=== PATIENT | female | born 1960 | race Caucasian/White ===

== ENCOUNTER → 2016-09-24 | Outpatient (CLI) | payer MEDICARE ==
[~2016-09-24] MED LIST: ADVAIR 250/501 EA INH; AMITRIPTYLINE H10 M1 PO; AMOXICILLIN500 M2 PO; ASPIR-LOW81 MG PO; ASPIRIN ENTERIC81 M1 PO; ATIVAN1 MG PO; AUGMENTIN 875875 MG PO; BENICAR5 MG PO; CARAFATE1 G1 PO; CARAFATE1 GM PO; CIPROFLOXACIN500 MG PO; CORDROL20 MG PO; DELTASONE10 MG PO; DELTASONE20 M1 PO; DILTIAZEM CD240 MG PO; DOXYCYCLINE100 M3 PO; DOXYCYCLINE100 MG PO; DOXYCYCLINE20 MG PO; DUONEB 3 MG/3 ML3 M1 INH; Duoneb 3ML 3 MG/3 ML INH; ELIQUIS5 M1 PO; Eliquis PO; FLONASE 0.05% 121 EA NAS; HYDROCODONE BIT1 T11 PO; IBU-8800 MG PO; K + POTASSIUM20 MEQ PO; K-Dur 20MEQ20 MEQ PO; KEFLEX500 MG PO; LASIX40 MG PO; LEVAQUIN750 M1 PO; LEVOFLOXACIN500 MG PO; LISINOPRIL5 MG PO; Lac-Hydrin 12%340 GM TP; MACROBID100 M1 PO; MEDROL DOSEPAK4 MG PO; METFORMIN500 MG PO; METOLAZONE2.5 MG PO; MULTAQ400 MG PO; NAPROSYN500 MG PO; NEXIUM40 MG PO; NORTRIPTYLINE H10 MG PO; OXYCODONE5 M1 PO; OXYGEN NAS; PERCOCET 325 MG1 TA2 PO; PERCOCET 325 MG1 TA5 PO; PERCOCET 325 MG1 TA6 PO; POTASSIUM20 MEQ PO; PRAVACHOL40 MG PO; PRAVASTATIN SOD40 MG PO; PREDNISONE10 MG PO; PREDNISONE20 MG PO; PREVACID30 M1 PO; PROAIR HFA0.09 MG/AC IH; PROTONIX40 MG PO; PROVERA10 MG PO; SINGULAIR10 M1 PO; SINGULAIR10 MG PO; SYMBICORT1 AE1 INH; TRAD5TAB1 PO; TRAMADOL HCL50 MG PO; VANCOCIN1000 MG/25 IV; VENTOLIN H0.09 MG/AC INH; VIBRA-TAB100 MG PO; VIBRAMYCIN100 MG PO; VIRTUSSIN A/C118 ML PO; VITAMIN D2000 IU PO; XANAX0.25 MG PO; ZITHROMAX Z PA250 MG PO; ZITHROMAX250 MG PO; ZITHROMAX500 M1 PO; ZOFRAN4 MG PO; ZOLOFT100 MG PO; ZYRTEC10 MG PO; Zofran4 MG PO
== END | disposition home or self-care (01) ==
LOC: RAD 18:24
DX: J44.1 Chronic obstructive pulmonary disease with (acute) exacerbation (principal); R06.02 Shortness of breath; R05 Cough; R09.89 Other specified symptoms and signs involving the circulatory and respiratory systems

== ENCOUNTER 2016-09-29 18:58 | Emergency (ER) | payer MEDICARE ==
[~2016-09-29] VITALS: Ht 160 cm; Wt 152.4 kg
[2016-09-29 19:04] VITALS: BP 150/73
[2016-09-29 19:34] LABS: BASO % 0.3 % (0.0-1.0); HEMATOCRIT 38.4 % (37.0-47.0); HEMOGLOBIN 11.8 g/dl (12.0-16.0); IG # 0.1 10*3/uL (0.0-0.1); LYMPH # 1.3 10*3/uL (1.3-4.4); LYMPH % 12.7 % (27.0-41.0); MEAN CORPUSCULAR HGB CONC 30.7 g/dl (33.0-37.0); MEAN PLATELET VOLUME 9.8 fl (9.6-12.3); MONO # 0.8 10*3/uL (0.1-1.0); MONO % 7.7 % (3.0-9.0); NEUT # 7.9 10*3/uL (2.3-7.9); NEUT % 78.5 % (47.0-73.0); PLATELET COUNT AUTOMATED 267 10*3/uL (130-400); RED BLOOD COUNT 4.22 10*6/uL (4.10-5.10); RED CELL DISTRI WIDTH 16.1 % (0-14.5); WHITE BLOOD COUNT 10.1 10*3/uL (4.8-10.8)
[2016-09-29 19:45] LABS: PROTHROMBIN TIME 10.4 SECONDS (9.0-12.4)
[2016-09-29 19:54] LABS: ALBUMIN 3.1 gm/dl (3.1-4.5); ALKALINE PHOSPHATASE 110 U/L (45-117); BILIRUBIN, TOTAL 0.8 mg/dl (0.2-1.0); BUN 12 mg/dl (7-24); C-REACTIVE PROTEIN 5.98 MG/DL (0-0.3); CARBON DIOXIDE 28 mmol/L (21-32); CHLORIDE 107 mmol/L (98-107); EST GLOM FILT AFRICAN AMERICAN > 60 ml/min; GLUCOSE 114 mg/dL (65-99); MAGNESIUM 1.9 mg/dL (1.5-2.1); POTASSIUM 4.5 mmol/L (3.5-5.1); SGOT/AST 10 IU/L (3-35); SGPT/ALT 21 U/L (12-78); SODIUM 141 mmol/L (136-145); TOTAL PROTEIN 6.9 gm/dL (6.4-8.2)
[2016-09-29 19:56] LABS: TROPONIN I < 0.015 ng/ml (<0.045)
[2016-09-29 21:11] LABS: BILIRUBIN 1+ (NEGATIVE); BLOOD NEGATIVE (NEGATIVE); CLARITY CLOUDY (CLEAR); COLOR YELLOW (YELLOW); GLUCOSE NEGATIVE (NEGATIVE); KETONE NEGATIVE (NEGATIVE); LEUKO ESTERASE NEGATIVE (NEGATIVE); NITRITE NEGATIVE (NEGATIVE); PROTEIN TRACE (NEGATIVE); SPECIFIC GRAVITY 1.025 (1.005-1.030)
[2016-09-29 21:21] LABS: BACTERIA 4+; RBC 0-2 rbc/hpf (0-2); URINE REFLEX COMMENT YES (NO)
[2016-09-29] MEDS ORDERED: MACROBID100 M1 PO (21:53)
[2016-09-29] MEDS ORDERED: ZOFRAN ODT4 MG SL (21:53)
== END 2016-09-29 21:53 | disposition home or self-care (01) ==
LOC: ED 18:58
PROVIDERS: Emergency Medicine Emergency Medical Services
DX: K52.9 Noninfective gastroenteritis and colitis, unspecified (principal); R82.71 Bacteriuria; I99.8 Other disorder of circulatory system; I48.91 Unspecified atrial fibrillation; E11.9 Type 2 diabetes mellitus without complications; Z88.1 Allergy status to other antibiotic agents; Z79.899 Other long term (current) drug therapy

== ENCOUNTER 2016-10-21 04:43 | Inpatient (IN) | payer MEDICARE ==
[2016-10-21] VITALS (12 sets, daily range): BP systolic 96–175; BP diastolic 40–75
[~2016-10-21] VITALS: Ht 160 cm; Wt 156.7 kg
[~2016-10-21 04:43] MED LIST changes: +ZOFRAN ODT4 MG SL
[2016-10-21 05:36] LABS: BASO # 0.1 10*3/uL (0.0-0.1); BASO % 0.7 % (0.0-1.0); HEMATOCRIT 34.9 % (37.0-47.0); HEMOGLOBIN 10.9 g/dl (12.0-16.0); IG # 0.2 10*3/uL (0.0-0.1); LYMPH # 2.2 10*3/uL (1.3-4.4); LYMPH % 18.4 % (27.0-41.0); MEAN CELL VOLUME 91.8 fl (81.0-99.0); MEAN CORPUSCULAR HGB 28.7 pg (27.0-31.0); MEAN CORPUSCULAR HGB CONC 31.2 g/dl (33.0-37.0); MEAN PLATELET VOLUME 9.9 fl (9.6-12.3); MONO # 0.8 10*3/uL (0.1-1.0); MONO % 6.4 % (3.0-9.0); NEUT # 8.9 10*3/uL (2.3-7.9); NEUT % 72.9 % (47.0-73.0); PLATELET COUNT AUTOMATED 261 10*3/uL (130-400); WHITE BLOOD COUNT 12.2 10*3/uL (4.8-10.8)
[2016-10-21 05:45] LABS: PROTHROMBIN TIME 10.6 SECONDS (9.0-12.4)
[2016-10-21 06:00] LABS: ALBUMIN 3.1 gm/dl (3.1-4.5); ALKALINE PHOSPHATASE 118 U/L (45-117); BILIRUBIN, TOTAL 0.4 mg/dl (0.2-1.0); BUN 15 mg/dl (7-24); CARBON DIOXIDE 29 mmol/L (21-32); CHLORIDE 107 mmol/L (98-107); EST GLOM FILT AFRICAN AMERICAN > 60 ml/min; GLUCOSE 135 mg/dL (65-99); POTASSIUM 4.2 mmol/L (3.5-5.1); SGOT/AST 10 IU/L (3-35); SGPT/ALT 22 U/L (12-78); SODIUM 144 mmol/L (136-145); TOTAL PROTEIN 6.7 gm/dL (6.4-8.2)
[2016-10-21 06:01] LABS: TROPONIN I < 0.015 ng/ml (<0.045)
[2016-10-21 06:32] LABS: BILIRUBIN NEGATIVE (NEGATIVE); BLOOD NEGATIVE (NEGATIVE); CLARITY CLEAR (CLEAR); COLOR YELLOW (YELLOW); GLUCOSE NEGATIVE (NEGATIVE); KETONE NEGATIVE (NEGATIVE); LEUKO ESTERASE NEGATIVE (NEGATIVE); NITRITE NEGATIVE (NEGATIVE); PH 5.5 (5.0-9.0); PROTEIN NEGATIVE (NEGATIVE); SPECIFIC GRAVITY 1.025 (1.005-1.030); UROBILINOGEN 0.2 E.U./dl (0.2-1.0)
[2016-10-21] MEDS ORDERED: ROBITUSSIN AC 110 ML PO (07:00)
[2016-10-21] MEDS ORDERED: NORCO 5-325 TA1 EACH PO (07:01)
[2016-10-21 07:29] LABS: BACTERIA TRACE; URINE REFLEX COMMENT NO (NO)
[2016-10-21 12:16] LABS: CKMB 1.3 ng/ml (0.5-3.6); CPK 83 U/L (26-192); TROPONIN I < 0.015 ng/ml (<0.045)
[2016-10-21 18:49] LABS: CKMB 1.2 ng/ml (0.5-3.6); CPK 97 U/L (26-192)
[2016-10-21 18:52] LABS: TROPONIN I < 0.015 ng/ml (<0.045)
[2016-10-22] VITALS: BP 118/48
[2016-10-22 00:43] LABS: CKMB 0.9 ng/ml (0.5-3.6); CPK 84 U/L (26-192)
[2016-10-22 00:48] LABS: TROPONIN I < 0.015 ng/ml (<0.045)
[2016-10-22 06:57] LABS: HEMATOCRIT 33.3 % (37.0-47.0); HEMOGLOBIN 10.4 g/dl (12.0-16.0); MEAN CELL VOLUME 92.5 fl (81.0-99.0); MEAN CORPUSCULAR HGB 28.9 pg (27.0-31.0); MEAN CORPUSCULAR HGB CONC 31.2 g/dl (33.0-37.0); MEAN PLATELET VOLUME 9.9 fl (9.6-12.3); PLATELET COUNT AUTOMATED 220 10*3/uL (130-400); RED CELL DISTRI WIDTH 16.4 % (0-14.5); WHITE BLOOD COUNT 8.3 10*3/uL (4.8-10.8)
[2016-10-22 07:09] LABS: BUN 10 mg/dl (7-24); CARBON DIOXIDE 30 mmol/L (21-32); CHLORIDE 105 mmol/L (98-107); EST GLOM FILT AFRICAN AMERICAN > 60 ml/min; GLUCOSE 240 mg/dL (65-99); POTASSIUM 4.9 mmol/L (3.5-5.1); SODIUM 142 mmol/L (136-145)
[2016-10-22 07:10] LABS: HEMOGLOBIN A1c 6.9 % (4.8-5.6)
[2016-10-22 07:13] LABS: CHOLESTEROL 135 mg/dL (<200); FREE T4 1.19 ng/dl (0.76-1.46); HDL CHOLESTEROL 84 mg/dl (40-60); LDL CHOLESTEROL 37 mg/dL (9-159); PHOSPHOROUS 3.4 mg/dL (2.5-4.9); TRIGLYCERIDES 71 mg/dl (<150); VLDL CHOLESTEROL 14 mg/dL (6-40)
[2016-10-22 07:18] LABS: EOSINOPHIL # 0.1 10*3/uL (0-0.4); EOSINOPHILS 1 % (1-4); LYMPHOCYTE # 0.4 10*3/uL (1.3-4.4); MONOCYTE # 0.1 10*3/uL (0.1-1.0); MYELOCYTES 1 % (0-0); NEUTROPHIL # 7.6 10*3/uL (2.3-7.9); NEUTROPHILS 92 % (47-73); POLYCHROMASIA SLIGHT; TOTAL CELLS COUNTED 100 #CELLS
[2016-10-22 07:19] LABS: PLATELET SUFFICIENCY NORMAL (NORMAL)
[2016-10-22 07:52] LABS: FOLIC ACID 9.36 ng/mL (>5.38); VITAMIN D, 25-HYDROXY 29.7 ng/mL (30-100)
[2016-10-22 08:00] VITALS: BP 128/76; BP 159/77
[2016-10-22 12:00] VITALS: BP 147/73; BP 160/75
[2016-10-22 16:00] VITALS: BP 138/72
[2016-10-22 20:00] VITALS: BP 145/67
[2016-10-23] VITALS: BP 148/66
[2016-10-23 07:09] LABS: HEMATOCRIT 33.4 % (37.0-47.0); HEMOGLOBIN 10.4 g/dl (12.0-16.0); MEAN CELL VOLUME 90.3 fl (81.0-99.0); MEAN CORPUSCULAR HGB 28.1 pg (27.0-31.0); MEAN CORPUSCULAR HGB CONC 31.1 g/dl (33.0-37.0); MEAN PLATELET VOLUME 10.6 fl (9.6-12.3); PLATELET COUNT AUTOMATED 251 10*3/uL (130-400); RED CELL DISTRI WIDTH 16.3 % (0-14.5); WHITE BLOOD COUNT 12.5 10*3/uL (4.8-10.8)
[2016-10-23 07:36] LABS: MONOCYTE # 0.3 10*3/uL (0.1-1.0); NEUTROPHIL # 11.3 10*3/uL (2.3-7.9); NEUTROPHILS 90 % (47-73); PLATELET SUFFICIENCY NORMAL (NORMAL); TOTAL CELLS COUNTED 100 #CELLS
[2016-10-23 08:00] VITALS: BP 157/90
[2016-10-23 12:00] VITALS: BP 114/69
[2016-10-23] MEDS ORDERED: DOXYCYCLINE100 MG PO (13:12)
[2016-10-23] MEDS ORDERED: PREDNISONE10 MG PO (13:12)
[2016-10-23] MEDS ORDERED: PERCOCET 325 MG1 TA6 PO (13:52)
== END 2016-10-23 14:40 | disposition home or self-care (01) | DRG 872 ==
LOC: ED 04:43 → 5E 06:14 → EDHOLD 06:14 → ICCU 06:22 → 5E 17:58
PROVIDERS: Emergency Medicine Emergency Medical Services; Student in an Organized Health Care Education/Training Program
DX: A41.9 Sepsis, unspecified organism (principal); Z99.81 Dependence on supplemental oxygen; J44.1 Chronic obstructive pulmonary disease with (acute) exacerbation; I50.32 Chronic diastolic (congestive) heart failure; I11.0 Hypertensive heart disease with heart failure; D64.9 Anemia, unspecified; E11.9 Type 2 diabetes mellitus without complications; Z68.44 Body mass index [BMI] 60.0-69.9, adult; R74.8 Abnormal levels of other serum enzymes; E66.01 Morbid (severe) obesity due to excess calories; I48.0 Paroxysmal atrial fibrillation; Z87.440 Personal history of urinary (tract) infections; Z87.01 Personal history of pneumonia (recurrent); Z90.49 Acquired absence of other specified parts of digestive tract; Z87.891 Personal history of nicotine dependence; Z82.5 Family history of asthma and other chronic lower respiratory diseases; Z88.1 Allergy status to other antibiotic agents; Z91.048 Other nonmedicinal substance allergy status; Z79.82 Long term (current) use of aspirin; Z79.84 Long term (current) use of oral hypoglycemic drugs; Z79.899 Other long term (current) drug therapy; Z85.42 Personal history of malignant neoplasm of other parts of uterus

== ENCOUNTER 2016-11-11 17:05 | Emergency (ER) | payer MEDICARE ==
[~2016-11-11] VITALS: Ht 160 cm; Wt 149.7 kg
[~2016-11-11 17:05] MED LIST changes: +NORCO 5-325 TA1 EACH PO; +ROBITUSSIN AC 110 ML PO
[2016-11-11 18:10] VITALS: BP 107/46
[2016-11-11 19:28] LABS: HEMATOCRIT 33.6 % (37.0-47.0); HEMOGLOBIN 10.7 g/dl (12.0-16.0); MEAN CELL VOLUME 91.8 fl (81.0-99.0); MEAN CORPUSCULAR HGB 29.2 pg (27.0-31.0); MEAN CORPUSCULAR HGB CONC 31.8 g/dl (33.0-37.0); MEAN PLATELET VOLUME 10.4 fl (9.6-12.3); PLATELET COUNT AUTOMATED 202 10*3/uL (130-400); RED BLOOD COUNT 3.66 10*6/uL (4.10-5.10); RED CELL DISTRI WIDTH 16.3 % (0-14.5); WHITE BLOOD COUNT 8.3 10*3/uL (4.8-10.8)
[2016-11-11 19:41] LABS: ALBUMIN 3.4 gm/dl (3.1-4.5); ALKALINE PHOSPHATASE 87 U/L (45-117); BILIRUBIN, TOTAL 0.7 mg/dl (0.2-1.0); BUN 12 mg/dl (7-24); CARBON DIOXIDE 27 mmol/L (21-32); CHLORIDE 106 mmol/L (98-107); EST GLOM FILT AFRICAN AMERICAN > 60 ml/min; GLUCOSE 97 mg/dL (65-99); POTASSIUM 4.1 mmol/L (3.5-5.1); SGOT/AST 19 IU/L (3-35); SGPT/ALT 47 U/L (12-78); SODIUM 142 mmol/L (136-145)
[2016-11-11 19:54] LABS: EOSINOPHIL # 0.2 10*3/uL (0-0.4); EOSINOPHILS 2 % (1-4); LYMPHOCYTE # 1.9 10*3/uL (1.3-4.4); MONOCYTE # 0.5 10*3/uL (0.1-1.0); NEUTROPHIL # 5.7 10*3/uL (2.3-7.9); NEUTROPHILS 69 % (47-73); TOTAL CELLS COUNTED 100 #CELLS
[2016-11-11 19:55] LABS: PLATELET SUFFICIENCY NORMAL (NORMAL)
[2016-11-11] MEDS ORDERED: DOXYCYCLINE100 M3 PO (20:51)
[2016-11-11 20:57] LABS: BILIRUBIN 1+ (NEGATIVE); BLOOD TRACE-INTACT (NEGATIVE); CLARITY CLOUDY (CLEAR); COLOR YELLOW (YELLOW); GLUCOSE NEGATIVE (NEGATIVE); KETONE TRACE (NEGATIVE); LEUKO ESTERASE 1+ (NEGATIVE); NITRITE NEGATIVE (NEGATIVE); PH 5.5 (5.0-9.0); PROTEIN 2+ (NEGATIVE); SPECIFIC GRAVITY >= 1.030 (1.005-1.030)
[2016-11-11 21:10] LABS: BACTERIA 4+; MUCOUS TRACE; URINE REFLEX COMMENT YES (NO); WBC TNTC wbc/hpf (0-5)
== END 2016-11-11 21:07 | disposition home or self-care (01) ==
LOC: ED 17:05
PROVIDERS: Registered Nurse
DX: J20.9 Acute bronchitis, unspecified (principal); Z87.891 Personal history of nicotine dependence; Z90.49 Acquired absence of other specified parts of digestive tract; Z88.1 Allergy status to other antibiotic agents; Z88.2 Allergy status to sulfonamides; Z79.899 Other long term (current) drug therapy; J44.9 Chronic obstructive pulmonary disease, unspecified; I10 Essential (primary) hypertension

== ENCOUNTER 2016-12-02 16:42 | Inpatient (IN) | payer MEDICARE ==
[~2016-12-02] VITALS: Ht 160 cm; Wt 158.4 kg
--- NOTE | ~2016-12-02 | CON ---
[place], [place] REPORT OF CONSULTATION NAME: TAMEKA DALTON [facility] #: [id number] UNIT #: [id number] ROOM: 531 DOCTOR: RODRIGO SANTIAGO MD BIRTHDATE: [birth year] DOS: 12/03/2016 REQUESTING PHYSICIAN: Dr. Wallace. INDICATION: Palpitation. ASSESSMENT: 1. Current presentation with recurrent symptomatic palpitation. 2. Evidence of recurrent atrial fibrillation that appears to be quite symptomatic. 3. Morbid obesity. 4. History of severe chronic obstructive pulmonary disease, on home oxygen. 5. Diabetes. 6. Hypertension. 7. Hyperlipidemia. 8. Similar presentation in October of last month. PLAN: 1. Cycle cardiac enzymes. 2. Continue Eliquis/Cardizem. 3. Continue Multaq. 4. EP consultation to consider ablation. 5. Consider sleep study for possible obstructive sleep apnea on CPAP. 6. Exercise, weight loss. 7. Consider gastric bypass. 8. The patient can be discharged home. 9. Stop aspirin and Lovenox while on Eliquis. 10. Early followup with Dr. Mcconnell or Dr. Moss within 1-2 weeks. HISTORY OF PRESENT ILLNESS: The patient is a pleasant 55-year-old female well known to our group with Dr. Moss. The patient carries history of paroxysmal atrial fibrillation. The patient apparently presented to the Emergency Room with recurrent symptomatic palpitation with fast heart rate. This occurred during the night. The patient felt quite uncomfortable. The episode lasted about 13 hours, prior to presenting to the Emergency Room. The patient was given her medication. She converted back to normal sinus rhythm by the time I am seeing her today. At no time, she had any chest pain, chest pressure, heaviness, or tightness. No dizziness, lightheadedness or near syncope. No fever, no chills, no night sweats. The patient on constant nasal cannula oxygen. Maintained good appetite, no weight loss. No significant weight change recently. No cough. No fever, no chills. PAST MEDICAL HISTORY: As detailed in my assessment. SOCIAL HISTORY: The patient quit smoking 5 years ago. No current alcohol or illicit drug abuse. FAMILY HISTORY: The patient's mother is still alive at age 73. Her father at age 79 of COPD. She has 3 brothers, but no sisters with no reported early family history of heart disease. [place], [place] REPORT OF CONSULTATION NAME: TAMEKA DALTON UNIT #: [id number] ROOM: 531 DOCTOR: RODRIGO SANTIAGO MD BIRTHDATE: [birth year] CURRENT MEDICATIONS: Zocor, vitamin D, potassium, Macrobid, Glucophage, Lasix, Lovenox, Multaq, Cardizem, aspirin, Eliquis, insulin, Dulera, Protonix, Ventolin, Percocet, Restoril, morphine, MOM, Dulcolax, Tylenol and [place]. ALLERGIES: THE PATIENT IS ALLERGIC TO SULFA, BACTRIM. REVIEW OF SYSTEMS: Currently, the patient denies any headache, diplopia or blurry vision. No fever, no chills, no night sweats. No abdominal pain, no bright red blood per rectum or tarry stools. The patient admits to joint pain, but no muscular pain. No anxiety or depression. No polyuria, no polydipsia, no skin rash. Review of all other systems has been negative. PHYSICAL EXAMINATION: GENERAL: The patient is alert, oriented x3, quite pleasant. VITAL SIGNS: Blood pressure 125/74, heart rate 71, respiratory rate of 20, temperature 97.9. HEENT: Extraocular muscles intact. Pupils equal, round, reactive to light. Conjunctivae: No pallor. Throat: No petechiae. NECK: Good upstroke. Unable to appreciate any bruit, no lymphadenopathy, no thyromegaly. HEART: S1, S2 with holosystolic murmur left upper sternal border, distant heart sounds. Unable to appreciate any rub, no retrosternal heave. CHEST AND BACK: No deformities. LUNGS: Significant decreased air movement, but no jo ann wheezing or rales. ABDOMEN: Morbidly obese, soft, nontender, present bowel sounds, no masses, no bruits. LOWER EXTREMITIES: There is mild to moderate lymphedema, 2/4 bilateral with inability to palpate distal pulses. NEUROLOGIC: Grossly nonfocal. SKIN: No significant rash (venous stasis in lower extremities). LABORATORY DATA: White count 8.8, hemoglobin 9.5, potassium 3.6, GFR more than 60%. Troponin less than 0.015 x3. Normal thyroid function test. RODRIGO SANTIAGO MD CM:CONSTR:REPORT OF CONSULTATION 1251 12/04/16 0116 interface
[2016-12-02 16:55] VITALS: BP 134/99
[2016-12-02] MEDS ORDERED: MACROBID100 M1 PO (16:59)
[2016-12-02 17:28] LABS: BASO % 0.3 % (0.0-1.0); EOS % 0.1 % (1.0-4.0); HEMATOCRIT 33.8 % (37.0-47.0); HEMOGLOBIN 10.3 g/dl (12.0-16.0); IG # 0.2 10*3/uL (0.0-0.1); LYMPH # 1.7 10*3/uL (1.3-4.4); LYMPH % 14.3 % (27.0-41.0); MEAN CELL VOLUME 95.8 fl (81.0-99.0); MEAN CORPUSCULAR HGB 29.2 pg (27.0-31.0); MEAN CORPUSCULAR HGB CONC 30.5 g/dl (33.0-37.0); MEAN PLATELET VOLUME 10.2 fl (9.6-12.3); MONO # 0.9 10*3/uL (0.1-1.0); MONO % 7.3 % (3.0-9.0); NEUT # 9.1 10*3/uL (2.3-7.9); NEUT % 76.5 % (47.0-73.0); PLATELET COUNT AUTOMATED 235 10*3/uL (130-400); RED BLOOD COUNT 3.53 10*6/uL (4.10-5.10); RED CELL DISTRI WIDTH 16.6 % (0-14.5); WHITE BLOOD COUNT 11.9 10*3/uL (4.8-10.8)
[2016-12-02 17:44] LABS: BILIRUBIN NEGATIVE (NEGATIVE); BLOOD NEGATIVE (NEGATIVE); CLARITY CLEAR (CLEAR); COLOR YELLOW (YELLOW); GLUCOSE NEGATIVE (NEGATIVE); KETONE TRACE (NEGATIVE); LEUKO ESTERASE NEGATIVE (NEGATIVE); NITRITE NEGATIVE (NEGATIVE); PH 5.5 (5.0-9.0); PROTEIN TRACE (NEGATIVE); SPECIFIC GRAVITY 1.025 (1.005-1.030); UROBILINOGEN 0.2 E.U./dl (0.2-1.0)
[2016-12-02 17:45] LABS: ALBUMIN 3.1 gm/dl (3.1-4.5); ALKALINE PHOSPHATASE 91 U/L (45-117); BILIRUBIN, TOTAL 0.4 mg/dl (0.2-1.0); BUN 13 mg/dl (7-24); C-REACTIVE PROTEIN 1.05 MG/DL (0-0.3); CARBON DIOXIDE 28 mmol/L (21-32); CHLORIDE 110 mmol/L (98-107); CKMB 1.3 ng/ml (0.5-3.6); CPK 73 U/L (26-192); EST GLOM FILT AFRICAN AMERICAN > 60 ml/min; GLUCOSE 110 mg/dL (65-99); POTASSIUM 3.5 mmol/L (3.5-5.1); SGOT/AST 11 IU/L (3-35); SGPT/ALT 23 U/L (12-78); SODIUM 149 mmol/L (136-145); TOTAL PROTEIN 6.4 gm/dL (6.4-8.2)
[2016-12-02 17:51] LABS: TROPONIN I < 0.015 ng/ml (<0.045)
[2016-12-02 17:54] LABS: PROTHROMBIN TIME 10.4 SECONDS (9.0-12.4)
[2016-12-02 18:17] LABS: BACTERIA TRACE
[2016-12-02 18:18] LABS: EPITHELIAL CELLS 25-30; URINE REFLEX COMMENT NO (NO)
[2016-12-02 21:21] VITALS: BP 131/60
[2016-12-02] MEDS ORDERED: PRAVACHOL40 MG PO (22:10)
[2016-12-02] MEDS ORDERED: VITAMIN D1000 IU PO (22:12)
[2016-12-03] VITALS: BP 141/75
[2016-12-03 04:57] LABS: BASO % 0.3 % (0.0-1.0); HEMATOCRIT 30.9 % (37.0-47.0); HEMOGLOBIN 9.5 g/dl (12.0-16.0); IG # 0.1 10*3/uL (0.0-0.1); LYMPH # 1.5 10*3/uL (1.3-4.4); LYMPH % 17.1 % (27.0-41.0); MEAN CELL VOLUME 96.6 fl (81.0-99.0); MEAN CORPUSCULAR HGB 29.7 pg (27.0-31.0); MEAN CORPUSCULAR HGB CONC 30.7 g/dl (33.0-37.0); MEAN PLATELET VOLUME 10.3 fl (9.6-12.3); MONO # 0.6 10*3/uL (0.1-1.0); MONO % 6.5 % (3.0-9.0); NEUT # 6.6 10*3/uL (2.3-7.9); NUCLEATED RED BLOOD CELL 0.2 % (0.0-0.0); PLATELET COUNT AUTOMATED 184 10*3/uL (130-400); RED CELL DISTRI WIDTH 16.5 % (0-14.5); WHITE BLOOD COUNT 8.8 10*3/uL (4.8-10.8)
[2016-12-03 05:09] LABS: BUN 9 mg/dl (7-24); CARBON DIOXIDE 31 mmol/L (21-32); CHLORIDE 109 mmol/L (98-107); EST GLOM FILT AFRICAN AMERICAN > 60 ml/min; GLUCOSE 86 mg/dL (65-99); MAGNESIUM 1.9 mg/dL (1.5-2.1); POTASSIUM 3.6 mmol/L (3.5-5.1); SODIUM 149 mmol/L (136-145)
[2016-12-03 05:14] LABS: FREE T4 1.16 ng/dl (0.76-1.46); PHOSPHOROUS 3.3 mg/dL (2.5-4.9)
[2016-12-03 08:00] VITALS: BP 137/66
[2016-12-03 12:00] VITALS: BP 125/74
[2016-12-03 16:00] VITALS: BP 135/47
[2016-12-03 20:00] VITALS: BP 121/56
[2016-12-04] VITALS: BP 124/52
[2016-12-04 08:00] VITALS: BP 130/50
== END 2016-12-04 12:30 | disposition home or self-care (01) | DRG 309 ==
LOC: ED 16:42 → EDHOLD 18:58 → 5E 18:58
PROVIDERS: Emergency Medicine; Internal Medicine
DX: I48.0 Paroxysmal atrial fibrillation (principal); E87.0 Hyperosmolality and hypernatremia; I50.32 Chronic diastolic (congestive) heart failure; I11.0 Hypertensive heart disease with heart failure; Z68.43 Body mass index [BMI] 50.0-59.9, adult; E11.65 Type 2 diabetes mellitus with hyperglycemia; E66.01 Morbid (severe) obesity due to excess calories; E78.5 Hyperlipidemia, unspecified; D64.9 Anemia, unspecified; J44.9 Chronic obstructive pulmonary disease, unspecified; Z85.59 Personal history of malignant neoplasm of other urinary tract organ; Z98.891 History of uterine scar from previous surgery; Z90.49 Acquired absence of other specified parts of digestive tract; Z87.891 Personal history of nicotine dependence; Z82.5 Family history of asthma and other chronic lower respiratory diseases; Z91.048 Other nonmedicinal substance allergy status; Z88.2 Allergy status to sulfonamides; Z88.8 Allergy status to other drugs, medicaments and biological substances; Z79.82 Long term (current) use of aspirin; Z79.84 Long term (current) use of oral hypoglycemic drugs; Z79.899 Other long term (current) drug therapy

== ENCOUNTER → 2016-12-27 | Outpatient (CLI) | payer MEDICARE ==
[~2016-12-27] MED LIST changes: +VITAMIN D1000 IU PO
== END | disposition home or self-care (01) ==
LOC: CARD 02:58
DX: I48.0 Paroxysmal atrial fibrillation (principal); J44.9 Chronic obstructive pulmonary disease, unspecified; E11.8 Type 2 diabetes mellitus with unspecified complications; E78.01 Familial hypercholesterolemia; I10 Essential (primary) hypertension; Z72.0 Tobacco use

== ENCOUNTER 2017-03-10 15:44 | Emergency (ER) | payer MEDICARE ==
[~2017-03-10] VITALS: Wt 158.8 kg
--- NOTE | ~2017-03-10 | EKG ---
[place], [place] ELECTROCARDIOGRAM REPORT NAME: TAMEKA DALTON UNIT #: [id number] ROOM: DOCTOR: SHONA CLARK MD BIRTHDATE: [birth year] DOS: 03/10/2017 RATE AND RHYTHM: Normal sinus rhythm at 62 beats per minute. VA interval 144 milliseconds. QRS duration 101 milliseconds, corrected QT interval 433 milliseconds, QRS axis 42. IMPRESSION: Normal sinus rhythm, normal EKG. TIME: 16:50:39. SHONA CLARK MD CM:EKGRPT:ELECTROCARDIOGRAM REPORT [id number] SHONA CLARK MD
[2017-03-10 15:29] LABS: BASO % 0.3 % (0.0-1.0); HEMATOCRIT 35.6 % (37.0-47.0); HEMOGLOBIN 10.9 g/dl (12.0-16.0); MEAN CELL VOLUME 93.4 fl (81.0-99.0); MEAN CORPUSCULAR HGB 28.6 pg (27.0-31.0); MEAN CORPUSCULAR HGB CONC 30.6 g/dl (33.0-37.0); MEAN PLATELET VOLUME 10.4 fl (9.6-12.3); MONO # 0.7 10*3/uL (0.1-1.0); MONO % 5.9 % (3.0-9.0); NEUT % 75.3 % (47.0-73.0); PLATELET COUNT AUTOMATED 240 10*3/uL (130-400); RED BLOOD COUNT 3.81 10*6/uL (4.10-5.10); RED CELL DISTRI WIDTH 14.6 % (0-14.5); WHITE BLOOD COUNT 11.9 10*3/uL (4.8-10.8)
[2017-03-10 15:59] VITALS: BP 118/60
[2017-03-10 16:13] LABS: ALBUMIN 3.2 gm/dl (3.1-4.5); ALKALINE PHOSPHATASE 121 U/L (45-117); BUN 12 mg/dl (7-24); CHLORIDE 106 mmol/L (98-107); CREATININE 0.86 mg/dL (0.55-1.02); POTASSIUM 4.2 mmol/L (3.5-5.1); SGOT/AST 12 IU/L (3-35); SGPT/ALT 24 U/L (12-78); SODIUM 142 mmol/L (136-145); TOTAL PROTEIN 7.2 gm/dL (6.4-8.2)
[2017-03-10 16:23] LABS: BILIRUBIN 1+ (NEGATIVE); BLOOD 2+ (NEGATIVE); CLARITY CLOUDY (CLEAR); COLOR YELLOW (YELLOW); GLUCOSE NEGATIVE (NEGATIVE); KETONE TRACE (NEGATIVE); LEUKO ESTERASE 3+ (NEGATIVE); NITRITE NEGATIVE (NEGATIVE); PH 5.5 (5.0-9.0); SPECIFIC GRAVITY 1.025 (1.005-1.030); UROBILINOGEN 0.2 E.U./dl (0.2-1.0)
[2017-03-10 16:43] LABS: BACTERIA 2+; RBC TNTC rbc/hpf (0-2); WBC TNTC wbc/hpf (0-5)
[2017-03-10 17:14] LABS: ACT PARTIAL THROMBO TIME 24.6 SECONDS (20.8-31.5)
[2017-03-10 17:23] LABS: CKMB 1.6 ng/ml (0.5-3.6); CPK 102 U/L (26-192); LIPASE 110 U/L (73-393)
[2017-03-10 17:25] LABS: TROPONIN I < 0.015 ng/ml (<0.045)
[2017-03-10] MEDS ORDERED: CEPHALEXIN500 M1 PO (18:36)
[2017-03-10] MEDS ORDERED: MEDROL DOSEPAK4 MG PO (18:37)
== END 2017-03-10 19:01 | disposition home or self-care (01) ==
LOC: ED 15:45
PROVIDERS: Emergency Medicine; Nurse Practitioner Family; Urology
DX: N39.0 Urinary tract infection, site not specified (principal); J44.9 Chronic obstructive pulmonary disease, unspecified; I11.0 Hypertensive heart disease with heart failure; I50.30 Unspecified diastolic (congestive) heart failure; E11.9 Type 2 diabetes mellitus without complications; Z88.1 Allergy status to other antibiotic agents; Z88.8 Allergy status to other drugs, medicaments and biological substances; Z79.899 Other long term (current) drug therapy

== ENCOUNTER → 2017-03-19 | Outpatient (CLI) | payer MEDICARE ==
[~2017-03-19] MED LIST changes: +CEPHALEXIN500 M1 PO
[2017-03-19 11:31] LABS: BILIRUBIN NEGATIVE (NEGATIVE); BLOOD NEGATIVE (NEGATIVE); CLARITY SL CLOUDY (CLEAR); COLOR YELLOW (YELLOW); GLUCOSE NEGATIVE (NEGATIVE); KETONE NEGATIVE (NEGATIVE); LEUKO ESTERASE NEGATIVE (NEGATIVE); NITRITE NEGATIVE (NEGATIVE); PH 5.5 (5.0-9.0); UROBILINOGEN 0.2 E.U./dl (0.2-1.0)
[2017-03-19 11:45] LABS: MUCOUS 2+
== END | disposition home or self-care (01) ==
LOC: LAB 10:52
PROVIDERS: Nurse Practitioner Family
DX: N39.0 Urinary tract infection, site not specified (principal)

== ENCOUNTER → 2017-06-11 | Outpatient (CLI) | payer MEDICARE | END | disposition home or self-care (01) | LOC: MAMMO 13:48 | DX: Z12.31 Encounter for screening mammogram for malignant neoplasm of breast (principal) ==

== ENCOUNTER → 2017-08-02 | Outpatient (CLI) | payer MEDICARE | END | disposition home or self-care (01) | LOC: RAD 17:09 | DX: S93.504A Unspecified sprain of right lesser toe(s), initial encounter (principal); X58.XXXA Exposure to other specified factors, initial encounter; Y93.89 Activity, other specified; Y92.89 Other specified places as the place of occurrence of the external cause; Y99.8 Other external cause status ==

== ENCOUNTER → 2017-08-08 | Outpatient (CLI) | payer MEDICARE | END | disposition home or self-care (01) | LOC: CT 14:44 | DX: S92.911D Unspecified fracture of right toe(s), subsequent encounter for fracture with routine healing (principal); X58.XXXD Exposure to other specified factors, subsequent encounter ==

== ENCOUNTER 2017-08-19 16:08 | Inpatient (IN) | payer MEDICARE ==
[~2017-08-19] VITALS: Ht 157.5 cm; Wt 165.7 kg
--- NOTE | ~2017-08-19 | WRIGHTHP ---
[place], [place] PATIENT HISTORY AND PHYSICAL EXAM NAME: TAMEKA DALTON [facility] #: [id number] UNIT #: [id number] ROOM: 517 DOCTOR: SHONA CLARK MD BIRTHDATE: [birth year] DOS: The patient is being directly admitted from the office. CHIEF COMPLAINT: 1. Shortness of breath, all weekend. 2. The patient thinks she has UTI. HISTORY OF PRESENTING ILLNESS: This is a 56-year-old patient who has known history of COPD. She came to the office with shortness of breath and productive phlegm. The patient had dyspnea on exertion. The patient is on home oxygen at 2.5 liters. She denies any associated chest pain, fever, chills, nausea and she admits that she is having some drainage. The patient had last pneumonia shot in 2006, so at the time of discharge, the patient should be given pneumonia shot. The patient does have frequent UTIs and I am going to check her urine for urinary tract infection. She also has history of endometrial cancer and she got radiation for that and gets frequent UTIs, after that. The patient was showing respiratory distress in the office and was having difficulty in completing her sentences, so the patient is being admitted for COPD exacerbation. PAST MEDICAL HISTORY: 1. COPD. She smoked 1 pack per day for 30 years, quit in 2011. Her FEV1 was 36% in 2013. 2. Morbid obesity. Her BMI is more than 62.47. 3. Asthma. 4. GERD. 5. Hyperlipidemia. 6. Fatty liver. 7. Intermittent atrial fibrillation. 8. Sleep apnea. She is noncompliant with CPAP machine. 9. Osteoarthritis of the left knee. 10. Endometrial cancer. It was not amenable to surgery secondary to abdominal wall hernia and mesh. The patient had radiation done. 11. She had normal cardiac catheterization on 01/09/2017 at [facility]. 12. 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 PAST SURGICAL HISTORY: 1. . 2. Cholecystectomy. 3. Abdominal hernia repair. 4. Dilatation and curettage. FAMILY HISTORY: Father at 69 of COPD. Mother alive at 68 years of age. She had 1 son who at 4 days of age. Three brothers, healthy. Two sons and 1 daughter, they are healthy. SOCIAL HISTORY: Tobacco use. She is not smoking tobacco, but she is a former [place], [place] PATIENT HISTORY AND PHYSICAL EXAM [id number] UN[facility] #: [id number] ROOM: 517 DOCTOR: SHONA CLARK MD BIRTHDATE: [birth year] tobacco abuser. No alcohol. No illicit drug use. ALLERGIES: She is allergic to BACTRIM, LEVAQUIN, HYDROCHLOROTHIAZIDE, LIPITOR causes leg pain, VICTOZA courses blurring of vision HOSPITALIZATION: She was hospitalized in the past for abdominal hernia, for cholecystectomy and . REVIEW OF SYSTEMS: All 10-point of review of systems is negative except for sinus pressure, cough, shortness of breath at rest, shortness of breath with exertion and she has productive phlegm. She is wheezing She otherwise denied any chest pain on deep breathing. MEDICATIONS: She is on DuoNeb nebulizer 4 times a day, Percocet 5/325 b.i.d. p.r.n. as needed, metformin 500 twice a day, Benicar 5 mg daily, amitriptyline 10 mg 0.5 tablet daily, diltiazem 240 mg daily, Multaq 400 one tablet with meals twice a day, Eliquis 5 mg twice a day, vitamin D 1 tablet daily, baclofen 10 mg with food, Pravachol 40 mg daily, Prevacid 30 mg daily, Lasix 40 mg daily, Klor-Con 20 mEq daily, Singulair 10 mg daily. PHYSICAL EXAMINATION: VITAL SIGNS: Temperature is 97.8, heart rate 83, blood pressure 140/70, oxygen saturation 92%, respiratory rate 20. GENERAL: The patient is in mild distress, otherwise well-nourished, well-developed. HEAD: Normocephalic, atraumatic. EYES: Pupils equal, round, react to light. Extraocular movements intact. EAR, NOSE AND THROAT. The patient has right-sided tympanic membrane dullness. Oral cavity mucosa moist. NECK: No known cervical lymphadenopathy. Neck is supple. SKIN: Warm and dry. HEART: S1, S2, regular in rate and no murmur, gallop or rub. LUNGS: The patient has decreased breath sounds bilaterally and mild wheezing. ABDOMEN: Soft, nontender. EXTREMITIES: No cyanosis or clubbing. There is trace pedal edema. NEUROLOGIC: No focal deficit. LABORATORY DATA: Urinalysis showed UTI. ASSESSMENT: At this time, 1. Chronic obstructive pulmonary disease exacerbation. 2. Acute respiratory failure. 3. Dyspnea on exertion. 4. Urinary tract infection. 5. Underlying diabetes. 6. Vitamin D deficiency. 7. Hyperlipidemia. 8. Gastroesophageal reflux disease. 9. Asthma. 10. Pedal edema. [place], [place] PATIENT HISTORY AND PHYSICAL EXAM [facility]: [id number] #: [id number] ROOM: [facility] DOCTOR: SHONA CLARK MD BIRTHDATE: [birth year] PLAN OF CARE: 1. Admit to the hospital on monitored bed. 2. Rocephin 1 g daily, Zithromax 500 mg daily, DuoNeb q. 4 hours. 3. Solu-Medrol 60 mg b.i.d. 4. Monitor blood sugars before meals and start insulin sliding scale. 5. Hemoglobin A1c. 6. Lovenox 40 mg subcutaneous daily for DVT prophylaxis (pharmacy to dose for kidney function. 7. Diabetic diet. 8. Sputum gram stain, culture and sensitivity. 10. Chest x-ray. 11. Continue all home medications. The patient was seen with medical student, Ayush Guzman in the office. SHONA CLARK MD CM:HISPHYS:PATIENT HISTORY AND PHYSICAL EXAMINATION [id number] SHONA CLARK MD 08/19/171954 interface
[2017-08-19 16:40] VITALS: BP 134/69
[2017-08-19 18:04] LABS: BASO # 0.1 10*3/uL (0.0-0.1); BASO % 0.7 % (0.0-1.0); HEMATOCRIT 33.3 % (37.0-47.0); HEMOGLOBIN 10.2 g/dl (12.0-16.0); LYMPH # 1.5 10*3/uL (1.3-4.4); LYMPH % 14.5 % (27.0-41.0); MEAN CELL VOLUME 92.8 fl (81.0-99.0); MEAN CORPUSCULAR HGB 28.4 pg (27.0-31.0); MEAN CORPUSCULAR HGB CONC 30.6 g/dl (33.0-37.0); MEAN PLATELET VOLUME 10.5 fl (9.6-12.3); MONO # 0.6 10*3/uL (0.1-1.0); MONO % 5.7 % (3.0-9.0); NEUT # 8.2 10*3/uL (2.3-7.9); NEUT % 77.7 % (47.0-73.0); PLATELET COUNT AUTOMATED 226 10*3/uL (130-400); RED BLOOD COUNT 3.59 10*6/uL (4.10-5.10); RED CELL DISTRI WIDTH 15.5 % (0-14.5); WHITE BLOOD COUNT 10.6 10*3/uL (4.8-10.8)
[2017-08-19] MEDS ORDERED: METOPROLOL SUCC25 M2 PO (18:05)
[2017-08-19] MEDS ORDERED: MUCINEX DM 30/61 TAB PO (18:08)
[2017-08-19] MEDS ORDERED: AMITRIPTYLINE10 MG PO (18:14)
[2017-08-19 18:22] LABS: ALBUMIN 3.2 gm/dl (3.1-4.5); ALKALINE PHOSPHATASE 106 U/L (45-117); BUN 9 mg/dl (7-24); CHLORIDE 102 mmol/L (98-107); CREATININE 0.76 mg/dL (0.55-1.02); POTASSIUM 3.5 mmol/L (3.5-5.1); SGOT/AST 9 IU/L (3-35); SGPT/ALT 21 U/L (12-78); SODIUM 143 mmol/L (136-145); TOTAL PROTEIN 6.9 gm/dL (6.4-8.2)
[2017-08-19 20:00] VITALS: BP 129/58; BP 132/78
[2017-08-19 20:34] LABS: BILIRUBIN NEGATIVE (NEGATIVE); BLOOD NEGATIVE (NEGATIVE); CLARITY SL CLOUDY (CLEAR); COLOR YELLOW (YELLOW); GLUCOSE NEGATIVE (NEGATIVE); KETONE TRACE (NEGATIVE); LEUKO ESTERASE 1+ (NEGATIVE); NITRITE POSITIVE (NEGATIVE); PH 5.5 (5.0-9.0); SPECIFIC GRAVITY 1.025 (1.005-1.030); UROBILINOGEN 0.2 E.U./dl (0.2-1.0)
[2017-08-19 20:41] LABS: BACTERIA 3+; EPITHELIAL CELLS 20-25; WBC 31-40 wbc/hpf (0-5)
[2017-08-20] VITALS: BP 106/68
[2017-08-20 06:35] LABS: HEMATOCRIT 30.8 % (37.0-47.0); HEMOGLOBIN 9.3 g/dl (12.0-16.0); MEAN CELL VOLUME 92.8 fl (81.0-99.0); MEAN CORPUSCULAR HGB CONC 30.2 g/dl (33.0-37.0); MEAN PLATELET VOLUME 10.8 fl (9.6-12.3); PLATELET COUNT AUTOMATED 192 10*3/uL (130-400); RED BLOOD COUNT 3.32 10*6/uL (4.10-5.10); RED CELL DISTRI WIDTH 15.3 % (0-14.5); WHITE BLOOD COUNT 7.3 10*3/uL (4.8-10.8)
[2017-08-20 07:01] LABS: BUN 12 mg/dl (7-24); CHLORIDE 102 mmol/L (98-107); CREATININE 0.86 mg/dL (0.55-1.02); POTASSIUM 4.4 mmol/L (3.5-5.1); SODIUM 139 mmol/L (136-145)
[2017-08-20 07:11] LABS: PLATELET SUFFICIENCY NORMAL (NORMAL); POLYCHROMASIA SLIGHT; TOTAL CELLS COUNTED 100 #CELLS
[2017-08-20] MEDS ORDERED: LASIX40 MG PO (07:34)
[2017-08-20] MEDS ORDERED: K-TAB20 MEQ PO (07:34)
[2017-08-20] MEDS ORDERED: DUONEB 3 MG/3 ML3 M1 INH (07:36)
[2017-08-20 08:00] VITALS: BP 171/66
[2017-08-20 12:00] VITALS: BP 143/54
[2017-08-20 16:00] VITALS: BP 139/68
[2017-08-20 20:00] VITALS: BP 152/53
[2017-08-21] VITALS: BP 123/42; BP 126/42
[2017-08-21 06:30] LABS: BASO % 0.2 % (0.0-1.0); HEMATOCRIT 31.3 % (37.0-47.0); HEMOGLOBIN 9.7 g/dl (12.0-16.0); LYMPH # 0.6 10*3/uL (1.3-4.4); LYMPH % 5.9 % (27.0-41.0); MEAN CORPUSCULAR HGB 28.2 pg (27.0-31.0); MONO # 0.2 10*3/uL (0.1-1.0); MONO % 2.4 % (3.0-9.0); NEUT # 8.7 10*3/uL (2.3-7.9); NEUT % 89.5 % (47.0-73.0); PLATELET COUNT AUTOMATED 201 10*3/uL (130-400); RED BLOOD COUNT 3.44 10*6/uL (4.10-5.10); RED CELL DISTRI WIDTH 15.4 % (0-14.5); WHITE BLOOD COUNT 9.8 10*3/uL (4.8-10.8)
[2017-08-21 06:58] LABS: BUN 13 mg/dl (7-24); CHLORIDE 101 mmol/L (98-107); CREATININE 0.93 mg/dL (0.55-1.02); POTASSIUM 3.9 mmol/L (3.5-5.1); SODIUM 140 mmol/L (136-145)
[2017-08-21 08:00] VITALS: BP 152/58
[2017-08-21 12:00] VITALS: BP 103/33
[2017-08-21 16:00] VITALS: BP 121/38
[2017-08-21 20:00] VITALS: BP 140/49
[2017-08-22] VITALS: BP 105/48
[2017-08-22 07:11] LABS: BUN 17 mg/dl (7-24); CHLORIDE 102 mmol/L (98-107); CREATININE 1.08 mg/dL (0.55-1.02); SODIUM 139 mmol/L (136-145)
[2017-08-22 08:00] VITALS: BP 112/47
[2017-08-22 12:00] VITALS: BP 113/41
[2017-08-22] MEDS ORDERED: ASPIRIN ADULT L81 M2 PO (13:25)
[2017-08-22] MEDS ORDERED: PREDNISONE10 MG PO (13:28)
[2017-08-22] MEDS ORDERED: DOXYCYCLINE100 M3 PO (13:28)
[2017-08-22] MEDS ORDERED: [UNRECOGNIZED DRUG - OTHER] T (13:28)
== END 2017-08-22 14:17 | disposition home or self-care (01) | DRG 193 ==
LOC: 5E 16:08
PROVIDERS: Hospitalist; Internal Medicine; Student in an Organized Health Care Education/Training Program
DX: J18.9 Pneumonia, unspecified organism (principal); J96.00 Acute respiratory failure, unspecified whether with hypoxia or hypercapnia; I50.32 Chronic diastolic (congestive) heart failure; N39.0 Urinary tract infection, site not specified; J44.1 Chronic obstructive pulmonary disease with (acute) exacerbation; J44.0 Chronic obstructive pulmonary disease with (acute) lower respiratory infection; Z68.44 Body mass index [BMI] 60.0-69.9, adult; I11.0 Hypertensive heart disease with heart failure; Z99.81 Dependence on supplemental oxygen; E11.65 Type 2 diabetes mellitus with hyperglycemia; E66.01 Morbid (severe) obesity due to excess calories; I48.91 Unspecified atrial fibrillation; K21.9 Gastro-esophageal reflux disease without esophagitis; E55.9 Vitamin D deficiency, unspecified; N88.8 Other specified noninflammatory disorders of cervix uteri; J20.9 Acute bronchitis, unspecified; D64.9 Anemia, unspecified; G47.30 Sleep apnea, unspecified; M17.12 Unilateral primary osteoarthritis, left knee; E78.5 Hyperlipidemia, unspecified; Z87.891 Personal history of nicotine dependence; Z98.891 History of uterine scar from previous surgery; Z79.82 Long term (current) use of aspirin; Z79.84 Long term (current) use of oral hypoglycemic drugs; Z79.899 Other long term (current) drug therapy; Z90.49 Acquired absence of other specified parts of digestive tract; Z88.1 Allergy status to other antibiotic agents; Z88.8 Allergy status to other drugs, medicaments and biological substances; Z82.5 Family history of asthma and other chronic lower respiratory diseases

== ENCOUNTER 2017-09-24 19:24 | Emergency (ER) | payer MEDICARE ==
[~2017-09-24] VITALS: Ht 160 cm; Wt 158.8 kg
[~2017-09-24 19:24] MED LIST changes: +AMITRIPTYLINE10 MG PO; +ASPIRIN ADULT L81 M2 PO; +K-TAB20 MEQ PO; +METOPROLOL SUCC25 M2 PO; +MUCINEX DM 30/61 TAB PO; +[UNRECOGNIZED DRUG - OTHER] T
[2017-09-24] MEDS ORDERED: ONDANSETRON4 MG SL (19:43)
[2017-09-24 21:32] VITALS: BP 100/55
== END 2017-09-24 21:35 | disposition home or self-care (01) ==
LOC: ED 19:24
DX: R10.32 Left lower quadrant pain (principal); Z87.891 Personal history of nicotine dependence; Z98.890 Other specified postprocedural states; Z90.49 Acquired absence of other specified parts of digestive tract; Z79.899 Other long term (current) drug therapy; Z79.82 Long term (current) use of aspirin; Z88.1 Allergy status to other antibiotic agents; Z88.8 Allergy status to other drugs, medicaments and biological substances; Z88.6 Allergy status to analgesic agent; Z99.81 Dependence on supplemental oxygen

== ENCOUNTER → 2017-10-30 | Outpatient (CLI) | payer MEDICARE ==
[~2017-10-30] MED LIST changes: +ONDANSETRON4 MG SL
== END | disposition home or self-care (01) ==
LOC: RAD 10:10
DX: M25.551 Pain in right hip (principal)

== ENCOUNTER → 2018-03-24 | Outpatient (CLI) | payer MEDICARE ==
[~2018-03-24] MED LIST changes: +BACLOFEN5 MG PO; +Ipratropium Brom3 ML INH; +KLOR-CON M2020 ME1 PO; +Lac-Hydrin 12%340 GM T; +NEURONTIN600 MG PO; +PERCOCET 5-3251 EACH PO; +PREDNISONE50 MG PO
[2018-03-24 16:17] LABS: BILIRUBIN 1+ (NEGATIVE); BLOOD NEGATIVE (NEGATIVE); CLARITY SL CLOUDY (CLEAR); COLOR YELLOW (YELLOW); GLUCOSE NEGATIVE (NEGATIVE); KETONE NEGATIVE (NEGATIVE); NITRITE NEGATIVE (NEGATIVE); UROBILINOGEN 0.2 E.U./dl (0.2-1.0)
[2018-03-24 16:18] LABS: LEUKO ESTERASE NEGATIVE (NEGATIVE)
[2018-03-24 16:19] LABS: BASO # 0.1 10*3/uL (0.0-0.1); BASO % 0.6 % (0.0-1.0); EOS % 0.1 % (1.0-4.0); HEMATOCRIT 34.1 % (37.0-47.0); HEMOGLOBIN 10.4 g/dl (12.0-16.0); LYMPH # 1.2 10*3/uL (1.3-4.4); LYMPH % 9.8 % (27.0-41.0); MEAN CELL VOLUME 89.7 fl (81.0-99.0); MEAN CORPUSCULAR HGB 27.4 pg (27.0-31.0); MEAN CORPUSCULAR HGB CONC 30.5 g/dl (33.0-37.0); MEAN PLATELET VOLUME 10.3 fl (9.6-12.3); MONO # 0.7 10*3/uL (0.1-1.0); MONO % 5.4 % (3.0-9.0); NEUT # 10.5 10*3/uL (2.3-7.9); PLATELET COUNT AUTOMATED 278 10*3/uL (130-400); RED CELL DISTRI WIDTH 16.6 % (0-14.5); WHITE BLOOD COUNT 12.7 10*3/uL (4.8-10.8)
[2018-03-24 16:24] LABS: BACTERIA 1+; MUCOUS 1+
[2018-03-24 16:25] LABS: EPITHELIAL CELLS 41-50; RBC 0-2 rbc/hpf (0-2)
[2018-03-24 16:36] LABS: ALBUMIN 3.3 gm/dl (3.1-4.5); ALKALINE PHOSPHATASE 122 U/L (45-117); BUN 17 mg/dl (7-24); CHLORIDE 103 mmol/L (98-107); CREATININE 0.85 mg/dL (0.55-1.02); POTASSIUM 4.3 mmol/L (3.5-5.1); SGOT/AST 12 IU/L (3-35); SGPT/ALT 18 U/L (12-78); SODIUM 141 mmol/L (136-145); TOTAL PROTEIN 7.2 gm/dL (6.4-8.2)
== END | disposition home or self-care (01) ==
LOC: LAB 15:45
PROVIDERS: Urology
DX: R31.9 Hematuria, unspecified (principal)

== ENCOUNTER → 2018-04-30 | Outpatient (CLI) | payer MEDICARE | END | disposition home or self-care (01) | LOC: RAD 15:46 | DX: J43.9 Emphysema, unspecified (principal); I48.0 Paroxysmal atrial fibrillation; Z87.891 Personal history of nicotine dependence ==

== ENCOUNTER → 2018-09-15 | Outpatient (CLI) | payer MEDICARE ==
[~2018-09-15] MED LIST changes: +CHERATUSSIN AC118 M1 PO
== END | disposition home or self-care (01) ==
LOC: LAB 15:43
PROVIDERS: Urology
DX: R31.9 Hematuria, unspecified (principal)

== ENCOUNTER → 2018-12-28 | Day surgery (SDC) | payer MEDICARE ==
[~2018-12-28] VITALS: Ht 160 cm; Wt 156.5 kg
[~2018-12-28] MED LIST changes: +AUGMENTIN 875-875 MG PO
[2018-12-28 09:17] VITALS: BP 118/46
[2018-12-28 09:32] VITALS: BP 112/42
[2018-12-28 09:48] VITALS: BP 107/44
== END | disposition home or self-care (01) ==
LOC: SDC 12-22 08:45
DX: D12.5 Benign neoplasm of sigmoid colon (principal); D12.3 Benign neoplasm of transverse colon; K44.9 Diaphragmatic hernia without obstruction or gangrene; K62.3 Rectal prolapse; K21.0 Gastro-esophageal reflux disease with esophagitis; J44.9 Chronic obstructive pulmonary disease, unspecified; F41.9 Anxiety disorder, unspecified; I10 Essential (primary) hypertension; E11.9 Type 2 diabetes mellitus without complications; E78.5 Hyperlipidemia, unspecified; E66.01 Morbid (severe) obesity due to excess calories; F32.9 Major depressive disorder, single episode, unspecified; G47.30 Sleep apnea, unspecified; Z88.8 Allergy status to other drugs, medicaments and biological substances; Z88.1 Allergy status to other antibiotic agents; Z85.42 Personal history of malignant neoplasm of other parts of uterus; Z98.890 Other specified postprocedural states; Z90.49 Acquired absence of other specified parts of digestive tract; Z98.51 Tubal ligation status; Z87.891 Personal history of nicotine dependence; Z79.899 Other long term (current) drug therapy; Z87.01 Personal history of pneumonia (recurrent); Z91.048 Other nonmedicinal substance allergy status; Z68.44 Body mass index [BMI] 60.0-69.9, adult; Z80.0 Family history of malignant neoplasm of digestive organs; Z80.41 Family history of malignant neoplasm of ovary; Z82.49 Family history of ischemic heart disease and other diseases of the circulatory system; Z82.5 Family history of asthma and other chronic lower respiratory diseases

== ENCOUNTER → 2019-01-23 | Outpatient (CLI) | payer MEDICARE ==
[~2019-01-23] MED LIST changes: -AUGMENTIN 875-875 MG PO
== END | disposition home or self-care (01) ==
LOC: RAD 17:21
DX: J44.1 Chronic obstructive pulmonary disease with (acute) exacerbation (principal)

== ENCOUNTER → 2019-03-03 | Outpatient (CLI) | payer MEDICARE ==
[~2019-03-03] MED LIST changes: +AUGMENTIN 875-875 MG PO
== END | disposition home or self-care (01) ==
LOC: RAD 18:36
DX: M47.817 Spondylosis without myelopathy or radiculopathy, lumbosacral region (principal); M48.061 Spinal stenosis, lumbar region without neurogenic claudication; M47.814 Spondylosis without myelopathy or radiculopathy, thoracic region

== ENCOUNTER 2019-03-30 15:28 | Inpatient (IN) | payer MEDICARE ==
[~2019-03-30] VITALS: Ht 160 cm; Wt 156.0 kg
--- NOTE | ~2019-03-30 | CON ---
[place], [place] REPORT OF CONSULTATION NAME: TAMEKA DALTON [facility] #: [id number] UNIT #: [id number] ROOM: 504 DOCTOR: JOSE MINER MDFRAN BIRTHDATE: [birth year] DOS: 03/31/2019 PULMONARY CONSULTATION EVALUATION AND MANAGEMENT CONSULTATION REQUESTED BY: Dr. Celina Wallace. REASON FOR CONSULTATION: For assessment of acute exacerbation of COPD. HISTORY OF PRESENT ILLNESS: This is a 58-year-old white female patient who has been known to me. The patient has been admitted to the hospital under the care of Dr. Heron Wallace, from yesterday. The patient stayed in the Emergency Room several hours prior to admission to the hospital. She has been reporting symptoms of increased cough associated with sputum expectoration for the past couple of weeks. The cough has been noted intermittently productive and nonproductive other times. The patient stated after initial sputum production she has been noted dry cough and the patient started coughing again in the last 24 hours. The patient denies symptoms of chest pain or any acute hemoptysis. She has been reported symptoms of shortness of breath, which has been noted increased with wheezing and tightness in the chest. REVIEW OF SYSTEMS: CONSTITUTIONAL: Fatigue and tiredness reported without any symptoms of fever or chills. EYES: Denies any burning, redness, or tenderness. EARS, NOSE, THROAT SYMPTOMS: Denies sore throat, hoarseness, otalgia, postnasal drainage or epistaxis. CARDIOVASCULAR: Denies angina pain, edema, pain of the lower extremities. GASTROINTESTINAL: Denies dysphagia, nausea, vomiting, diarrhea, abdominal pain, hematemesis, melena, or hematochezia. SKIN: Denies abnormal lesions or rashes. CENTRAL NERVOUS SYSTEM: Denies dizziness, headache, diplopia, syncopal episodes. Remaining systems were reviewed with the patient, they were noted all negative. PAST MEDICAL HISTORY: 1. Known with history of chronic hypoxic respiratory failure, use of oxygen supplementation about 3 or 4 liters nasal cannula. 2. History of chronic obstructive pulmonary disease. 3. The patient with history of chronic morbid obesity as well. 4. History of permanent atrial fibrillation. 5. Congestive heart failure with preserved ejection fraction. 6. Gastroesophageal reflux. 7. History of uterine cancer. 8. Type 2 diabetes mellitus. 9. Hyperlipidemia. 10. Essential hypertension. PAST SURGICAL HISTORY: 1. . [place], [place] REPORT OF CONSULTATION [id number] UNIT #: [id number] ROOM: 504 DOCTOR: FRAN TERAN MD BIRTHDATE: [birth year] 2. Cholecystectomy. 3. D and C. 4. Hernia repair. SOCIAL HISTORY: She currently lives at home. The patient was noted tobacco use, started as a teenager, 2 packs of cigarettes per day that was discontinued in 2011. There was no history of alcohol use or illicit drugs. FAMILY HISTORY: The patient's father at the age of 7070 years old with complications of COPD. Mother with history of bronchial asthma, unknown. MEDICATIONS: From home were listed as albuterol sulfate, baclofen, Eliquis, Symbicort, vitamin D, Cardizem, Multaq, Lasix, gabapentin, DuoNeb, Prevacid, metformin, metoprolol succinate, Singulair, oxygen supplementation, potassium chloride, pravastatin and Carafate. DRUG ALLERGIES: Noted as allergy: 1. BACTRIM. 2. VICTOZA SHOTS. PHYSICAL EXAMINATION: GENERAL: This is a 58-year-old female patient who has been currently noted to be awake and alert, sitting on the bed this morning of assessment. Her height was recorded by the nursing staff, patient's current admission as height of 5 feet 3 inches, weight of 344 pounds, BMI 60.9. VITAL SIGNS: Within normal temperature, respiratory rate 16-20, heart rate 83-66, blood pressure 106/89-139/58. Pulse oxygen saturation recorded on 3 liters nasal cannula was 94% saturation at rest. HEENT: Chronic obesity. Head was atraumatic. Eyes nonicterus. CARDIOVASCULAR: S1, S2 audible. LUNGS: Noted diffuse reduction in the breath sounds in the lungs bilaterally. Wheezing was present. There were no crackles. ABDOMEN: Morbidly obese. Bowel sounds present without any tenderness. EXTREMITIES: Chronic changes. VISIBLE SKIN: No lesions or rashes. MUSCULOSKELETAL: Without acute deformities. CENTRAL NERVOUS SYSTEM: No focal deficit. Cranial nerves 2-12 intact. LABORATORY DATA: CMP done on 03/30/2019 noted normal BUN and creatinine and other electrolytes were normal. CBC that was done yesterday, WBC count 8.2, hemoglobin 10, platelet count 255,000, 4.6% eosinophils. CBC that was noted on 03/31/2019 hemoglobin of 9.8, WBC count normal, platelet count were normal. The PT/INR noted as normal this morning. The CMP: Glucose 257 today. Remaining CMP was normal. Chest x-ray, 2-view, which was done in the Emergency Room on admission was noted without any evidence of acute pulmonary infiltration with finding of congestive heart failure. IMPRESSION: 1. The patient will be currently admitted to the hospital noted with acute exacerbation of chronic obstructive pulmonary disease, eosinophilia, possibility [place], [place] REPORT OF CONSULTATION NAME: TAMEKA DALTON UNIT #: [id number] ROOM: 504 DOCTOR: JOSE MINER MD,FRAN BIRTHDATE: [birth year] of bronchial asthma will be considered as well. 2. Acute bacterial bronchitis was also suspected with progressive worsening symptoms in the last few days. 3. Chronic hypoxic respiratory failure. 4. History of atrial fibrillation. 5. Type 2 diabetes mellitus. The diabetes mellitus, noted uncontrolled. 6. Other multiple medical illnesses noted in the past history. PLAN OF MANAGEMENT: Order the arterial blood gas to assess for hypercapnia. Continue in the meantime other therapy, plan of management as in progress with the use of corticosteroids, bronchodilators and the antibiotics. Changes in the treatment will be recommended based on the progression of the illness. Supportive therapy. Titrate oxygen supplement, maintain pulse ox 92% or greater. Use of the BiPAP would be considered depending on the arterial blood gas if necessary. Collect the sputum for Gram stain and culture. Thanks for allowing me to participate in the care of this patient. FRAN GARCIA MD CM:CONSTR:REPORT OF CONSULTATION [id number] 03/31/19 1426 interface
--- NOTE | ~2019-03-30 | PR ---
[place], [place] PROGRESS NOTE NAME: [facility]TON [id number] UNIT #: [id number] ROOM: 501 DOCTOR: JOSE MINER MD,FRAN BIRTHDATE: [birth year] DOS: 04/01/2019 SUBJECTIVE: The patient noted comfortable at this time, resting in the bed this morning of assessment, has not been reported any ongoing acute new respiratory complaints with chest pain, fever or chills. Shortness of breath has been noted decreased significantly from yesterday. Coughing has been subsiding. Sputum expectoration was decreasing. No chest pain reported. OBJECTIVE: GENERAL: For this morning, sitting comfortably on the bed. VITAL SIGNS: Normal temperature, respiratory rate 18, heart rate 77, blood pressure 154/64 recorded. Pulse oxygen saturation on 3 liters nasal cannula 97% saturation. HEAD, EYES, EARS, NOSE, AND THROAT: Examination shows head was atraumatic. Eyes nonicterus. NECK: Supple. CARDIOVASCULAR SYSTEM: S1, S2 audible. LUNGS: Without any wheeze or crackles at the present time. Breaths are noted mildly diminished bilaterally. ABDOMEN: Soft, nontender. IMPRESSION: Resolving acute bronchitis with acute exacerbation of chronic obstructive pulmonary disease. Chronic obesity, which is noted morbid as well as obstructive sleep apnea disorder. PLAN OF TREATMENT: Continue current plan of management, await for the next 24 hours if the patient continued to do better. Consider possible home discharge. FRAN GARCIA MD CM:PNTRANS [id number] FRAN MINER MD 04/01/19 1359 interface
--- NOTE | ~2019-03-30 | PR ---
[place], [place] PROGRESS NOTE [id number] #: [id number] ROOM: 501 DOCTOR: JOSE MINER MD,FRAN BIRTHDATE: [birth year] DOS: 04/02/2019 SUBJECTIVE: The patient noted comfortable at this time, resting in the bed this morning of assessment. Continue to do well in the last 24 hours, further reduction and improvement in respiratory symptoms were noted. There was no coughing stated. The wheezing has improved. Shortness of breath is resolving. OBJECTIVE: VITAL SIGNS: For the patient this morning, normal temperature, respiratory rate 17, heart rate 70, blood pressure 155/55. The pulse oxygen saturation on 3 liters nasal cannula 94% saturation recorded. HEENT: Examination shows head was atraumatic. Eyes nonicterus. NECK: Supple. CARDIOVASCULAR: S1, S2 is audible. LUNGS: The patient without any wheeze or crackle. Breaths are noted mildly diminished bilaterally. ABDOMEN: Soft, nontender. Bowel sounds present. EXTREMITIES: The patient was noted without any acute edema. MUSCULOSKELETAL: Noted without any acute deformities. CENTRAL NERVOUS SYSTEM: Noted intact. IMPRESSION: 1. Stable respiratory status noted at present time with progressive resolution of acute exacerbation of chronic obstructive pulmonary disease. 2. Obstructive sleep apnea disorder. 3. Chronic obesity. PLAN OF MANAGEMENT: No changes in plan of management at this time will be necessary. Discharge planning could be started for home discharge whenever desired. FRAN GARCIA MD CM:PNTRANS [id number] FRAN MINER MD 04/02/191944 interface
[2019-03-30 15:30] VITALS: BP 120/53
[2019-03-30 16:16] LABS: BILIRUBIN 2+ (NEGATIVE); BLOOD NEGATIVE (NEGATIVE); CLARITY CLOUDY (CLEAR); COLOR YELLOW (YELLOW); GLUCOSE NEGATIVE (NEGATIVE); KETONE TRACE (NEGATIVE); LEUKO ESTERASE TRACE (NEGATIVE); NITRITE NEGATIVE (NEGATIVE); PH 5.5 (5.0-9.0); SPECIFIC GRAVITY >= 1.030 (1.005-1.030); UROBILINOGEN 0.2 E.U./dl (0.2-1.0)
[2019-03-30 16:27] LABS: BACTERIA 1+
[2019-03-30 16:28] LABS: HYALINE CAST 0-2
[2019-03-30 17:24] LABS: ALBUMIN 3.1 gm/dl (3.1-4.5); ALKALINE PHOSPHATASE 103 U/L (45-117); BUN 12 mg/dl (7-24); CHLORIDE 104 mmol/L (98-107); CREATININE 0.89 mg/dL (0.55-1.02); SGOT/AST 8 IU/L (3-35); SGPT/ALT 16 U/L (12-78); SODIUM 136 mmol/L (136-145); TOTAL PROTEIN 6.7 gm/dL (6.4-8.2)
[2019-03-30 17:37] LABS: BASO # 0.1 10*3/uL (0.0-0.1); BASO % 0.9 % (0.0-1.0); EOS # 0.4 10*3/uL (0.0-0.4); EOS % 4.6 % (1.0-4.0); HEMATOCRIT 32.8 % (37.0-47.0); LYMPH # 1.5 10*3/uL (1.3-4.4); LYMPH % 17.8 % (27.0-41.0); MEAN CELL VOLUME 91.4 fl (81.0-99.0); MEAN CORPUSCULAR HGB 27.9 pg (27.0-31.0); MEAN CORPUSCULAR HGB CONC 30.5 g/dl (33.0-37.0); MEAN PLATELET VOLUME 10.8 fl (9.6-12.3); MONO # 0.5 10*3/uL (0.1-1.0); MONO % 5.8 % (3.0-9.0); NEUT # 5.8 10*3/uL (2.3-7.9); NEUT % 70.2 % (47.0-73.0); PLATELET COUNT AUTOMATED 255 10*3/uL (130-400); RED BLOOD COUNT 3.59 10*6/uL (4.10-5.10); RED CELL DISTRI WIDTH 15.8 % (0-14.5); WHITE BLOOD COUNT 8.2 10*3/uL (4.8-10.8)
[2019-03-30 18:02] VITALS: BP 106/89
--- NOTE | 2019-03-30 20:20 | NUR ---
THIS NURSE CALLED THE NURSING SUPERVISIOR AND TOLD HER THE PATIENT IS REQUESTING AN INPATIENT BED TO SLEEP IN FOR THE EVENING. SHE SAID SHE WOULD SEE WHAT SHE COULD DO. VERBAL UNDERSTANDING WAS NOTED FROM THE PATIENT
--- NOTE | 2019-03-30 20:24 | NUR ---
THE PT WAS FEELING OVERHEATED. SHE WAS GIVEN A FAN TO USE WHILE IN THE ED
[2019-03-31 00:21] VITALS: BP 112/89
[2019-03-31 03:49] VITALS: BP 140/69
[2019-03-31 06:33] LABS: HEMOGLOBIN 9.8 g/dl (12.0-16.0); MEAN CELL VOLUME 89.9 fl (81.0-99.0); MEAN CORPUSCULAR HGB 27.5 pg (27.0-31.0); MEAN CORPUSCULAR HGB CONC 30.6 g/dl (33.0-37.0); MEAN PLATELET VOLUME 10.6 fl (9.6-12.3); PLATELET COUNT AUTOMATED 236 10*3/uL (130-400); RED BLOOD COUNT 3.56 10*6/uL (4.10-5.10); RED CELL DISTRI WIDTH 15.4 % (0-14.5)
[2019-03-31 07:04] LABS: OVALOCYTES FEW; PLATELET SUFFICIENCY NORMAL (NORMAL); TOTAL CELLS COUNTED 100 #CELLS
[2019-03-31 07:04] LABS: BUN 11 mg/dl (7-24); CHLORIDE 105 mmol/L (98-107); CHOLESTEROL 116 mg/dL (<200); CREATININE 0.91 mg/dL (0.55-1.02); PHOSPHOROUS 2.7 mg/dL (2.5-4.9); SGOT/AST 8 IU/L (3-35); SGPT/ALT 14 U/L (12-78); SODIUM 136 mmol/L (136-145); TRIGLYCERIDES 82 mg/dl (<150); VLDL CHOLESTEROL 16 mg/dL (6-40)
--- NOTE | 2019-03-31 07:10 | NUR ---
PATIENT REPORT FROM JOHN VALENTINE AT THIS TIME. PATIENT LAYING IN BED RESTING PEACEFULLY. APPEARS IN NO DISTRESS. WILL CONTINUE TO MONITOR.
[2019-03-31 07:11] LABS: ALKALINE PHOSPHATASE 103 U/L (45-117); FREE T4 1.07 ng/dl (0.76-1.46); HDL CHOLESTEROL 55 mg/dl (40-60); LDL CHOLESTEROL 45 mg/dL (9-159); THYROID STIM HORMONE (HS) 0.806 uIU/ml (0.358-4.75); TOTAL PROTEIN 6.8 gm/dL (6.4-8.2)
[2019-03-31 08:17] LABS: VITAMIN D, 25-HYDROXY 24.5 ng/mL (30-100)
--- NOTE | 2019-03-31 08:26 | NUR ---
PATIENT ASSIGNED ROOM NUMBER. ADVISED NURSE TAL VALENTINE THAT PATIENT IS READY TO BE BROUGHT UP. MISSILEMAN TAMMY STATES SHE IS GOING TO FIND HELP FOR MOVING THE INPATIENT HOSPITAL BED UPSTAIRS WITH THIS NURSE.
--- NOTE | 2019-03-31 08:30 | NUR ---
NURSE TO NURSE GIVEN TO TAL VALENTINE AT THIS TIME. NO CHANGE IN PATIENT STATUS.
[2019-03-31 08:45] VITALS: BP 139/58
--- NOTE | 2019-03-31 08:47 | NUR ---
[place] 58, admitted to 5E, under the services of SHONA Mtz MD with a diagnosis of DYSPNEA. Chief complaint is SOB, PRODUCTIVE COUGH. Patient arrived via bed from ER. Monitor applied. Initial assessment completed. Vital signs taken and recorded. SHONA MTZ MD notified of admission to the unit. Orders received. See assessment for past medical history, medications and allergies. Patient and/or family oriented to unit. [facility]. visitation policy reviewed. Clothing/patient valuable form completed. TAL MEDINA.
--- NOTE | 2019-03-31 08:47 | NUR ---
PT ALREADY RECEIVED FLU VACCINE.
--- NOTE | 2019-03-31 08:51 | NUR ---
IN TO SEE PATIENT.
--- NOTE | 2019-03-31 09:19 | NUR ---
[facility] CALLED AT THIS TIME REGARDING MED LIST. WAITING FOR FAXED LIST OF HOME MEDICATIONS.
[2019-03-31] MEDS ORDERED: CARAFATE1 G1 PO (09:29)
[2019-03-31] MEDS ORDERED: METFORMIN HYDR750 MG PO (09:37)
[2019-03-31] MEDS ORDERED: CEFUROXIME AXE500 MG PO (09:50)
--- NOTE | 2019-03-31 11:46 | NUR ---
PT MEDICATED WITH PO PERCOCET PER PRN ORDER FOR C/O GENERALIZED DISCOMFORT. CHRONIC PAIN PER PT. WILL MONITOR EFFECTIVENESS.
[2019-03-31 12:00] VITALS: BP 160/65
--- NOTE | 2019-03-31 12:07 | NUR ---
FLUTTERS ARE NOT AVAILABLE AT THIS TIME. WE WILL GIVE AND INSTRUCT WESLEY.
--- NOTE | 2019-03-31 12:08 | NUR ---
Chief Information Security Officer in to talk to patient. Patient states lives at HOME with SON AND BROTHER IN LAW. There are OUTSIDE steps in the home. Physician: EDUARDO Pharmacy: [facility] Home health services: NO Patient's level of ADLs: MINIMAL ASSIST Patient has working utilities: YES DME: [facility] Follow-up physician's appointment after d/c: PREFERS TO MAKE OWN ON DISCHARGE Does patient want to access PORTAL?: NO Discharge plan PT LIVES AT HOME WITH AND OTHERS. STATES HER HELPS HER WHEN NEEDED. SHE HAS OXYGEN, PORTABLE TANKS, BIPAP AND HOSPITAL BED AT HOME. STATES SHE NEEDS SOMEONE TO HELP CLEAN HER HOUSE. EXPLAINED THAT IS PRIVATE PAY BUT DID GIVE HER NUMBER FOR [facility] TO CALL AND TALK TO THEM ABOUT COST. WILL CONTINUE TO FOLLOW. PT STATES SHE WILL HAVE A RIDE HOME ON DISCHARGE.. BIANCA BULLARD
--- NOTE | 2019-03-31 13:00 | NUR ---
EARLIER PERCOCET EFFECTIVE PER PT.
[2019-03-31 13:31] LABS: ABG BASE EXCESS -0.6 mmol/L (-2.0-2.0); ABG HCO3 23.4 mmol/l (22-26); ARTERIAL BLOOD GAS PCO2 38.3 mmHg (35-45); ARTERIAL BLOOD GAS PH 7.403 (7.35-7.45); ARTERIAL BLOOD GAS PO2 80.4 mmHg (80-90)
[2019-03-31 16:00] VITALS: BP 149/61
--- NOTE | 2019-03-31 18:23 | NUR ---
PHARMACY CALLED REGARDING PHARMACY ORDER.
--- NOTE | 2019-03-31 18:35 | NUR ---
PT MEDICATED WITH PO PERCOCET PER PRN ORDER FOR C/O GENERALIZED PAIN/DISCOMFORT. WILL MONITOR EFFECTIVENESS.
[2019-03-31 20:00] VITALS: BP 128/66
--- NOTE | 2019-03-31 21:50 | NUR ---
PRN RESTORIL ADMINISTERED PRESCRIBED.
[2019-04-01] VITALS: BP 134/66
--- NOTE | 2019-04-01 00:43 | NUR ---
24 HOUR CHART CHECK COMPLETE.
[2019-04-01 06:44] LABS: BASO % 0.1 % (0.0-1.0); HEMATOCRIT 33.8 % (37.0-47.0); HEMOGLOBIN 10.3 g/dl (12.0-16.0); LYMPH # 0.7 10*3/uL (1.3-4.4); LYMPH % 7.7 % (27.0-41.0); MEAN CELL VOLUME 90.4 fl (81.0-99.0); MEAN CORPUSCULAR HGB 27.5 pg (27.0-31.0); MEAN CORPUSCULAR HGB CONC 30.5 g/dl (33.0-37.0); MEAN PLATELET VOLUME 10.9 fl (9.6-12.3); MONO # 0.4 10*3/uL (0.1-1.0); MONO % 4.4 % (3.0-9.0); NEUT # 7.2 10*3/uL (2.3-7.9); NEUT % 86.3 % (47.0-73.0); PLATELET COUNT AUTOMATED 274 10*3/uL (130-400); RED BLOOD COUNT 3.74 10*6/uL (4.10-5.10); RED CELL DISTRI WIDTH 15.4 % (0-14.5); WHITE BLOOD COUNT 8.4 10*3/uL (4.8-10.8)
[2019-04-01 06:56] LABS: BUN 8 mg/dl (7-24); CHLORIDE 108 mmol/L (98-107); CREATININE 0.83 mg/dL (0.55-1.02); POTASSIUM 4.2 mmol/L (3.5-5.1); SODIUM 139 mmol/L (136-145)
[2019-04-01 08:00] VITALS: BP 154/64
--- NOTE | 2019-04-01 09:01 | NUR ---
PT MEDICATED WITH PO PERCOCET PER PRN ORDER FOR C/O BACK PAIN. RATES PAIN 03/02. CHRONIC PAIN PER PT. WILL MONITOR EFFECTIVENESS. VSS.
--- NOTE | 2019-04-01 10:25 | NUR ---
PERCOCET RELIEVING PAIN PER PT. WILL CONTINUE TO MONITOR.
[2019-04-01 12:00] VITALS: BP 143/56
--- NOTE | 2019-04-01 12:34 | NUR ---
PT CONTINUES TO DENY NEEDS AT HOME AFTER DISCHARGE. WILL CONTINUE TO FOLLOW.
--- NOTE | 2019-04-01 13:59 | NUR ---
Occupational Therapy evaluation completed on 5 with full eval to follow. Precautions include fall risk,obesity, O2 use continuously, anxiety,SOB with min exertion,moderate complexity level 40478 via chart review, testing and evaluation. Recommend OT per pOC and home with home health SN, OT,PT. Thank you. Pt in agreement with this plan. Vivian Garcia OTR/l
--- NOTE | 2019-04-01 13:59 | NUR ---
PHYSICAL THERAPY Physical therapy evaluation completed, 5E. Full details and evaluation to follow. Moderate complexity determined after evaluation and chart review, [id number]. PT will work on balance, strength, endurance, gait, transfers, bed mobility. Recommending home health at discharge. Thank you. Rosalie Yuan, PT, DPT
--- NOTE | 2019-04-01 14:58 | NUR ---
PT IS NOW ASKING FOR HOME HEALTH AFTER DISCHARGE. PROVIDED WITH A LIST OF ANGENCYS AND [facility].
--- NOTE | 2019-04-01 15:13 | NUR ---
REFERRAL FOR HOME HEALTH FAXED TO [facility].
[2019-04-01 16:00] VITALS: BP 149/48
--- NOTE | 2019-04-01 16:30 | NUR ---
PT MEDICATED WITH PO PERCOCET PER PRN ORDER FOR C/O BACK PAIN. CHRONIC PER PT. WILL MONITOR EFFECTIVENESS.
--- NOTE | 2019-04-01 17:30 | NUR ---
PAIN MEDICATION EFFECTIVE PER PT.
[2019-04-01 20:00] VITALS: BP 160/60
--- NOTE | 2019-04-01 23:00 | NUR ---
RESTORIL AND PERCOCET GIVEN FOR INSOMNIA AND PAIN. SEE MAR.
[2019-04-02] VITALS: BP 160/66
--- NOTE | 2019-04-02 | NUR ---
RESTORIL AND PERCOCET EFFECTIVE FOR INSOMNIA AND PAIN.
[2019-04-02 08:00] VITALS: BP 155/55
[2019-04-02] MEDS ORDERED: PREDNISONE10 MG PO (10:52)
[2019-04-02] MEDS ORDERED: DOXYCYCLINE100 MG PO (11:07)
--- NOTE | 2019-04-02 11:16 | NUR ---
PT WILL RETURN HOME ON DISCHARGE WITH [facility].
--- NOTE | 2019-04-02 13:20 | NUR ---
Discharge instructions reviewed with patient/family. Patient receptive and verbalizes understanding. Follow-up care arranged. Written instructions given to patient/family. CORI RUFFIN
== END 2019-04-02 13:20 | disposition home health service (06) | DRG 193 ==
LOC: ED 15:28 → EDHOLD 16:24 → 5E 16:24
PROVIDERS: Internal Medicine; Internal Medicine Critical Care Medicine; Physician Assistant; ADMIT Internal Medicine
DX: J18.9 Pneumonia, unspecified organism (principal); J96.21 Acute and chronic respiratory failure with hypoxia; J44.1 Chronic obstructive pulmonary disease with (acute) exacerbation; J44.0 Chronic obstructive pulmonary disease with (acute) lower respiratory infection; E87.2 Acidosis; I48.21 Permanent atrial fibrillation; D68.69 Other thrombophilia; Z68.44 Body mass index [BMI] 60.0-69.9, adult; I50.32 Chronic diastolic (congestive) heart failure; I11.0 Hypertensive heart disease with heart failure; E11.65 Type 2 diabetes mellitus with hyperglycemia; D64.9 Anemia, unspecified; J20.8 Acute bronchitis due to other specified organisms; G47.33 Obstructive sleep apnea (adult) (pediatric); E55.9 Vitamin D deficiency, unspecified; R82.2 Biliuria; K21.9 Gastro-esophageal reflux disease without esophagitis; E78.5 Hyperlipidemia, unspecified; K44.9 Diaphragmatic hernia without obstruction or gangrene; E66.01 Morbid (severe) obesity due to excess calories; Z99.81 Dependence on supplemental oxygen; Z88.8 Allergy status to other drugs, medicaments and biological substances; Z79.84 Long term (current) use of oral hypoglycemic drugs; Z79.899 Other long term (current) drug therapy; Z90.49 Acquired absence of other specified parts of digestive tract; Z98.891 History of uterine scar from previous surgery; Z87.891 Personal history of nicotine dependence; Z82.49 Family history of ischemic heart disease and other diseases of the circulatory system; Z82.5 Family history of asthma and other chronic lower respiratory diseases; Z85.59 Personal history of malignant neoplasm of other urinary tract organ

== ENCOUNTER 2019-04-04 23:30 | Inpatient (IN) | payer MEDICARE ==
[~2019-04-04] VITALS: Ht 160 cm; Wt 151.1 kg
--- NOTE | ~2019-04-04 | CON ---
[place], [place] REPORT OF CONSULTATION NAME: [facility]TON [facility] [id number] UNIT #: [id number] ROOM: 531 DOCTOR: FRAN TERAN MD BIRTHDATE: [birth year] DOS: 04/05/2019 PULMONARY CONSULTATION, EVALUATION, AND MANAGEMENT REASON FOR CONSULTATION: Assess the patient for abnormal respiratory symptoms. HISTORY OF PRESENT ILLNESS: This is a 58-year-old white female patient who has been recently admitted to the hospital and discharged home on 04/02/2019. She remains in the hospital for 3 days and being treated for acute exacerbation of COPD. The patient has been discharged home on oral antibiotic, tapering prednisone. She was taking her respiratory medication as prescribed. She started having significant increased shortness of breath that occurred at home. The symptoms were noted severely worse and she came into the hospital about midnight last night. She had been assessed and noted symptoms of shortness of breath, also finding considered for congestive heart failure with a chest x-ray. She has been admitted to the hospital for further care. She does have symptoms of shortness of breath occurring with minimal exertion, inability to keep the oxygen saturation, usual home oxygen supplementation in the home setting that she may use of 3 liters nasal cannula. She was complaining of some nonproductive cough as well. Denies symptoms of chest pain. Symptoms were not associated with significant wheezing as stated by the patient. She has been noted with edema of the lower extremity, stating she drinks a lot of water at the home settings. She has been assessed in the Emergency Room, noted with elevated blood pressure and the chest x-ray suggestive of bilateral pleural fluid with finding of congestive heart failure. She has been admitted to the hospital for further care. This morning as the patient was seen, she has been using the oxygen supplementation with the nasal cannula. REVIEW OF SYSTEMS: CONSTITUTIONAL SYMPTOMS: Fatigue and tiredness noted without any symptoms of fever or chills. EYES: Denies burning, redness, or tenderness. EARS, NOSE, THROAT SYMPTOMS: No sore throat, hoarseness, otalgia, postnasal drainage or epistaxis. CARDIOVASCULAR: Denies anginal pain. Noted edema of the lower extremity. There were no symptoms of palpitations. GASTROINTESTINAL SYMPTOMS: Denies dysphagia, nausea, vomiting, diarrhea, abdominal pain, hematemesis, melena, hematochezia, or any abnormal weight loss history. CENTRAL NERVOUS SYSTEM: No dizziness, headache, diplopia or syncopal episodes. Remaining systems were reviewed. They were noted all negative. Past medical history, surgical history, social history, and family history were reviewed with since my consultation of 03/31/2019, remains unchanged. The details were available to in the consultation document, which was done on 03/31/2019 in the [employer] system. MEDICATIONS: Medications which were listed at the time of admission by the nursing staff this morning recorded as Ventolin HFA inhaler, Symbicort, DuoNeb, [place], [place] REPORT OF CONSULTATION NAME: TAMEKA DALTON UNIT #: [id number] ROOM: 531 DOCTOR: JOSE MINER MD,FRAN BIRTHDATE: [birth year] oxygen supplementation, Eliquis, baclofen, Ceftin, recently prescribed upon discharge Cardizem, Multaq, Lasix, Neurontin, Prevacid, metformin, metoprolol succinate, Singulair, Percocet, potassium chloride, Pravachol, tapering dose of prednisone, Carafate, and some other p.r.n. meds. DRUG ALLERGIES: 1. BACTRIM. 2. VICTOZA SHOTS. PHYSICAL EXAMINATION: GENERAL: This is a 58-year-old female patient who has been currently sitting on the bed upright without any distress. Height of 5 feet 3 inches, weight of 241 pounds, BMI 60.4. VITAL SIGNS: For the patient recorded as a normal temperature since admission last 12 hours. The respiratory rate was noted 28 on admission, currently 18, heart rate 66-88, blood pressure ____ on admission and this morning at ____, the patient was still noted 180/58. Pulse oxygen saturation on 3-4 liters nasal cannula 94% - 98% saturation. HEENT: Examination shows chronic obesity. Head was atraumatic. Eyes nonicterus. NECK: Supple. Decreased posterior pharyngeal space, high tongue base and crowding of soft tissue structures. CARDIOVASCULAR: S1, S2 audible. LUNGS: The patient was noted with scattered crackles of the lung and occasional wheezing. ABDOMEN: Soft. Chronic massive obesity. EXTREMITIES: There was a 2+ pitting edema. VISIBLE SKIN: No lesions or rashes. CENTRAL NERVOUS SYSTEM: The patient was noted intact. There were no focal neurologic deficits. MUSCULOSKELETAL: Without acute deformities. LABORATORY DATA: CMP that was done on 04/05/2019; BUN 19, creatinine 1.11, glucose 374. ProBNP was 742, mildly elevated. Lactic acid was 4.6. CBC on 04/05/2019; WBC count 12.9, hemoglobin 11.2, platelet count of 340,000. Ketones in the urine were noted negative. Lactic acid noted variably elevated. PT/INR was done this morning as normal. The chest x-ray shows small bilateral pleural fluid with finding of congestive heart failure, fluid overload. IMPRESSION: 1. The patient will be currently admitted to the hospital with acute congestive heart failure with preserved ejection fraction. 2. Peripheral edema. 3. Symptoms of shortness of breath. 4. Resolving acute exacerbation of chronic obstructive pulmonary disease from last admission. 5. Morbid obesity. 6. History of chronic obstructive pulmonary disease as well as previously known with obstructive sleep apnea disorder as well. 7. History of atrial fibrillation appeared to be in controlled range at this [place], [place] REPORT OF CONSULTATION NAME: TAMEKA DALTON UNIT #: [id number] ROOM: 531 DOCTOR: JOSE MINER MD,[facility] BIRTHDATE: [birth year] time on this admission. PLAN OF TREATMENT: Continue diuretics as Lasix. Obtain a PA lateral chest x-ray for more clear assessment of the current pulmonary abnormalities. The patient will be resumed on the tapering dose of prednisone, would not require any use of high dose of Solu-Medrol, bronchodilators. Use of CPAP/BiPAP from home setting was advised at nighttime p.r.n. during the day. Also, obtain arterial blood gas as well to assess the patient's ventilatory status. Other plan of therapy, care plan management to be continued based on the progression of the illness. Supportive care, plan of management and therapy, plan of care. Additional treatment changes will be ordered based on the progression of the illness. Titrate oxygen supplementation, maintain pulse ox 92% or greater. DVT prophylaxis in the form of Eliquis will be continued, need to be resumed from her home medication, has not been ordered on this admission. FRAN GARCIA MD CM:CONSTR:REPORT OF CONSULTATION [id number] 04/05/19 1328 interface
--- NOTE | ~2019-04-04 | PR ---
[place], [place] PROGRESS NOTE NAME: TAMEKA DALTON UNIT #: [id number] ROOM: 531 DOCTOR: JOSE MINER MD,FRAN BIRTHDATE: [birth year] DOS: 04/08/2019 SUBJECTIVE: She continued to do well. Reduction in respiratory symptom, improvement in coughing, shortness of breath, and others. Denies chest pain, fever or chills. OBJECTIVE: VITAL SIGNS: This morning as the patient was sitting comfortably on the bed without any distress. Normal temperature, respiratory rate 18/71, heart rate 74, blood pressure 148/56 recorded at midnight. Pulse oxygen saturation recorded as 100% on 3 liters nasal cannula. HEENT: Examination shows head was atraumatic. Eyes nonicterus. NECK: Supple. CARDIOVASCULAR: S1, S2 is audible. LUNGS: Noted without any wheeze or crackles. ABDOMEN: Soft, nontender. Bowel sounds present. EXTREMITIES: Noted without any acute edema. MUSCULOSKELETAL: Noted without any acute deformities. IMPRESSION: 1. The patient who has been currently noted with resolving acute exacerbation of chronic obstructive pulmonary disease with acute bronchitis, congestive heart failure with preserved ejection fraction as well. 2. Obstructive sleep apnea disorder and chronic hypoxic respiratory failure. PLAN OF MANAGEMENT: Discharge planning could be started for home discharge on oral medications. Completion of tapering prednisone as ordered is in progress. Fluid restriction, outpatient followup to be done as an outpatient for pulmonary disease as well. The patient has been only seen for obstructive sleep apnea disorder, recently in the office. FRAN GARCIA MD CM:PNTRANS [id number] FRAN MINER MD 04/08/19 1433 interface
--- NOTE | ~2019-04-04 | EKG ---
[place], [place] ELECTROCARDIOGRAM REPORT NAME: TAMEKA DALTON UNIT #: [id number] ROOM: 531 DOCTOR: DEVAN DRAFT REPORT BIRTHDATE: [birth year] [facility] Test Date: 2019-04-05 Test Time: 00:05:20 Pat Name: TAMEKA DALTON Department: Room: 531 Gender: F Tour Consultant: Jennifer Jon : 1960 Requested By: KENDRA ESCALANTE Order Number: [id number] Reading MD: Darwin Woodall MD Measurements Intervals [place] Rate: 73 P: 41 NE: 140 QRS: 32 QRSD: 107 T: 37 QT: 420 QTc: 463 Interpretive Statements Sinus rhythm Low voltage, precordial leads Electronically Signed On 04-05-2019 12:55:41 PDT by Darwin Woodall MD CM:EKGRPT:ELECTROCARDIOGRAM REPORT [id number] KENDRA GONZALEZ DRAFT REPORT KENDRA ESCALANTE DO
--- NOTE | ~2019-04-04 | PR ---
[place], [place] PROGRESS NOTE [id number] UN[facility] #: [id number] ROOM: 531 DOCTOR: JOSE MINER MD,FRAN BIRTHDATE: [birth year] DOS: 04/07/2019 PULMONARY PROGRESS NOTE SUBJECTIVE: The patient stated with a small amount of sputum expectoration in the last 24 hours appeared to be clear. Denies symptoms of fever or chills. Shortness of breath improving. Denies symptoms of chest pain or any acute hemoptysis. Denies any pain of the lower extremities or any acute edema. OBJECTIVE: GENERAL: She was comfortably resting in the bed this morning of assessment. VITAL SIGNS: Normal temperature, respiratory rate 17, heart rate of 59, blood pressure 140/68. Pulse oxygen saturation on 3 liters nasal cannula 96% saturation. HEENT: Examination shows chronic obesity. Head was atraumatic. Eyes nonicterus. NECK: Supple. CARDIOVASCULAR: S1, S2 audible. LUNGS: The patient with moderate decreased breath sounds without any wheezing. There were no crackles. ABDOMEN: Soft and obese. EXTREMITIES: Chronic obesity changes. There was no edema. IMPRESSION: Stable respiratory status, resolving acute congestive heart failure, preserved ejection fraction with resolving acute exacerbation of chronic obstructive pulmonary disease. PLAN OF MANAGEMENT: No changes in the plan of care at this time. Continue the patient current therapy as in progress. Usual care, other supportive plan of management and treatments. FRAN GARCIA MD CM:PNTRANS [id number] FRAN MINER MD 04/07/19 1521 interface
--- NOTE | ~2019-04-04 | PR ---
[place], [place] PROGRESS NOTE NAME: TAMEKA DALTON [facility] #: [id number] UNIT #: [id number] ROOM: 531 DOCTOR: JOSE MINER MD,FRAN BIRTHDATE: [birth year] DOS: 04/06/2019 SUBJECTIVE: She has been noted comfortable at this time, reduction of the respiratory symptom noted. She has been noted reduction in symptoms of shortness of breath. Coughing has been noted decreased. There were no symptoms of chest pain. Edema of lower extremity has been also decreased. The patient denies symptoms of fever or chills. Denies symptoms of hemoptysis, headache, nausea, vomiting or diarrhea. Denies symptoms of abdominal pain. Remaining systems reviewed were noted all negative. OBJECTIVE: VITAL SIGNS: Which are recorded normal temperature, respiratory rate 16, heart rate of 56, blood pressure 140/60 recorded. Intake recorded as 930, input 1200, negative 270 mL in the last 24 hours. The pulse oxygen saturation on 4 liters nasal cannula 94% saturation. HEENT: Examination shows head was atraumatic. Eyes nonicterus. NECK: Supple. CARDIOVASCULAR: S1, S2 is audible. LUNGS: The patient was noted with decreased breath sounds in the lungs bilaterally. There were no wheezing heard. There were no crackles. ABDOMEN: Soft, obese. EXTREMITIES: The patient noted without any much edema today. Chronic obesity with findings were noted. MUSCULOSKELETAL: Without any acute deformity. CENTRAL NERVOUS SYSTEM: The patient was noted essentially intact. LABORATORY DATA: CMP that was done this morning, glucose 121, BUN and creatinine was normal. Potassium 3.3. The CBC that was done this morning was noted. WBC count 12.4. Hemoglobin 10.6, platelet count of 304,000. The differential noted 23% lymphocytes. Chest x-ray that was done yesterday noted improvement in aeration of the lung at this time. The ____ limited to some extent because of the current obesity. However, there were no significant pleural fluid was noted. IMPRESSION: 1. The patient who has been noted with resolving congestive heart failure with preserved ejection fraction. 2. The patient with resolving chronic obstructive pulmonary disease. 3. Chronic hypoxic respiratory failure. 4. The patient with chronic morbid obesity. PLAN OF MANAGEMENT: No changes in plan of care at this time, the patient is already showing improvement in the respiratory status. Continuation of other therapy, plan of management to other treatment and care as in progress. Usual care, supportive therapy, plan of management. Bronchodilators to be continued. [place], [place] PROGRESS NOTE NAME: TAMEKA DALTON [place] UNIT #: [id number] ROOM: 531 DOCTOR: FRAN TERAN MD BIRTHDATE: [birth year] FRAN GARCIA MD CM:PNTRANS [id number] FRAN MINER MD 04/06/19 1508 interface
[2019-04-04 23:30] VITALS: BP 188/90
[~2019-04-04 23:30] MED LIST changes: +CEFUROXIME AXE500 MG PO; +METFORMIN HYDR750 MG PO
[2019-04-05] VITALS (8 sets, daily range): BP systolic 120–180; BP diastolic 58–76
[2019-04-05 00:12] LABS: HEMATOCRIT 36.3 % (37.0-47.0); HEMOGLOBIN 11.2 g/dl (12.0-16.0); MEAN CELL VOLUME 89.2 fl (81.0-99.0); MEAN CORPUSCULAR HGB 27.5 pg (27.0-31.0); MEAN CORPUSCULAR HGB CONC 30.9 g/dl (33.0-37.0); MEAN PLATELET VOLUME 10.3 fl (9.6-12.3); PLATELET COUNT AUTOMATED 340 10*3/uL (130-400); RED BLOOD COUNT 4.07 10*6/uL (4.10-5.10); RED CELL DISTRI WIDTH 14.9 % (0-14.5); WHITE BLOOD COUNT 12.9 10*3/uL (4.8-10.8)
[2019-04-05 00:27] LABS: ALBUMIN 3.4 gm/dl (3.1-4.5); ALKALINE PHOSPHATASE 134 U/L (45-117); BUN 19 mg/dl (7-24); CHLORIDE 100 mmol/L (98-107); CREATININE 1.11 mg/dL (0.55-1.02); POTASSIUM 3.6 mmol/L (3.5-5.1); SGOT/AST 25 IU/L (3-35); SGPT/ALT 30 U/L (12-78); SODIUM 137 mmol/L (136-145); TOTAL PROTEIN 7.1 gm/dL (6.4-8.2)
[2019-04-05 00:32] LABS: TROPONIN I < 0.015 ng/ml (<0.045)
[2019-04-05 00:39] LABS: PLATELET SUFFICIENCY NORMAL (NORMAL); TOTAL CELLS COUNTED 100 #CELLS
--- NOTE | 2019-04-05 02:03 | NUR ---
A 58, admitted to , under the services of SHONA Mtz MD with a diagnosis of CHF. Chief complaint is SHORTNESS OF BREATH. Patient arrived via stretcher from ER. Monitor applied. Initial assessment completed. Vital signs taken and recorded. SHONA MTZ MD notified of admission to the unit. Orders received. See assessment for past medical history, medications and allergies. Patient and/or family oriented to unit. [facility] visitation policy reviewed. Clothing/patient valuable form completed. CHUCK SIMON
[2019-04-05] MEDS ORDERED: DOXYCYCLINE100 M3 PO (02:29)
--- NOTE | 2019-04-05 02:48 | NUR ---
ATTEMPTED TO CALL DR CALRK REGARDING CRITICAL LAB VALUE AND ADMISSION ORDERS. NO ANSWER AT THIS TIME.
--- NOTE | 2019-04-05 03:27 | NUR ---
ATTEMPTED TO CALL DR CLARK FOR A SECOND TIME. NO ANSWER
--- NOTE | 2019-04-05 04:17 | NUR ---
SPOKE WITH DR CLARK. ORDERS TAKEN
--- NOTE | 2019-04-05 05:02 | NUR ---
DR CLARK AWARE OF CRITICAL LACTIC ACID
--- NOTE | 2019-04-05 07:25 | NUR ---
ARRIVED ON SHIFT, BEDSIDE REPORT RECEIVED, WHITE BOARD UPDATED, NO NEEDS VOICED AT THIS TIME.
--- NOTE | 2019-04-05 09:02 | NUR ---
Nursing screen received and chart reviewed. Patient's chief complaint is shortness of breath. Patient has a PMH including CHF, COPD, emphysema, and HTN. If patient has a decline in ADLs or functional mobility/transfers, please send OT orders. Thank you. Sis Franoc, OTR/L
[2019-04-05 10:36] LABS: ABG BASE EXCESS 9.5 mmol/L (-2.0-2.0); ABG O2 SATURATION 98.6 % (95-97); ARTERIAL BLOOD GAS PCO2 46.1 mmHg (35-45); ARTERIAL BLOOD GAS PH 7.479 (7.35-7.45); ARTERIAL BLOOD GAS PO2 89.7 mmHg (80-90)
--- NOTE | 2019-04-05 12:00 | NUR ---
Principal Software Architect in to talk to patient. Patient states lives at home with her , son, and [id number]. There are 17 steps in the home. Physician: Dr. Heron Wallace Pharmacy: [facility] Home health services: currently has [facility] and would like to resume those services upon discharge Patient's level of ADLs: MINIMAL ASSIST Patient has working utilities: yes DME: walker, hospital bed, O2 @ 3L nc, nebulizer, bipap, portable O2 tanks, O2 supplier [facility] Follow-up physician's appointment after d/c: she prefers to make her own follow up appt after discharge Does patient want to access PORTAL?: no Discharge plan discussed with patient. She lives at home with her , son, and [id number]. She needs minimal assistance with her ADLs and ambulates with a walker. She would like to see about getting a new hospital mattress but she doesn't know the name of the company. She states it was a company in [place]. [facility] provides all of her respiratory needs. Discussed home health care services and she currently has [facility] and would like to resume those services upon discharge. She states Luis from [facility] did see her on Friday. When medically stable she will be discharged to home with the resumption of her [facility] services. Her will provide transportation on discharge. EPHRAIM TORRE
--- NOTE | 2019-04-05 12:25 | NUR ---
Spoke to Sherry at [facility] regarding new mattress for her hospital bed. Will need script and documentation. Notified Dr. Wallace.
--- NOTE | 2019-04-05 13:38 | NUR ---
PATIENT C/O HAND AND SHOULDER PAIN. DESCRIBES A PRESSURE TYPE PAIN, RATES 5/10 MEDICATED WITH ULTRAM ORDERED.
--- NOTE | 2019-04-05 14:43 | NUR ---
PHYSICAL THERAPY Nursing screen received and chart reviewed. Physical therapy referral received. Thank you. Aster Wang,PT,DPT.
--- NOTE | 2019-04-05 15:01 | NUR ---
PHYSICAL THERAPY Physical therapy evaluation complete, 5E. Low complexity PT evaluation per chart review and evaluation (75091). PT to progress transfers, gait, balance, and endurance per POC. Recommend discharge home with home health services at discharge. Thank you. Aster Wang,PT,DPT
--- NOTE | 2019-04-05 15:02 | NUR ---
Occupational therapy orders received and OT evaluation completed in full on floor five. Patient precautions include fall risk, 4L02, walker use, and SOB. Per OT eval, OT recommends home with home health SN, PT, and OT. Patient would benefit from OT treatment to maximize independence in ADLs and functional mobility/transfers. Patient complexity is low, 52105. Thank you for the referral. Sis Franco, OTR/L
--- NOTE | 2019-04-05 16:03 | NUR ---
PATIENT COMPLAINING OF GENERALIZED JABBING AND ACHING PAIN 8/10 MEDICATED WITH PERCOCET ORDERED.
--- NOTE | 2019-04-05 17:02 | NUR ---
PERCOCET GIVEN X 1 HOUR AGO EFFECTIVE IN DECREASING PAIN, PAIN DECREASED 3/10
--- NOTE | 2019-04-05 20:24 | NUR ---
DR NUNEZ AWARE OF PATIENT HEART RATE AND BLOOD PRESSURE. STATES TO START CARDIZEM AND LOPRESSOR TONIGHT INSTEAD OF TOMORROW MORNING.
--- NOTE | 2019-04-05 20:51 | NUR ---
DR NUNEZ AWARE OF PATIENT C/O REDNESS AND ITCHING UNDER HER BREASTS. ORDER TAKEN
[2019-04-06] VITALS: BP 181/71
[2019-04-06 06:28] LABS: HEMATOCRIT 33.9 % (37.0-47.0); HEMOGLOBIN 10.6 g/dl (12.0-16.0); MEAN CELL VOLUME 87.8 fl (81.0-99.0); MEAN CORPUSCULAR HGB 27.5 pg (27.0-31.0); MEAN CORPUSCULAR HGB CONC 31.3 g/dl (33.0-37.0); MEAN PLATELET VOLUME 11.1 fl (9.6-12.3); PLATELET COUNT AUTOMATED 304 10*3/uL (130-400); RED BLOOD COUNT 3.86 10*6/uL (4.10-5.10); RED CELL DISTRI WIDTH 15.2 % (0-14.5); WHITE BLOOD COUNT 12.4 10*3/uL (4.8-10.8)
[2019-04-06 06:40] LABS: ALBUMIN 3.1 gm/dl (3.1-4.5); BUN 15 mg/dl (7-24); CHLORIDE 102 mmol/L (98-107); CREATININE 0.79 mg/dL (0.55-1.02); PHOSPHOROUS 3.6 mg/dL (2.5-4.9); POTASSIUM 3.3 mmol/L (3.5-5.1); SGOT/AST 12 IU/L (3-35); SGPT/ALT 26 U/L (12-78); SODIUM 140 mmol/L (136-145)
[2019-04-06 06:41] LABS: ALKALINE PHOSPHATASE 88 U/L (45-117); TOTAL PROTEIN 6.3 gm/dL (6.4-8.2)
[2019-04-06 06:59] LABS: OVALOCYTES FEW; PLATELET SUFFICIENCY NORMAL (NORMAL); POLYCHROMASIA SLIGHT; TOTAL CELLS COUNTED 100 #CELLS; VACUOLATION OF NEUTROPHILS SLIGHT
--- NOTE | 2019-04-06 07:25 | NUR ---
ARRIVED ON SHIFT, PATIENT SITTING UP ON BED, BEDSIDE REPORT RECEIVED, PATIENT VERSED SHE IS HAVING PAIN, REQUESTED PERCLYDIA, WHITE BOARD UPDATED.
--- NOTE | 2019-04-06 07:39 | NUR ---
Shift chart check completed.
--- NOTE | 2019-04-06 07:45 | NUR ---
Pain Assessment Are you having pain now? YES Have you had pain in the last several days or weeks? YES, CHRONIC Pain location: KNEE, BACK ,HIP Pain duration, onset: CHRONIC Pain quality, pattern: ACHING Intensity: PATIENT RATES 7 Alleviating/Aggravating factors: MEDICATION/STANDING WORSENS PAIN Effects: DECREASED MOVEMENT Knowledge: AWARE OF TAKING MEDICATION AT ONSET OF PAIN Pain medication effective: JUST GIVEN Is the environment quiet? YES Was the patient given a flyer re: pain control education? YES RON AQUINO
[2019-04-06 08:00] VITALS: BP 140/70
--- NOTE | 2019-04-06 08:30 | NUR ---
Newspaper Vendor in to see patient. No new needs or request at this time. When medically stable she will be discharged to home with the resumption of her OV services.
--- NOTE | 2019-04-06 08:45 | NUR ---
PATIENT REPORTS PERCOCET WAS HELPFUL AND PAIN IS BETTER NOW 08/02
--- NOTE | 2019-04-06 10:35 | NUR ---
PHYSICAL THERAPY Patient seen this am 1:1 for therapy visit and was coming out of her bathroom upon therapist arrival. Patient identified by name / and reports no new c/o's at this time. Patient ambulates SERVICE CAPTAIN/CGA, 30'x 2, demontrating slow, cautious, "waddling" gait pattern. Patient fatigues quickly secondary to continuos use 02-4L via NC and needed seated rest break to continue second gait trial. Patient SpO2 94%, HR 80 bpm prior to treatment and following gait ex SpO2 92%, HR 85 bpm. Patient also instructed / performed seated B LE therex, all planes, x 15 reps each to increase LE strength. Patient remained EOB sit with call light, tray table and telephone. Will continue per POC as tolerated, total treatment time 23 minutes. Anthony Lugo, [employer]ODU[employer] MAKER
--- NOTE | 2019-04-06 10:40 | NUR ---
OT NOTE Attempted to see pt this A.M. for OT session and upon arrival pt was working with physical therapy. Will check back at a later time/date and continue with POC as able. MICHELLE Estrada/Anna
[2019-04-06 12:00] VITALS: BP 140/77
--- NOTE | 2019-04-06 13:45 | NUR ---
OT NOTE Pt was seen this P.M. 1:1 for 30 minute OT session. Upon arrival pt was supine in bed. Pt identified by name and and had no complaints at this time. Pt presented to therapy with continuous 4L-O2 via NC which she remained on throughout the entire session. Pt transferred supine to sit EOB with SBA. Pt completed sit to stand from bed level with CGA. Functional mobility then completed around the room with SBA while gathering clothing and ADL items from various locations and heights. Judson pt was educated on energy conservation techniques, pt verbalized understanding and presented with good carry over. Functional mobility then completed into the bathroom with SBA and good management of O2 line. Pt transferred on/off standard commode with SBA and use of grab bar. Functional mobility then completed back to the EOB where she completed BUE towel exercises over all planes of motion for 1 X 10 to increase UE strength needed for increased I in self care tasks and functional transfers. Pt was left sitting upright on the EOB with call light in hand, tray table in place, and phone in reach. Throughout entire session pt's SpO2 was within functional limits 94%-96%. Continue with rec D/C plan to home with home health. MICHELLE Estrada/Anna
--- NOTE | 2019-04-06 15:10 | NUR ---
After discussion with MARTINEZ, clarification of OT goals as follows: OT Goals: 1. mi dressing with adapt equip including set up/item retreival 2. NC bathing with adapt equipment, 3. I grooming with ww in standing. 4 I in toileting, 5, NC transfers and functional mobility w/ ww, 6. Improve safety to good in ADLs. 7. Tolerate 10 minutes standing in ADLs, 8. Improve BUE strength to 5/5 for ADLs. Treatment plan to include EC/WS, strengthening,adaptive equipment for safe ADLs, adaptive methods. Vivian Grace OTR/L
[2019-04-06 16:00] VITALS: BP 121/42
--- NOTE | 2019-04-06 16:45 | NUR ---
CALL PLACED TO HOSPITALIST LINE SPOKE WITH DR GALAVIZ, PATIENT REQUESTING OK TO REMOVE TELEMETRY UNIT FOR SHOWER,OK RECEIVED.
--- NOTE | 2019-04-06 17:03 | NUR ---
MONITOR REMOVED, SO PATIENT COULD SHOWER, ALSO GAVE PERCOCET FOR KNEE PAIN 12/30.
--- NOTE | 2019-04-06 18:03 | NUR ---
PATIENT REPORTS SHOWER AND PERCOCET WAS HELPFUL WITH PAIN WHICH SHE STATES IS A 3/10
[2019-04-06 20:00] VITALS: BP 115/54
--- NOTE | 2019-04-06 22:32 | NUR ---
MEDICATED WITH PRN PERCOCET FOR C/O PAIN IN HIP
[2019-04-07] VITALS: BP 150/62
--- NOTE | 2019-04-07 02:22 | NUR ---
24 HR chart check completed.
[2019-04-07 06:34] LABS: HEMATOCRIT 34.2 % (37.0-47.0); HEMOGLOBIN 10.5 g/dl (12.0-16.0); MEAN CELL VOLUME 88.6 fl (81.0-99.0); MEAN CORPUSCULAR HGB 27.2 pg (27.0-31.0); MEAN CORPUSCULAR HGB CONC 30.7 g/dl (33.0-37.0); MEAN PLATELET VOLUME 10.7 fl (9.6-12.3); PLATELET COUNT AUTOMATED 328 10*3/uL (130-400); RED BLOOD COUNT 3.86 10*6/uL (4.10-5.10); RED CELL DISTRI WIDTH 15.3 % (0-14.5)
[2019-04-07 06:47] LABS: CHLORIDE 104 mmol/L (98-107); POTASSIUM 3.6 mmol/L (3.5-5.1); SODIUM 139 mmol/L (136-145)
[2019-04-07 06:52] LABS: BUN 20 mg/dl (7-24); CREATININE 0.88 mg/dL (0.55-1.02)
[2019-04-07 07:04] LABS: PLATELET SUFFICIENCY NORMAL (NORMAL); TOTAL CELLS COUNTED 100 #CELLS
[2019-04-07 08:20] VITALS: BP 148/68
--- NOTE | 2019-04-07 08:20 | NUR ---
PT SITTING UP AT SIDE OF BED. RESP-EASY AND REGULAR. OXYGEN IN USE. NO C/O AT THIS TIME. CALL LIGHT IN REACH. SEE SHIFT ASSESSMENT.
[2019-04-07 12:00] VITALS: BP 123/98
--- NOTE | 2019-04-07 15:40 | NUR ---
PT INSTRUCTED ON USE OF PF METER. PT EFFORT IS GOOD. PERFORMANCE POOR. PT OBTAINING BETWEEN 100-150 ML. WILL CONTINUE TO REASSESS NEEDED.
[2019-04-07 15:54] LABS: BILIRUBIN NEGATIVE (NEGATIVE); BLOOD NEGATIVE (NEGATIVE); CLARITY CLEAR (CLEAR); COLOR YELLOW (YELLOW); GLUCOSE 2+ (NEGATIVE); KETONE NEGATIVE (NEGATIVE); LEUKO ESTERASE NEGATIVE (NEGATIVE); NITRITE NEGATIVE (NEGATIVE); PH 5.5 (5.0-9.0); SPECIFIC GRAVITY 1.015 (1.005-1.030); UROBILINOGEN 0.2 E.U./dl (0.2-1.0)
[2019-04-07 16:00] VITALS: BP 128/60
[2019-04-07 16:08] LABS: HYALINE CAST 0-2; YEAST 1+
--- NOTE | 2019-04-07 17:15 | NUR ---
SITTING UP AT SIDE OF BED WITH VISITORS AT HER SIDE. BSG-342, SEE EMAR. OXYGEN IN USE. NO C/O AT THIS TIME. TOLERATED ROUTINE MED WITH NO PROBLEM. CALL LIGHT IN REACH. SEE SHIFT ASSESSMENT.
[2019-04-07 20:00] VITALS: BP 138/70
--- NOTE | 2019-04-07 23:18 | NUR ---
PATIENT MEDICATED WITH PERCOCET PER PRN ORDER FOR C/O PAIN. SEE EMAR. REINFORCED USE OF CALL LIGHT.
[2019-04-08] VITALS: BP 148/56
--- NOTE | 2019-04-08 02:48 | NUR ---
24 HR chart check completed.
[2019-04-08 09:05] LABS: BUN 19 mg/dl (7-24); CHLORIDE 103 mmol/L (98-107); CREATININE 0.83 mg/dL (0.55-1.02); POTASSIUM 3.5 mmol/L (3.5-5.1); SODIUM 140 mmol/L (136-145)
--- NOTE | 2019-04-08 10:28 | NUR ---
PATIENT RECEIVED OXYCODONE FOR PAIN RATED 6/10.
--- NOTE | 2019-04-08 10:59 | NUR ---
Faxed hospital mattress replacement to [facility] with clinical documentation.
[2019-04-08] MEDS ORDERED: CEFUROXIME AXE250 MG PO (11:08)
[2019-04-08] MEDS ORDERED: NYSTOP60 GM T (11:08)
--- NOTE | 2019-04-08 11:11 | NUR ---
Faxed home health resumption order to [facility]
--- NOTE | 2019-04-08 11:35 | NUR ---
Spoke to Sherry at [facility] regarding hospital mattress replacement. Patient received her hospital bed from [facility] September 2014. She believes a hospital bed is covered every 5 years but she is unsure about the mattress. Sherry is going to reach out to patient regarding they have a bipap for her and need to know when they would be able to come out and set it up. Spoke to Macho at [facility] regarding hospital mattress replacement. Patient would have to pay $100 for mattress replacement. Inquired about a warranty on the mattress and there is not. Patient notified.
[2019-04-08 12:00] VITALS: BP 128/50
--- NOTE | 2019-04-08 13:06 | NUR ---
OT NOTE Pt was seen this P.M. 1:1 for 26 minute Ot session. Upon arrival pt was sitting upright in the recliner. Pt identified by name and and had no complaints at this time. Pt presented to therapy with continuous 3L-O2 via NC which she remained on throughout the entire session. Pt completed functional mobility around the room with CGA while gathering supplies needed for ADL task out of dresser and closet. Educated pt throughout on energy conservation techniques and breathing techniques. Pt verbalized understanding. Pt was educated and demonstrated on use of lower body adaptive equipment including retail consultant, sock aid, and long handled sponge for increased I in lower body dressing and bathing. Pt donned B socks with use of sock aid and SBA and doffed with use of retail consultant and SBA. Pt then simulated lower body bathing with use of long handled sponge and SBA. Pt was left sitting upright in the recliner with call light in hand, tray table in place, and phone in reach. Continue with rec D/C plan to home with home health. MICHELLE Estrada/Anna
--- NOTE | 2019-04-08 15:29 | NUR ---
Discharge instructions reviewed with patient/family. Patient receptive and verbalizes understanding. Follow-up care arranged. Written instructions given to patient/family. PATIENT TAKEN FROM FLOOR VIA WHEELCHAIR. NO S/S OF DISTRESS. GILSON HYMAN
--- NOTE | 2019-04-09 16:00 | NUR ---
OCCUPATIONAL THERAPY CO-SIGN I approve of the Occupational Therapy notes written above. ALEK HUTCHISON OTR/Anna
--- NOTE | 2019-04-09 16:37 | NUR ---
PHYSICAL THERAPY CO-SIGN I approve of the Physical Therapy notes written above. CHICO BARRY, PT, DPT
== END 2019-04-08 15:29 | disposition home health service (06) | DRG 291 ==
LOC: ED 23:30 → 5E 04-05 01:10 → EDHOLD 04-05 01:10 → 5E 04-05 01:20
PROVIDERS: Emergency Medicine; Internal Medicine; Internal Medicine Critical Care Medicine; ADMIT Internal Medicine
PROC: 5A09357 Assistance with Respiratory Ventilation, Less than 24 Consecutive Hours, Continuous Positive Airway Pressure (ICD-10-PCS; principal; 2019-04-07)
DX: I11.0 Hypertensive heart disease with heart failure (principal); R65.11 Systemic inflammatory response syndrome (SIRS) of non-infectious origin with acute organ dysfunction; J96.21 Acute and chronic respiratory failure with hypoxia; E44.0 Moderate protein-calorie malnutrition; E87.2 Acidosis; J44.1 Chronic obstructive pulmonary disease with (acute) exacerbation; J44.0 Chronic obstructive pulmonary disease with (acute) lower respiratory infection; Z68.44 Body mass index [BMI] 60.0-69.9, adult; K44.9 Diaphragmatic hernia without obstruction or gangrene; I48.91 Unspecified atrial fibrillation; J20.9 Acute bronchitis, unspecified; G47.33 Obstructive sleep apnea (adult) (pediatric); I50.33 Acute on chronic diastolic (congestive) heart failure; E78.5 Hyperlipidemia, unspecified; E66.01 Morbid (severe) obesity due to excess calories; E11.65 Type 2 diabetes mellitus with hyperglycemia; D64.9 Anemia, unspecified; E55.9 Vitamin D deficiency, unspecified; Z90.49 Acquired absence of other specified parts of digestive tract; Z82.49 Family history of ischemic heart disease and other diseases of the circulatory system; Z82.5 Family history of asthma and other chronic lower respiratory diseases; Z88.2 Allergy status to sulfonamides; Z88.8 Allergy status to other drugs, medicaments and biological substances

== ENCOUNTER → 2019-04-23 | Outpatient (CLI) | payer MEDICARE ==
[~2019-04-23] MED LIST changes: +CEFUROXIME AXE250 MG PO; +NYSTOP60 GM T
[2019-04-23 16:53] LABS: CREATININE 1.14 mg/dL (0.55-1.02); POTASSIUM 4.1 mmol/L (3.5-5.1)
== END | disposition home or self-care (01) ==
LOC: LAB 16:04
PROVIDERS: Internal Medicine
DX: R60.0 Localized edema (principal)

== ENCOUNTER 2019-05-18 14:42 | Inpatient (IN) | payer MEDICARE ==
[~2019-05-18] VITALS: Ht 165.1 cm; Wt 148.1 kg
[2019-05-18 14:44] VITALS: BP 129/62
[2019-05-18 15:25] VITALS: BP 132/66
[2019-05-18 15:53] LABS: BASO # 0.1 10*3/uL (0.0-0.1); HEMATOCRIT 38.2 % (37.0-47.0); HEMOGLOBIN 11.6 g/dl (12.0-16.0); LYMPH # 2.1 10*3/uL (1.3-4.4); MEAN CELL VOLUME 90.1 fl (81.0-99.0); MEAN CORPUSCULAR HGB 27.4 pg (27.0-31.0); MEAN CORPUSCULAR HGB CONC 30.4 g/dl (33.0-37.0); MEAN PLATELET VOLUME 10.6 fl (9.6-12.3); MONO # 0.8 10*3/uL (0.1-1.0); MONO % 6.4 % (3.0-9.0); NEUT # 9.7 10*3/uL (2.3-7.9); NEUT % 75.3 % (47.0-73.0); PLATELET COUNT AUTOMATED 321 10*3/uL (130-400); RED BLOOD COUNT 4.24 10*6/uL (4.10-5.10); WHITE BLOOD COUNT 12.8 10*3/uL (4.8-10.8)
--- NOTE | 2019-05-18 15:55 | NUR ---
PATIENT A&OX3, DENIES ANY WOUNDS. SCAB TO THE LEFT FOREARM
[2019-05-18 16:14] LABS: ALBUMIN 3.3 gm/dl (3.1-4.5); ALKALINE PHOSPHATASE 134 U/L (45-117); BUN 18 mg/dl (7-24); CHLORIDE 103 mmol/L (98-107); CREATININE 1.08 mg/dL (0.55-1.02); POTASSIUM 4.1 mmol/L (3.5-5.1); SGOT/AST 22 IU/L (3-35); SGPT/ALT 20 U/L (12-78); SODIUM 138 mmol/L (136-145); TOTAL PROTEIN 7.4 gm/dL (6.4-8.2)
--- NOTE | 2019-05-18 16:24 | NUR ---
IV SITE DISCONTINUED.
[2019-05-18 17:25] VITALS: BP 132/66
[2019-05-18 17:55] VITALS: BP 128/61
[2019-05-18 18:05] VITALS: BP 134/61
--- NOTE | 2019-05-18 18:05 | NUR ---
A 58, admitted to 4E, under the services of SHONA Mtz MD with a diagnosis of COPD EXACERBATION, FAILURE O/P TREATMENT. Chief complaint is MULTIPLE COMPLAINTS. Patient arrived via stretcher from ER. Monitor applied. Initial assessment completed. Vital signs taken and recorded. SHONA MTZ MD notified of admission to the unit. Orders received. See assessment for past medical history, medications and allergies. Patient and/or family oriented to unit. [facility] 4TH FLOOR visitation policy reviewed. Clothing/patient valuable form completed. NICK ABBOTT
--- NOTE | 2019-05-18 18:46 | NUR ---
ATTEMPTED TO CALL DR. GARCIA WITH NEW CONSULT. NO ANSWER WILL RETRY
--- NOTE | 2019-05-18 19:13 | NUR ---
DR. GARCIA CALLED BACK NO NEW ORDERS RECEIVED. WILL CONTINUE TO MONITOR.
[2019-05-18 20:00] VITALS: BP 131/55
--- NOTE | 2019-05-18 23:55 | NUR ---
PATIENT MEDICATED WITH PERCOCET PER PRN ORDER FOR C/O BACK PAIN. RATED PAIN A 8/10 WITH 10 BEING THE WORST. SEE EMAR. REINFORCED USE OF CALL LIGHT
[2019-05-19] VITALS: BP 128/64
--- NOTE | 2019-05-19 01:30 | NUR ---
PATIENT RESTING QUIETLY. MEDICATION EFFECTIVE.
[2019-05-19 06:40] LABS: HEMATOCRIT 33.9 % (37.0-47.0); HEMOGLOBIN 10.4 g/dl (12.0-16.0); MEAN CELL VOLUME 87.8 fl (81.0-99.0); MEAN CORPUSCULAR HGB 26.9 pg (27.0-31.0); MEAN CORPUSCULAR HGB CONC 30.7 g/dl (33.0-37.0); MEAN PLATELET VOLUME 10.5 fl (9.6-12.3); PLATELET COUNT AUTOMATED 245 10*3/uL (130-400); RED BLOOD COUNT 3.86 10*6/uL (4.10-5.10); RED CELL DISTRI WIDTH 15.7 % (0-14.5); WHITE BLOOD COUNT 9.5 10*3/uL (4.8-10.8)
[2019-05-19 06:59] LABS: ALKALINE PHOSPHATASE 123 U/L (45-117); BUN 21 mg/dl (7-24); CHLORIDE 103 mmol/L (98-107); CREATININE 1.11 mg/dL (0.55-1.02); POTASSIUM 4.3 mmol/L (3.5-5.1); SGOT/AST 19 IU/L (3-35); SGPT/ALT 21 U/L (12-78); SODIUM 136 mmol/L (136-145)
[2019-05-19 07:50] LABS: TOTAL CELLS COUNTED 100 #CELLS
[2019-05-19 07:51] LABS: PLATELET SUFFICIENCY NORMAL (NORMAL); POLYCHROMASIA SLIGHT
[2019-05-19 08:00] VITALS: BP 146/58
--- NOTE | 2019-05-19 08:00 | NUR ---
Tool Grinding Machine Operator in to talk to patient. Patient states lives at home with her , son, and [id number]. There are 17 steps to the back of her home and 58 steps to the front of her home. There are no steps once inside. Physician: Dr. Heron Wallace Pharmacy: [facility] health services: currently has OV nursing and would like to resume those services upon discharge Patient's level of ADLs: MINIMAL ASSIST Patient has working utilities: yes DME: walker, hospital bed, O2 @ 3L nc, nebulizer, bipap, portable O2 tanks, O2 supplier [facility] Follow-up physician's appointment after d/c: she prefers to make her own follow up appt after discharge Does patient want to access PORTAL?: no Discharge plan discussed with patient. She lives at home with her , son, and [id number]. She needs minimal assistance with her ADLs and ambulates with a walker. Discussed home health care services and she currently has OV nursing and would like to resume those services upon discharge. When medically stable she will be discharged to home with the resumption of her OV services. Her will provide transportation on discharge. EPHRAIM TORRE
--- NOTE | 2019-05-19 08:02 | NUR ---
PHYSICAL THERAPY Pt is 58 y/o F admit from home with COPD exacerbationa and hypoxia. Pt seen during 04/10 admisson, please consult therapy if functional and ambulatory status has declined, thank you. Litzy Roger PT
--- NOTE | 2019-05-19 09:38 | NUR ---
PATIENT MEDICATED WITH PRN PERCOCET FOR BACK PAIN. RATES 01/30. WILL CHECK EFFECTIVENESS.
--- NOTE | 2019-05-19 10:30 | NUR ---
PATIENT STATES PAIN MEDICATION WAS EFFECTIVE.
[2019-05-19 12:00] VITALS: BP 145/75
--- NOTE | 2019-05-19 13:29 | NUR ---
Faxed home health resumption to [facility] in case patient discharges over the holiday weekend
--- NOTE | 2019-05-19 15:03 | NUR ---
Nursing screen received and chart reviewed. Patient was admitted at the ED for shortness of breath with a PMH including COPD, obesity, A-Fib, and CHF. If patient has a decline in ADLs and functional mobility/transfers, please send OT referral. Thank you. Sis Franco, OTR/L
--- NOTE | 2019-05-19 15:30 | NUR ---
PATIENT UPSET. PATIENT WANTING TO BE DISCHARGED TODAY INSTEAD OF TOMORROW.PT WILL NOT RECEIVE ANTIBIOTICS TONIGHT AND WILL BE UNABLE TO GET NEW MEDICATIONS TOMORROW DUE TO THE HOLIDAY. NOTIFIED DR. IGNACIO. HE WENT AND SPOKE WITH PATIENT. STATED HE WOULD TALK TO DR. BOSTON
[2019-05-19 16:00] VITALS: BP 154/74
[2019-05-19] MEDS ORDERED: PREDNISONE10 MG PO (16:05)
--- NOTE | 2019-05-19 17:46 | NUR ---
PNEUMONIA SHOT GIVEN IN LEFT DELTOID BEFORE DISCHARGE. DISCHARGE PAPER WORK GIVEN TO PATIENT. PATIENT LEFT VIA WHEELCHAIR ITH . Discharge instructions reviewed with patient/family. Patient receptive and verbalizes understanding. Follow-up care arranged. Written instructions given to patient/family. NICK ABBOTT
== END 2019-05-19 18:25 | disposition home health service (06) | DRG 189 ==
LOC: ED 14:42 → 4E 16:54 → EDHOLD 16:54 → 4E 17:42
PROVIDERS: Internal Medicine; Nurse Practitioner Family; ADMIT Internal Medicine
DX: J96.21 Acute and chronic respiratory failure with hypoxia (principal); J44.1 Chronic obstructive pulmonary disease with (acute) exacerbation; I50.32 Chronic diastolic (congestive) heart failure; Z68.43 Body mass index [BMI] 50.0-59.9, adult; J44.0 Chronic obstructive pulmonary disease with (acute) lower respiratory infection; D72.829 Elevated white blood cell count, unspecified; D64.9 Anemia, unspecified; D72.9 Disorder of white blood cells, unspecified; J20.9 Acute bronchitis, unspecified; D72.810 Lymphocytopenia; E11.65 Type 2 diabetes mellitus with hyperglycemia; G47.33 Obstructive sleep apnea (adult) (pediatric); K21.9 Gastro-esophageal reflux disease without esophagitis; I48.21 Permanent atrial fibrillation; I11.0 Hypertensive heart disease with heart failure; E66.01 Morbid (severe) obesity due to excess calories; E78.5 Hyperlipidemia, unspecified; E55.9 Vitamin D deficiency, unspecified; Z88.2 Allergy status to sulfonamides; Z88.8 Allergy status to other drugs, medicaments and biological substances; Z91.09 Other allergy status, other than to drugs and biological substances; Z90.49 Acquired absence of other specified parts of digestive tract; Z98.891 History of uterine scar from previous surgery; Z87.891 Personal history of nicotine dependence; Z82.5 Family history of asthma and other chronic lower respiratory diseases; Z82.49 Family history of ischemic heart disease and other diseases of the circulatory system; Z86.010 Personal history of colon polyps; Z79.899 Other long term (current) drug therapy; Z79.84 Long term (current) use of oral hypoglycemic drugs; Z85.42 Personal history of malignant neoplasm of other parts of uterus

== ENCOUNTER 2019-07-09 21:17 | Emergency (ER) | payer MEDICARE ==
[~2019-07-09] VITALS: Ht 160 cm; Wt 147.4 kg
[2019-07-09 21:41] LABS: HEMATOCRIT 34.9 % (37.0-47.0); HEMOGLOBIN 10.9 g/dl (12.0-16.0); MEAN CELL VOLUME 93.8 fl (81.0-99.0); MEAN CORPUSCULAR HGB 29.3 pg (27.0-31.0); MEAN CORPUSCULAR HGB CONC 31.2 g/dl (33.0-37.0); MEAN PLATELET VOLUME 9.8 fl (9.6-12.3); PLATELET COUNT AUTOMATED 297 10*3/uL (130-400); RED BLOOD COUNT 3.72 10*6/uL (4.10-5.10); RED CELL DISTRI WIDTH 17.3 % (0-14.5); WHITE BLOOD COUNT 8.9 10*3/uL (4.8-10.8)
[2019-07-09 21:51] LABS: ACT PARTIAL THROMBO TIME 26.1 SECONDS (20.0-32.1)
[2019-07-09 21:56] LABS: ALBUMIN 3.3 gm/dl (3.1-4.5); ALKALINE PHOSPHATASE 154 U/L (45-117); BUN 10 mg/dl (7-24); CHLORIDE 104 mmol/L (98-107); POTASSIUM 3.8 mmol/L (3.5-5.1); SGOT/AST 10 IU/L (3-35); SGPT/ALT 23 U/L (12-78); SODIUM 140 mmol/L (136-145); TOTAL PROTEIN 7.3 gm/dL (6.4-8.2)
[2019-07-09 21:57] LABS: TROPONIN I < 0.015 ng/ml (<0.045)
[2019-07-09 22:18] LABS: BASOPHILS 1 % (0-1); TOTAL CELLS COUNTED 100 #CELLS
[2019-07-09 22:19] LABS: PLATELET SUFFICIENCY NORMAL (NORMAL)
[2019-07-09 22:45] VITALS: BP 105/60
== END 2019-07-10 01:02 | disposition home or self-care (01) ==
LOC: ED 21:17
PROVIDERS: Emergency Medicine Emergency Medical Services
DX: I48.91 Unspecified atrial fibrillation (principal); J44.9 Chronic obstructive pulmonary disease, unspecified; E78.5 Hyperlipidemia, unspecified; I11.0 Hypertensive heart disease with heart failure; I50.9 Heart failure, unspecified; E66.01 Morbid (severe) obesity due to excess calories; E11.9 Type 2 diabetes mellitus without complications; Z88.2 Allergy status to sulfonamides; Z88.8 Allergy status to other drugs, medicaments and biological substances; Z87.891 Personal history of nicotine dependence; Z79.899 Other long term (current) drug therapy

== ENCOUNTER 2019-07-13 13:23 | Inpatient (IN) | payer MEDICARE ==
[2019-07-13] VITALS (8 sets, daily range): BP systolic 90–148; BP diastolic 40–88
[~2019-07-13] VITALS: Ht 160 cm; Wt 146.6 kg
[~2019-07-13 13:23] MED LIST changes: -VITAMIN D1000 IU PO; +VITAMIN D32000 UNI1 PO
[2019-07-13 14:09] LABS: BASO # 0.1 10*3/uL (0.0-0.1); BASO % 0.9 % (0.0-1.0); HEMATOCRIT 33.6 % (37.0-47.0); HEMOGLOBIN 10.4 g/dl (12.0-16.0); LYMPH # 1.4 10*3/uL (1.3-4.4); LYMPH % 21.1 % (27.0-41.0); MEAN CELL VOLUME 93.6 fl (81.0-99.0); MEAN PLATELET VOLUME 9.9 fl (9.6-12.3); MONO # 0.6 10*3/uL (0.1-1.0); MONO % 8.4 % (3.0-9.0); NEUT # 4.4 10*3/uL (2.3-7.9); NEUT % 67.6 % (47.0-73.0); PLATELET COUNT AUTOMATED 272 10*3/uL (130-400); RED BLOOD COUNT 3.59 10*6/uL (4.10-5.10); RED CELL DISTRI WIDTH 17.6 % (0-14.5); WHITE BLOOD COUNT 6.6 10*3/uL (4.8-10.8)
[2019-07-13 14:26] LABS: ACT PARTIAL THROMBO TIME 26.8 SECONDS (20.0-32.1)
[2019-07-13 14:29] LABS: BUN 9 mg/dl (7-24); CHLORIDE 105 mmol/L (98-107); POTASSIUM 3.8 mmol/L (3.5-5.1); SODIUM 140 mmol/L (136-145)
[2019-07-13 14:56] LABS: ALBUMIN 3.2 gm/dl (3.1-4.5); BILIRUBIN, DIRECT 0.2 mg/dL (0.0-0.2)
[2019-07-13 15:51] LABS: BILIRUBIN NEGATIVE (NEGATIVE); BLOOD NEGATIVE (NEGATIVE); CLARITY CLEAR (CLEAR); COLOR YELLOW (YELLOW); GLUCOSE NEGATIVE (NEGATIVE); KETONE NEGATIVE (NEGATIVE); LEUKO ESTERASE NEGATIVE (NEGATIVE); NITRITE NEGATIVE (NEGATIVE); UROBILINOGEN 0.2 E.U./dl (0.2-1.0)
[2019-07-13 16:08] LABS: RBC 0-2 rbc/hpf (0-2)
--- NOTE | 2019-07-13 17:30 | NUR ---
A 58, admitted to , under the services of SHONA Mtz MD with a diagnosis of A FIB WITH RVR. Chief complaint is . Patient arrived via bed from ER. Monitor applied. Initial assessment completed. Vital signs taken and recorded. SHONA MTZ MD notified of admission to the unit. Orders received. See assessment for past medical history, medications and allergies. Patient and/or family oriented to unit. [facility] visitation policy reviewed. Clothing/patient valuable form completed. VIDAL WORKMAN
--- NOTE | 2019-07-13 21:00 | NUR ---
PATIENT IS RESTING IN BED WITH EASY AND REGULAR RESPERS ON 3L O2 VIA NC. ASSESSMENT IS COMPLETE WITH NO C/O OR S/S OF DISTRESS NOTED AT THIS TIME. BED IS LOW, LOCKED, ALARMED, AND CALL LIGHT IS WITHIN REACH. WILL CONTINUE TO MONITOR, SEE SHIFT ASSESSMENT.
--- NOTE | 2019-07-13 21:31 | NUR ---
SPOKE WITH DR. GHOSH IN [facility] REGARDING PATIENT HEARTRATE BEING NORMAL SINUS RHYTHM IN THE 60-70'S AND PATIENT BEING ON CARDIZEM GTT GOING AT 5ML/HR AND ANTIARRHYTHMIC MEDICATION DUE AT 2200. INSTRUCTED TO CALL CARDIOLOGY.
--- NOTE | 2019-07-13 21:49 | NUR ---
SPOKE WITH DR. HENDRICKS IN REGARDS TO HR BEING NORMAL SINUS IN THE 60-70'S AND MULTAQ DOSE. ORDERED TO CONTINUE MULTAQ AND STOP CARDIZEM GTT AT THIS TIME.
--- NOTE | 2019-07-13 22:00 | NUR ---
SPOKE WITH DR. GALAVIZ IN REGARDS TO PATIENT BLOOD PRESSURE BEING 104/61 AND STOPPING IV FLUIDS D/T HX. CHF. OK TO STOP FLUIDS, ALSO UPDATED ON DR. HENDRICKS STOPPING CARDIZEM GTT AT THIS TIME.
[2019-07-14] VITALS: BP 127/51
--- NOTE | 2019-07-14 | NUR ---
PATIENT IS SITTING ON SIDE OF BED WITH NO C/O NOTED AT THIS TIME. CALL LIGHT IS WITHIN REACH.
--- NOTE | 2019-07-14 04:10 | NUR ---
PATIENT SLEEPING, RESPERS NONLABORED 3L O2 VIA NC. CALL LIGHT IS WITHIN REACH.
[2019-07-14 06:49] LABS: BASO # 0.1 10*3/uL (0.0-0.1); BASO % 1.1 % (0.0-1.0); HEMATOCRIT 30.4 % (37.0-47.0); HEMOGLOBIN 9.3 g/dl (12.0-16.0); LYMPH # 1.3 10*3/uL (1.3-4.4); LYMPH % 20.9 % (27.0-41.0); MEAN CELL VOLUME 94.7 fl (81.0-99.0); MEAN CORPUSCULAR HGB CONC 30.6 g/dl (33.0-37.0); MEAN PLATELET VOLUME 10.3 fl (9.6-12.3); MONO # 0.6 10*3/uL (0.1-1.0); NEUT # 4.2 10*3/uL (2.3-7.9); NEUT % 67.1 % (47.0-73.0); PLATELET COUNT AUTOMATED 259 10*3/uL (130-400); RED BLOOD COUNT 3.21 10*6/uL (4.10-5.10); RED CELL DISTRI WIDTH 17.6 % (0-14.5); WHITE BLOOD COUNT 6.2 10*3/uL (4.8-10.8)
[2019-07-14 07:06] LABS: ALBUMIN 2.9 gm/dl (3.1-4.5); ALKALINE PHOSPHATASE 101 U/L (45-117); BUN 9 mg/dl (7-24); CHLORIDE 107 mmol/L (98-107); CREATININE 0.92 mg/dL (0.55-1.02); POTASSIUM 3.6 mmol/L (3.5-5.1); SGOT/AST 12 IU/L (3-35); SGPT/ALT 18 U/L (12-78); SODIUM 142 mmol/L (136-145); TOTAL PROTEIN 6.2 gm/dL (6.4-8.2)
[2019-07-14 08:00] VITALS: BP 107/54; BP 90/50
--- NOTE | 2019-07-14 09:00 | NUR ---
Steam Conditioner Filling in to talk to patient. Patient states lives at home with her , son, and [id number]. There are 17 steps to the back of her home and 58 steps to the front of her home. There are no steps once inside. Physician: Dr. Heron Wallace Pharmacy: [facility] health services: has had [facility] in the past but not currently Patient's level of ADLs: MINIMAL ASSIST Patient has working utilities: yes DME: walker, hospital bed, O2 @ 3L nc, nebulizer, bipap, portable O2 tanks, O2 supplier [employer] Follow-up physician's appointment after d/c: she prefers to make her own follow up appt after discharge Does patient want to access PORTAL?: no Discharge plan discussed with patient. She lives at home with her , son, and [id number]. She needs minimal assistance with her ADLs and ambulates with a walker. Discussed home health care services and she denies any home needs at this time. When medically stable she will be discharged to home. Her will provide transportation on discharge. EPHRAIM TORRE
--- NOTE | 2019-07-14 09:41 | NUR ---
SPOKE TO DR CLARK REGARDING LOW BP. NEW ORDER RECEIVED TO HOLD LASIX AND TOPROL. WILL CONT TO MONITOR.
[2019-07-14 12:00] VITALS: BP 119/40
[2019-07-14 13:55] VITALS: BP 100/50
--- NOTE | 2019-07-14 14:00 | NUR ---
C/O PAIN OF 8/10 TO BACK AND KNEE, PERCOCET GIVEN AT THIS TIME. WILL CONT TO MONITOR. CALL LIGHT IN REACH.
[2019-07-14 16:00] VITALS: BP 118/58
[2019-07-14 20:00] VITALS: BP 136/54
--- NOTE | 2019-07-14 20:53 | NUR ---
PATIENT IS RESTING IN BED WITH EASY AND REGULAR RESPERS ON 3L O2 VIA NC. ASSESSMENT IS COMPLETE WITH NO S/S OF DISTRESS NOTED AT THIS TIME. PATIENT C/O NASAL DRAINAGE AND IS REQUESTING SOMETHING FOR THAT. BED IS LOW, LOCKED, ALARMED, AND CALL LIGHT IS WITHIN REACH. WILL CONTINUE TO MONITOR, SEE SHIFT ASSESSMENT.
[2019-07-15] VITALS: BP 117/39
--- NOTE | 2019-07-15 00:11 | NUR ---
SPOKE WITH DR. GHOSH IN REGARDS TO PATIENT C/O CONGESTION AND DRAINAGE. PATIENT IS REQUESTING CLARITIN. SEE NEW ORDER.
[2019-07-15 07:52] VITALS: BP 110/64
--- NOTE | 2019-07-15 10:30 | NUR ---
Sheetrock Applicator in to see patient. She is sitting up on the edge of her bed without distress noted. No new needs or request at this time. She denies any home needs. When medically stable she will be discharged to home.
[2019-07-15] MEDS ORDERED: CARDIZEM CD180 MG PO (12:51)
[2019-07-15] MEDS ORDERED: DILTIAZEM CD240 MG PO (12:54)
--- NOTE | 2019-07-15 14:02 | NUR ---
PT DISCHARGED AT THIS TIME. IV REMOVED AND PRESSURE DRESSING APPLIED. VERBALIZED UNDERSTANDING OF DISCHARGE INSTRUCTIONS.
== END 2019-07-15 14:02 | disposition home or self-care (01) | DRG 308 ==
LOC: ED 13:23 → EDHOLD 16:21 → 4E 16:21
PROVIDERS: Emergency Medicine; ADMIT Internal Medicine
DX: I48.0 Paroxysmal atrial fibrillation (principal); I50.33 Acute on chronic diastolic (congestive) heart failure; Z68.43 Body mass index [BMI] 50.0-59.9, adult; I50.32 Chronic diastolic (congestive) heart failure; I48.92 Unspecified atrial flutter; I11.0 Hypertensive heart disease with heart failure; J44.9 Chronic obstructive pulmonary disease, unspecified; E66.01 Morbid (severe) obesity due to excess calories; I95.9 Hypotension, unspecified; K21.9 Gastro-esophageal reflux disease without esophagitis; E78.5 Hyperlipidemia, unspecified; E55.9 Vitamin D deficiency, unspecified; G47.33 Obstructive sleep apnea (adult) (pediatric); E11.69 Type 2 diabetes mellitus with other specified complication; Z88.2 Allergy status to sulfonamides; Z88.8 Allergy status to other drugs, medicaments and biological substances; Z91.09 Other allergy status, other than to drugs and biological substances; Z86.010 Personal history of colon polyps; Z85.42 Personal history of malignant neoplasm of other parts of uterus; Z90.49 Acquired absence of other specified parts of digestive tract; Z98.891 History of uterine scar from previous surgery; Z87.891 Personal history of nicotine dependence; Z82.5 Family history of asthma and other chronic lower respiratory diseases; Z82.49 Family history of ischemic heart disease and other diseases of the circulatory system; Z99.81 Dependence on supplemental oxygen; Z79.899 Other long term (current) drug therapy

== ENCOUNTER 2019-07-23 18:31 | Inpatient (IN) | payer MEDICARE ==
[~2019-07-23] VITALS: Ht 160 cm; Wt 152.5 kg
[~2019-07-23 18:31] MED LIST changes: +CARDIZEM CD180 MG PO
[2019-07-23 18:39] VITALS: BP 153/51
[2019-07-23] MEDS ORDERED: BACLOFEN5 MG PO (19:12)
[2019-07-23] MEDS ORDERED: TOPROL XL25 MG PO (19:13)
[2019-07-23 19:17] LABS: BASO % 0.6 % (0.0-1.0); EOS % 0.1 % (1.0-4.0); HEMATOCRIT 30.5 % (37.0-47.0); HEMOGLOBIN 9.5 g/dl (12.0-16.0); LYMPH # 0.7 10*3/uL (1.3-4.4); LYMPH % 10.4 % (27.0-41.0); MEAN CELL VOLUME 95.9 fl (81.0-99.0); MEAN CORPUSCULAR HGB 29.9 pg (27.0-31.0); MEAN CORPUSCULAR HGB CONC 31.1 g/dl (33.0-37.0); MEAN PLATELET VOLUME 10.1 fl (9.6-12.3); MONO # 0.3 10*3/uL (0.1-1.0); MONO % 4.8 % (3.0-9.0); NEUT # 5.8 10*3/uL (2.3-7.9); NEUT % 83.5 % (47.0-73.0); PLATELET COUNT AUTOMATED 250 10*3/uL (130-400); RED BLOOD COUNT 3.18 10*6/uL (4.10-5.10); RED CELL DISTRI WIDTH 16.5 % (0-14.5); WHITE BLOOD COUNT 6.9 10*3/uL (4.8-10.8)
[2019-07-23 19:31] LABS: ACT PARTIAL THROMBO TIME 27.1 SECONDS (20.0-32.1)
[2019-07-23 19:34] LABS: ALKALINE PHOSPHATASE 121 U/L (45-117); BUN 8 mg/dl (7-24); CHLORIDE 104 mmol/L (98-107); CREATININE 1.13 mg/dL (0.55-1.02); POTASSIUM 3.8 mmol/L (3.5-5.1); SGOT/AST 14 IU/L (3-35); SGPT/ALT 18 U/L (12-78); SODIUM 141 mmol/L (136-145); TOTAL PROTEIN 6.9 gm/dL (6.4-8.2)
[2019-07-23 19:35] LABS: TROPONIN I < 0.015 ng/ml (<0.045)
[2019-07-23 20:42] VITALS: BP 154/54
[2019-07-23 22:05] VITALS: BP 131/54
--- NOTE | 2019-07-23 22:05 | NUR ---
A 58, admitted to , under the services of SHONA Mtz MD with a diagnosis of COPD. Chief complaint is SOB FOR COUPLE DAYS AND CHEST PAIN STARTED TODAY. Patient arrived via bed from ER. Monitor applied. Initial assessment completed. Vital signs taken and recorded. SHONA MTZ MD notified of admission to the . Orders received. See assessment for past medical history, medications and allergies. Patient and/or family oriented to unit. [facility] visitation policy reviewed. Clothing/patient valuable form completed. NIKKO MENDOZA
--- NOTE | 2019-07-23 23:10 | NUR ---
HEPLOCK IN LEFT WRIST INFILTRATED. DISCONTINUED PRESSURE APPLIED AND STERIL BANDAIDE APPLIED. CATHETER INTACT. IV started right forearm with #22 angiocath after 1st attempts. The IV site was prepped with Chloraprep. Heparin lock attached. Sterile dressing applied. Patient tolerated precedure well. Procedure performed according to [facility] policy & procedure. NIKKO MENDOZA
--- NOTE | 2019-07-23 23:33 | NUR ---
CALLED AND NOTIFIED DR. IGNACIO PATIENT HOME MEDICATIONS RECONCILLED.
--- NOTE | 2019-07-23 23:47 | NUR ---
SPUTUM OBTAINED AND SENT TO LAB FOR TESTING.
[2019-07-24] VITALS: BP 129/61
--- NOTE | 2019-07-24 00:56 | NUR ---
PERCOCET GIVEN PER ORDER FOR CHRONIC BACK AND LEFT KNEE RATED "7" SEE MAR.
[2019-07-24 06:13] LABS: BUN 9 mg/dl (7-24); CHLORIDE 104 mmol/L (98-107); CHOLESTEROL 111 mg/dL (<200); CREATININE 1.05 mg/dL (0.55-1.02); FREE T4 1.03 ng/dl (0.76-1.46); HDL CHOLESTEROL 46 mg/dl (40-60); LDL CHOLESTEROL 48 mg/dL (9-159); PHOSPHOROUS 2.7 mg/dL (2.5-4.9); POTASSIUM 3.9 mmol/L (3.5-5.1); SODIUM 139 mmol/L (136-145); TRIGLYCERIDES 85 mg/dl (<150); VLDL CHOLESTEROL 17 mg/dL (6-40)
[2019-07-24 06:16] LABS: HEMATOCRIT 30.6 % (37.0-47.0); HEMOGLOBIN 9.3 g/dl (12.0-16.0); MEAN CELL VOLUME 93.6 fl (81.0-99.0); MEAN CORPUSCULAR HGB 28.4 pg (27.0-31.0); MEAN CORPUSCULAR HGB CONC 30.4 g/dl (33.0-37.0); MEAN PLATELET VOLUME 10.8 fl (9.6-12.3); PLATELET COUNT AUTOMATED 259 10*3/uL (130-400); RED BLOOD COUNT 3.27 10*6/uL (4.10-5.10); RED CELL DISTRI WIDTH 16.3 % (0-14.5); WHITE BLOOD COUNT 6.3 10*3/uL (4.8-10.8)
[2019-07-24 06:19] LABS: THYROID STIM HORMONE (HS) 0.903 uIU/ml (0.358-4.75)
[2019-07-24 06:46] LABS: BASOPHILS 1 % (0-1); POLYCHROMASIA SLIGHT; TOTAL CELLS COUNTED 100 #CELLS
[2019-07-24 06:47] LABS: PLATELET SUFFICIENCY NORMAL (NORMAL)
[2019-07-24 08:00] VITALS: BP 130/82
[2019-07-24 08:06] LABS: VITAMIN D, 25-HYDROXY 49.1 ng/mL (30-100)
--- NOTE | 2019-07-24 10:33 | NUR ---
Grain Combiner in to talk to patient. Patient states lives at home with . There are 0 steps in the home. Physician: alicia [facility]acy: [facility] Home health services: none Patient's level of ADLs: INDEPENDENT Patient has working utilities: all working DME: home xoygen, portable tanks, bipap, nebulizer, walker, hospital bed from [facility] Follow-up physician's appointment after d/c: patient states she will make her own follow up appointment Does patient want to access PORTAL?: no Discharge plan discussed with patient, she states she lives at home with her hsuband, son and brother in law, she states she has home oxygen she uses 24 hours a day and all of the equipement she needs, discussed with her being readmitted to the hospital within the last 30 days and declining [facility] last admission, educated her on the services VNA provides, she states she has used [facility] in the past and doesn't feel she needs any home services at this time, case management will follow. CHRIS COLON
[2019-07-24 12:00] VITALS: BP 136/53
--- NOTE | 2019-07-24 15:31 | NUR ---
Medicated with percocet per prn order for c/o generalized pain.
[2019-07-24 16:00] VITALS: BP 132/55
--- NOTE | 2019-07-24 16:00 | NUR ---
BSG WAS > 400 X 2 TESTS. STAT REFLUX ORDERED.
--- NOTE | 2019-07-24 16:34 | NUR ---
Dr. Wallace notified of reflux glucose of 463. Reviewed sliding scale. Stated to cover per scale and given 5 units of Lantus now.
--- NOTE | 2019-07-24 16:40 | NUR ---
States that pain medication was effective. Notified pt of new orders.
[2019-07-24 20:00] VITALS: BP 120/44
--- NOTE | 2019-07-24 21:54 | NUR ---
CALLED DR. TREVINO ABOUT COVERAGE OF BLOOD SUGAR 448 AND 401 OKAY TO COVER WITH SLIDING SCALE OF 14 UNITS.
--- NOTE | 2019-07-24 23:50 | NUR ---
PERCOCET GIVEN PER ORDER FOR LEFT KNEE AND BACK PAIN RATED "7" SEE MAR.
[2019-07-25] VITALS: BP 133/60
--- NOTE | 2019-07-25 06:32 | NUR ---
24 HR chart check completed.
[2019-07-25 08:00] VITALS: BP 146/74
--- NOTE | 2019-07-25 09:06 | NUR ---
PT RESTING IN BED. NO DISTRESS NOTED. WILL MONITOR
[2019-07-25 12:00] VITALS: BP 149/65
[2019-07-25] MEDS ORDERED: PREDNISONE10 MG PO (12:02)
[2019-07-25] MEDS ORDERED: DOXYCYCLINE100 M3 PO (12:02)
--- NOTE | 2019-07-25 15:00 | NUR ---
Discharge instructions reviewed with patient/family. Patient receptive and verbalizes understanding. Follow-up care arranged. Written instructions given to patient/family. PAZ GORMAN
== END 2019-07-25 15:00 | disposition home or self-care (01) | DRG 190 ==
LOC: ED 18:31 → 4E 21:02 → EDHOLD 21:02 → 4E 21:19
PROVIDERS: Emergency Medicine; Internal Medicine; ADMIT Internal Medicine
DX: J44.0 Chronic obstructive pulmonary disease with (acute) lower respiratory infection (principal); J18.9 Pneumonia, unspecified organism; I50.32 Chronic diastolic (congestive) heart failure; Z68.43 Body mass index [BMI] 50.0-59.9, adult; I13.0 Hypertensive heart and chronic kidney disease with heart failure and stage 1 through stage 4 chronic kidney disease, or unspecified chronic kidney disease; E44.0 Moderate protein-calorie malnutrition; J44.1 Chronic obstructive pulmonary disease with (acute) exacerbation; D64.9 Anemia, unspecified; E11.65 Type 2 diabetes mellitus with hyperglycemia; E11.22 Type 2 diabetes mellitus with diabetic chronic kidney disease; E66.01 Morbid (severe) obesity due to excess calories; E78.5 Hyperlipidemia, unspecified; E55.9 Vitamin D deficiency, unspecified; K44.9 Diaphragmatic hernia without obstruction or gangrene; K21.9 Gastro-esophageal reflux disease without esophagitis; I48.91 Unspecified atrial fibrillation; M62.838 Other muscle spasm; G89.29 Other chronic pain; N18.3 Chronic kidney disease, stage 3 (moderate); Z99.81 Dependence on supplemental oxygen; Z88.8 Allergy status to other drugs, medicaments and biological substances; Z91.048 Other nonmedicinal substance allergy status; Z90.49 Acquired absence of other specified parts of digestive tract; Z87.891 Personal history of nicotine dependence; Z82.5 Family history of asthma and other chronic lower respiratory diseases; Z79.01 Long term (current) use of anticoagulants; Z79.899 Other long term (current) drug therapy

== ENCOUNTER → 2019-07-28 | Outpatient (CLI) | payer MEDICARE ==
[~2019-07-28] MED LIST changes: +TOPROL XL25 MG PO
== END | disposition home or self-care (01) ==
LOC: MAMMO 00:36
DX: Z12.31 Encounter for screening mammogram for malignant neoplasm of breast (principal)

== ENCOUNTER 2019-08-21 10:34 | Inpatient (IN) | payer MEDICARE ==
[2019-08-21] VITALS (8 sets, daily range): BP systolic 84–122; BP diastolic 35–95
[~2019-08-21] VITALS: Ht 160 cm; Wt 152.0 kg
[2019-08-21 11:17] LABS: ACT PARTIAL THROMBO TIME 26.7 SECONDS (20.0-32.1)
[2019-08-21 11:25] LABS: ALKALINE PHOSPHATASE 144 U/L (45-117); BUN 14 mg/dl (7-24); CHLORIDE 101 mmol/L (98-107); CREATININE 1.23 mg/dL (0.55-1.02); POTASSIUM 3.6 mmol/L (3.5-5.1); SGOT/AST 16 IU/L (3-35); SGPT/ALT 25 U/L (12-78); SODIUM 136 mmol/L (136-145); TOTAL PROTEIN 6.8 gm/dL (6.4-8.2)
[2019-08-21 11:26] LABS: TROPONIN I < 0.015 ng/ml (<0.045)
[2019-08-21 11:39] LABS: BASO # 0.1 10*3/uL (0.0-0.1); BASO % 0.7 % (0.0-1.0); EOS # 0.5 10*3/uL (0.0-0.4); EOS % 6.4 % (1.0-4.0); HEMOGLOBIN 11.9 g/dl (12.0-16.0); LYMPH # 1.4 10*3/uL (1.3-4.4); LYMPH % 20.5 % (27.0-41.0); MEAN CELL VOLUME 91.6 fl (81.0-99.0); MEAN CORPUSCULAR HGB 28.7 pg (27.0-31.0); MEAN CORPUSCULAR HGB CONC 31.3 g/dl (33.0-37.0); MEAN PLATELET VOLUME 10.8 fl (9.6-12.3); MONO # 0.5 10*3/uL (0.1-1.0); NEUT # 4.4 10*3/uL (2.3-7.9); PLATELET COUNT AUTOMATED 214 10*3/uL (130-400); RED BLOOD COUNT 4.15 10*6/uL (4.10-5.10); RED CELL DISTRI WIDTH 15.3 % (0-14.5)
--- NOTE | 2019-08-21 12:02 | NUR ---
PT SITTING AT BEDSIDE IN ROOM NO DISTRESS NOTED CALL LIGHT IN REACH
--- NOTE | 2019-08-21 12:49 | NUR ---
A 58, admitted to , under the services of SHONA Mtz MD with a diagnosis of INFLUENZA A, RESPIRATORY FAILURE, AFIB WITH RVR, PNEUMONITIS,. Chief complaint is SHORTNESS OF BREATH . Patient arrived via bed from ER. Monitor applied. Initial assessment completed. Vital signs taken and recorded. SHONA MTZ MD notified of admission to the unit. Orders received. See assessment for past medical history, medications and allergies. Patient and/or family oriented to unit. [facility] visitation policy reviewed. Clothing/patient valuable form completed. HUSSAIN BARKER
--- NOTE | 2019-08-21 13:30 | NUR ---
ADMISSION ORDERS RECEIVED FROM DR CLARK.
--- NOTE | 2019-08-21 14:52 | NUR ---
CONSULT CALLED TO DR DOWNS PER ORDERS GIVEN BY DR CLARK.
--- NOTE | 2019-08-21 16:45 | NUR ---
DR IBARRA IN ROOM TO SEE PT AT THIS TIME.
--- NOTE | 2019-08-21 17:54 | NUR ---
OXYGEN ORDER ADDED PER RESPIRATORY REQUEST.
--- NOTE | 2019-08-21 18:04 | NUR ---
DR BOSTON STATES THAT SHE WANTS PT TO ONLY HAVE 1 BAG OF 0.9 NORMAL SALINE AT 80ML/HOUR. UPDATES MADE TO ORDER. WILL NOTIFY PATIENT.
--- NOTE | 2019-08-21 19:15 | NUR ---
PT IS AWAKE AND SITTING UP ON THE SIDE OF THE BED. SHE STATES THAT SHE IS FEELING OKAY AND NOT EXPERIENCING ANY PAIN OR DISCOMFORT. IV FLUIDS INFUSING PER ORDER. RESPS ARE EASY AND NONLABORED. BED IS LOW, CALL LIGHT WITHIN REACH. WILL CONTINUE TO MONITOR.
--- NOTE | 2019-08-21 20:04 | NUR ---
24 HR CHART CHECK COMPLETE.
[2019-08-22] VITALS: BP 121/56
--- NOTE | 2019-08-22 00:53 | NUR ---
NOTIFIED DR CLARK REGARDING PATIENTS LACTIC ACID LEVEL OF 6.3. NO NEW ORDERS AT THIS TIME.
[2019-08-22 01:05] LABS: BILIRUBIN NEGATIVE (NEGATIVE); BLOOD NEGATIVE (NEGATIVE); CLARITY CLEAR (CLEAR); COLOR STRAW (YELLOW); GLUCOSE 2+ (NEGATIVE); KETONE NEGATIVE (NEGATIVE); LEUKO ESTERASE NEGATIVE (NEGATIVE); NITRITE NEGATIVE (NEGATIVE); SPECIFIC GRAVITY 1.005 (1.005-1.030); UROBILINOGEN 0.2 E.U./dl (0.2-1.0)
[2019-08-22 01:11] LABS: RBC 0-2 rbc/hpf (0-2)
[2019-08-22 01:12] LABS: BACTERIA TRACE; EPITHELIAL CELLS 0-2; YEAST TRACE
[2019-08-22 07:10] LABS: HEMATOCRIT 33.4 % (37.0-47.0); HEMOGLOBIN 10.4 g/dl (12.0-16.0); MEAN CELL VOLUME 90.5 fl (81.0-99.0); MEAN CORPUSCULAR HGB 28.2 pg (27.0-31.0); MEAN CORPUSCULAR HGB CONC 31.1 g/dl (33.0-37.0); MEAN PLATELET VOLUME 11.4 fl (9.6-12.3); PLATELET COUNT AUTOMATED 163 10*3/uL (130-400); RED BLOOD COUNT 3.69 10*6/uL (4.10-5.10); RED CELL DISTRI WIDTH 15.1 % (0-14.5); WHITE BLOOD COUNT 3.6 10*3/uL (4.8-10.8)
[2019-08-22 07:29] LABS: ALBUMIN 2.7 gm/dl (3.1-4.5); POTASSIUM 4.1 mmol/L (3.5-5.1); TOTAL PROTEIN 6.3 gm/dL (6.4-8.2)
[2019-08-22 07:37] LABS: PLATELET SUFFICIENCY NORMAL (NORMAL); POLYCHROMASIA SLIGHT; TOTAL CELLS COUNTED 100 #CELLS
[2019-08-22 07:39] LABS: CREATININE 1.16 mg/dL (0.55-1.02)
--- NOTE | 2019-08-22 08:00 | NUR ---
IN TO ROOM. PATIENT AWAKE, ALERT AND ORIENTED. PLEASANT AND COOPERATIVE. NO STATED COMPLAINTS AT THIS TIME AND DENIES PAIN. PT STATES SHE FEELS BETTER TODAY. RESPIRATIONS ARE EASY AND REGULAR ON 3L NC. NO SOB NOTED AT REST. BED IN LOWEST LOCKED POSITION AND CALL LIGHT WITHIN REACH. WILL CONTINUE TO MONITOR.
--- NOTE | 2019-08-22 08:15 | NUR ---
CALL FROM LAB WITH CRITICAL LACTIC ACID. DR. CLARK NOTIFIED AND ORDERS OBTAINED.
--- NOTE | 2019-08-22 11:02 | NUR ---
PATIENT COMPLAINS OF BACK AND KNEE PAIN RATED AT A 9. PRN PERCOCET ADMINISTERED AT THIS TIME. WILL MONITOR FOR EFFECTIVENESS.
[2019-08-22 12:00] VITALS: BP 142/67
--- NOTE | 2019-08-22 12:30 | NUR ---
PT STATES RELIEF FROM PAIN.
--- NOTE | 2019-08-22 14:06 | NUR ---
DR. CLARK NOTIFIED OF ELEVATED LACTIC ACID OF 4.8. ORDERS OBTAINED TO STOP METFORMIN.
[2019-08-22 16:00] VITALS: BP 103/69
--- NOTE | 2019-08-22 17:00 | NUR ---
DR. CLARK NOTIFIED OF PATIENTS ELEVATED LACTIC ACID. BOLUS ORDERS OBTAINED.
--- NOTE | 2019-08-22 19:21 | NUR ---
24 HR CHART CHECK COMPLETE.
[2019-08-22 20:00] VITALS: BP 151/67
[2019-08-22 22:08] LABS: ABG BASE EXCESS -3.9 mmol/L (-2.0-2.0); ARTERIAL BLOOD GAS PH 7.372 (7.35-7.45)
[2019-08-23] VITALS: BP 143/66
[2019-08-23 05:59] LABS: ALKALINE PHOSPHATASE 123 U/L (45-117); BUN 15 mg/dl (7-24); CHLORIDE 107 mmol/L (98-107); CREATININE 1.09 mg/dL (0.55-1.02); POTASSIUM 4.4 mmol/L (3.5-5.1); SGOT/AST 11 IU/L (3-35); SGPT/ALT 23 U/L (12-78); SODIUM 139 mmol/L (136-145); TOTAL PROTEIN 6.5 gm/dL (6.4-8.2)
[2019-08-23 06:11] LABS: HEMATOCRIT 32.9 % (37.0-47.0); HEMOGLOBIN 10.1 g/dl (12.0-16.0); MEAN CELL VOLUME 91.6 fl (81.0-99.0); MEAN CORPUSCULAR HGB 28.1 pg (27.0-31.0); MEAN CORPUSCULAR HGB CONC 30.7 g/dl (33.0-37.0); MEAN PLATELET VOLUME 11.2 fl (9.6-12.3); PLATELET COUNT AUTOMATED 183 10*3/uL (130-400); RED BLOOD COUNT 3.59 10*6/uL (4.10-5.10); WHITE BLOOD COUNT 6.5 10*3/uL (4.8-10.8)
[2019-08-23 06:44] LABS: PLATELET SUFFICIENCY NORMAL (NORMAL); POLYCHROMASIA SLIGHT; TOTAL CELLS COUNTED 100 #CELLS
--- NOTE | 2019-08-23 08:00 | NUR ---
IN TO ROOM. PATIENT AWAKE, ALERT AND ORIENTED. NO STATED COMPLAINTS. DENIES PAIN AT THIS TIME. RESPIRATIONS ARE EASY AND REGULAR. 3L NC. NO SOB NOTED AT REST. BED IN LOWEST LOCKED POSITION, CALL LIGHT WITHIN REACH. IV ANTIBIOTICS ARE RUNNING.
--- NOTE | 2019-08-23 09:00 | NUR ---
Lead Vulcanizing Operator in to talk to patient. Patient states lives at home with her , son, and [id number]. There are 17 steps to the back of her home and 58 steps to the front of her home. There are no steps once inside. Physician: Dr. Heron Wallace Pharmacy: [facility] services: has had [facility] nursing in the past but not currently Patient's level of ADLs: MINIMAL ASSIST Patient has working utilities: yes DME: walker, hospital bed, O2 @ 3L nc, nebulizer, bipap, portable O2 tanks, O2 supplier [employer] Follow-up physician's appointment after d/c: she prefers to make her own follow up appt after discharge Does patient want to access PORTAL?: no Discharge plan discussed with patient. She lives at home with her , son, and [id number]-kh-vqv. She needs minimal assistance with her ADLs and ambulates with a walker. Discussed home health care services and she denies any home needs at this time. When medically stable she will be discharged to home. Her will provide transportation on discharge. EPHRAIM TORRE
[2019-08-23 12:00] VITALS: BP 141/63
--- NOTE | 2019-08-23 12:05 | NUR ---
Nutritional Support Services Note: Appetite is good for meals, she is eating 100% of all meals. Regular diet as ordered. Dx of Flu A, servere sepsis, resp failure, pneumonia, COPD. Continue to encourage good po intake. Will follow if needed. Encouraged healthy eating habits and weight loss. Kimberly Pettit Rdn Ld
[2019-08-23 16:00] VITALS: BP 140/57
--- NOTE | 2019-08-23 17:00 | NUR ---
DR HERRERA CALLED TO BE NOTIFIED OF BLOOD SUGAR OF 456. INSTRUCTEDE TO USE SLIDING SCALE FOR TREATMENT AND RECHECK IN 2 HRS.
--- NOTE | 2019-08-23 17:05 | NUR ---
PATIENT LOUDLY YELLED AT LAB WHEN THEY ENTERED THE ROOM FOR A STAT GLUCOSE REFLEX. PT STATES "THEY DON'T KNOW WHAT THEY ARE DOING" AND WILL NOT LET LAB DRAW BLOOD. LAB MARKED REFUSED.
--- NOTE | 2019-08-23 18:55 | NUR ---
DR HERRERA NOTIFIED OF REPEAT BLOOD SUGAR. ORDERS OBTAINED TO GIVE SLIDING SCALE AGAIN.
[2019-08-23 20:00] VITALS: BP 147/51
--- NOTE | 2019-08-23 23:01 | NUR ---
PATIENT MEDICATED WITH PERCOCET FOR COMPLAINTS OF NOT FEELING WELL. SAID SHE WOKE UP NOT FEELING GOOD. WILL CONTINUE TO MONITOR. CALL LIGHT IN REACH.
[2019-08-24] VITALS: BP 143/58
[2019-08-24 06:53] LABS: BUN 17 mg/dl (7-24); CHLORIDE 108 mmol/L (98-107); CREATININE 1.05 mg/dL (0.55-1.02); HEMATOCRIT 32.5 % (37.0-47.0); MEAN CORPUSCULAR HGB CONC 30.8 g/dl (33.0-37.0); MEAN PLATELET VOLUME 10.8 fl (9.6-12.3); PLATELET COUNT AUTOMATED 175 10*3/uL (130-400); POTASSIUM 4.1 mmol/L (3.5-5.1); RED BLOOD COUNT 3.57 10*6/uL (4.10-5.10); RED CELL DISTRI WIDTH 14.8 % (0-14.5); SODIUM 137 mmol/L (136-145)
[2019-08-24 07:29] LABS: PLATELET SUFFICIENCY NORMAL (NORMAL); TOTAL CELLS COUNTED 100 #CELLS
[2019-08-24 08:00] VITALS: BP 162/70
--- NOTE | 2019-08-24 09:00 | NUR ---
Play Back Operator in to see patient. She is sitting on the edge of her bed without distress noted. No new needs or request. She denies any home needs. When medically stable she will be discharged to home.
--- NOTE | 2019-08-24 09:00 | NUR ---
MEDICATED WITH PRN PO PERCOCET FOR C/O GENERALIZED BODY PAIN.
--- NOTE | 2019-08-24 10:00 | NUR ---
PRN PO PERCOCET EFFECTIVE FOR PAIN, PER PATIENT.
[2019-08-24 12:00] VITALS: BP 155/45
--- NOTE | 2019-08-24 13:30 | NUR ---
PATIENT BECAME SOB WITH AMBULATING TO RR, STATES FEELING SHAKY, WEAK AND ANXIOUS. OBTAINED BEDSIDE GLUCOSE RESULT OF 388, POX 97% O2 3L NC, REMAINS DYSPNEIC BUT NOT IN DISTRESS, HR REMAINS 60'S, BP 161/62, WILL CONTINUE TO MONITOR.
[2019-08-24 16:00] VITALS: BP 134/61
--- NOTE | 2019-08-24 18:30 | NUR ---
DR. GARCIA NOTIFIED OF THE CONSULT.
[2019-08-24 20:00] VITALS: BP 162/74
--- NOTE | 2019-08-24 21:58 | NUR ---
PATIENT MEDICATED WITH XANAX AND PERCOCET FOR COMPLAINTS OF ANXIETY AND PAIN. WILL MONITOR FOR EFFECTIVENESS. CALL LIGHT IN REACH.
[2019-08-25] VITALS: BP 154/67
[2019-08-25 06:14] LABS: HEMATOCRIT 32.4 % (37.0-47.0); MEAN CELL VOLUME 90.5 fl (81.0-99.0); MEAN CORPUSCULAR HGB 27.9 pg (27.0-31.0); MEAN CORPUSCULAR HGB CONC 30.9 g/dl (33.0-37.0); MEAN PLATELET VOLUME 11.1 fl (9.6-12.3); NUCLEATED RED BLOOD CELL 0.4 % (0.0-0.0); PLATELET COUNT AUTOMATED 175 10*3/uL (130-400); RED BLOOD COUNT 3.58 10*6/uL (4.10-5.10); RED CELL DISTRI WIDTH 14.6 % (0-14.5); WHITE BLOOD COUNT 4.5 10*3/uL (4.8-10.8)
[2019-08-25 06:28] LABS: BUN 18 mg/dl (7-24); CHLORIDE 109 mmol/L (98-107); CREATININE 0.93 mg/dL (0.55-1.02); SODIUM 140 mmol/L (136-145)
[2019-08-25 06:52] LABS: TOTAL CELLS COUNTED 100 #CELLS
[2019-08-25 06:53] LABS: PLATELET SUFFICIENCY NORMAL (NORMAL)
--- NOTE | 2019-08-25 07:52 | NUR ---
24 HR chart check completed.
[2019-08-25 08:00] VITALS: BP 159/85; BP 168/66
--- NOTE | 2019-08-25 08:58 | NUR ---
MEDICATED WITH PO PERCOCET ORDERED PER PT REQUEST FOR C/O PAIN TO BACK RATED 5/10.
--- NOTE | 2019-08-25 09:00 | NUR ---
Real Estate Recruiter in to see patient. No new needs or request. She denies any home needs. When medically stable she will be discharged to home.
--- NOTE | 2019-08-25 11:00 | NUR ---
MEDICATION EFFECTIVE FOR PAIN.
[2019-08-25 12:00] VITALS: BP 154/49
[2019-08-25 16:00] VITALS: BP 150/77
[2019-08-25 20:00] VITALS: BP 168/73
--- NOTE | 2019-08-25 22:46 | NUR ---
PATIENT COMPLAINING OF COUGHING. REQUESTING SOMETHING FOR IT. NOTIFEID DR NUNEZ AND HE TOLD ME THE PATIENT CAN HAVE TESSALON ABRAHAM. WILL PUT ORDER IN.
--- NOTE | 2019-08-25 23:17 | NUR ---
PERCOCET GIVEN FOR PAIN IN BACK RATED 7/10 AND TESSALON PERLES GIVEN FOR COUGHING PER PATIENT REQUEST. WILL ASSESS EFFECTIVENESS.
--- NOTE | 2019-08-25 23:20 | NUR ---
PATIENT HELPED TO THE BATHROOM AND THEN IN BED. CPAP ON. NO FURTHER REQUESTS AT THIS TIME. CALL LIGHT WITHIN REACH. WILL CONTINUE TO MONITOR.
[2019-08-26] VITALS: BP 180/74
[2019-08-26 00:35] VITALS: BP 174/74
--- NOTE | 2019-08-26 00:45 | NUR ---
24 HR chart check completed.
[2019-08-26 08:00] VITALS: BP 167/54
--- NOTE | 2019-08-26 08:00 | NUR ---
Patient resting quietly with no c/o discomfort. Respirations easy and regular. Vital signs stable. No overt distress. TIMMY OJEDA
--- NOTE | 2019-08-26 08:30 | NUR ---
Ice Crusher in to see patient. No new needs or request. She denies any home needs. When medically stable she will be discharged to home.
[2019-08-26 12:00] VITALS: BP 168/72
[2019-08-26 16:00] VITALS: BP 157/64
--- NOTE | 2019-08-26 16:00 | NUR ---
Patient resting quietly with no c/o discomfort. Respirations easy and regular. Vital signs stable. No overt distress. TIMMY OJEDA
--- NOTE | 2019-08-26 17:54 | NUR ---
MEDICATED WITH PO PERCOCET ORDERED PER PT REQUEST FOR C/O PAIN TO BACK/KNEES RATED 8/10.
[2019-08-26 20:00] VITALS: BP 139/64
--- NOTE | 2019-08-26 22:00 | NUR ---
SITTING UP IN BED. BSG-373, SEE EMAR. NO C/O AT THIS TIME. OXYGEN IN USE. TOLERATED ROUTINE MED WITH NO PROBLEM. CALL LIGHT IN REACH.
--- NOTE | 2019-08-26 22:48 | NUR ---
PT SITTING UP AT SIDE OF BED. REQUESTING XANAX FOR ANXIETY. MEDICATED WITH XANAX PO PER PRN ORDER, SEE EMAR. PT TAPE AROUND IV CHANGED TO PAPER TAPE SHE STATES IT IS ITCHING HER. CALL LIGHT IN REACH.
[2019-08-27] VITALS: BP 159/62
--- NOTE | 2019-08-27 | NUR ---
RESTING IN BED WITH EYES CLOSED. AWAKENS EASILY. STATES MEDICATION WAS EFFECTIVE. CALL LIGHT IN REACH. SEE SHIFT ASSESSMENT.
--- NOTE | 2019-08-27 06:30 | NUR ---
PT RESTING IN BED. BSG-302, SEE EMAR. OXYGEN IN USE. CALL LIGHT IN THE [facility].
[2019-08-27 07:12] LABS: HEMATOCRIT 31.4 % (37.0-47.0); MEAN CORPUSCULAR HGB 28.7 pg (27.0-31.0); MEAN CORPUSCULAR HGB CONC 31.8 g/dl (33.0-37.0); MEAN PLATELET VOLUME 10.6 fl (9.6-12.3); NUCLEATED RED BLOOD CELL 0.5 % (0.0-0.0); PLATELET COUNT AUTOMATED 195 10*3/uL (130-400); RED BLOOD COUNT 3.49 10*6/uL (4.10-5.10); RED CELL DISTRI WIDTH 14.5 % (0-14.5); WHITE BLOOD COUNT 6.4 10*3/uL (4.8-10.8)
[2019-08-27 07:39] LABS: BUN 16 mg/dl (7-24); CHLORIDE 108 mmol/L (98-107); CREATININE 0.85 mg/dL (0.55-1.02); POTASSIUM 3.8 mmol/L (3.5-5.1); SODIUM 140 mmol/L (136-145)
[2019-08-27 08:00] VITALS: BP 148/84; BP 156/78
[2019-08-27 08:01] LABS: OVALOCYTES FEW; PLATELET SUFFICIENCY NORMAL (NORMAL); POLYCHROMASIA SLIGHT; TOTAL CELLS COUNTED 100 #CELLS
--- NOTE | 2019-08-27 09:20 | NUR ---
PERCOCET GIVEN FOR C/O BACK PAIN. RATES 8/10 ON PAIN SCALE. WILL MONITOR.
--- NOTE | 2019-08-27 10:30 | NUR ---
PERCOCET EFFECTIVE PER PT.
--- NOTE | 2019-08-27 11:00 | NUR ---
Tube Splicer in to see patient. No new needs or request. She denies any home needs. When medically stable she will be discharged to home.
--- NOTE | 2019-08-27 11:29 | NUR ---
IMMODIUM GIVEN FOR C/O DIARRHEA. WILL MONITOR.
[2019-08-27] MEDS ORDERED: CELEXA20 MG PO (14:05)
[2019-08-27] MEDS ORDERED: XANAX0.25 MG PO (14:05)
[2019-08-27] MEDS ORDERED: PREDNISONE10 MG PO (14:05)
[2019-08-27] MEDS ORDERED: JANUVIA100 MG PO (14:05)
--- NOTE | 2019-08-27 15:10 | NUR ---
[facility] Discharge instructions reviewed with patient/family. Patient receptive and verbalizes understanding. Follow-up care arranged. Written instructions given to patient/family. NARCISO CARDONA
[2019-08-27] MEDS ORDERED: NORVASC10 MG PO (19:41)
== END 2019-08-27 15:10 | disposition home or self-care (01) | DRG 871 ==
LOC: ED 10:34 → EDHOLD 12:19 → 4E 12:19
PROVIDERS: Emergency Medicine; Hospitalist; Internal Medicine Nephrology; ADMIT Internal Medicine
PROC: 5A09357 Assistance with Respiratory Ventilation, Less than 24 Consecutive Hours, Continuous Positive Airway Pressure (ICD-10-PCS; principal; 2019-08-24)
PROC: 5A09357 Assistance with Respiratory Ventilation, Less than 24 Consecutive Hours, Continuous Positive Airway Pressure (ICD-10-PCS; 2019-08-25)
DX: A41.9 Sepsis, unspecified organism (principal); J10.00 Influenza due to other identified influenza virus with unspecified type of pneumonia; J96.21 Acute and chronic respiratory failure with hypoxia; J44.1 Chronic obstructive pulmonary disease with (acute) exacerbation; J44.0 Chronic obstructive pulmonary disease with (acute) lower respiratory infection; E87.2 Acidosis; I48.21 Permanent atrial fibrillation; I13.0 Hypertensive heart and chronic kidney disease with heart failure and stage 1 through stage 4 chronic kidney disease, or unspecified chronic kidney disease; Z68.43 Body mass index [BMI] 50.0-59.9, adult; D68.8 Other specified coagulation defects; I50.32 Chronic diastolic (congestive) heart failure; N17.9 Acute kidney failure, unspecified; E83.41 Hypermagnesemia; R79.89 Other specified abnormal findings of blood chemistry; R65.20 Severe sepsis without septic shock; F41.9 Anxiety disorder, unspecified; I95.9 Hypotension, unspecified; N18.9 Chronic kidney disease, unspecified; G47.33 Obstructive sleep apnea (adult) (pediatric); E11.22 Type 2 diabetes mellitus with diabetic chronic kidney disease; E11.65 Type 2 diabetes mellitus with hyperglycemia; J20.9 Acute bronchitis, unspecified; E66.01 Morbid (severe) obesity due to excess calories; E78.5 Hyperlipidemia, unspecified; Z90.49 Acquired absence of other specified parts of digestive tract; Z83.6 Family history of other diseases of the respiratory system; Z88.1 Allergy status to other antibiotic agents; Z88.8 Allergy status to other drugs, medicaments and biological substances; Z79.899 Other long term (current) drug therapy; Z79.01 Long term (current) use of anticoagulants; Z87.891 Personal history of nicotine dependence; Z82.5 Family history of asthma and other chronic lower respiratory diseases

== ENCOUNTER 2019-09-13 14:04 | Inpatient (IN) | payer MEDICARE ==
[~2019-09-13] VITALS: Ht 157.4 cm; Wt 143.9 kg
[2019-09-13] VITALS (14 sets, daily range): BP systolic 96–146; BP diastolic 43–94
[~2019-09-13 14:04] MED LIST changes: +CELEXA20 MG PO; +JANUVIA100 MG PO; +NORVASC10 MG PO
[2019-09-13 14:43] LABS: BASO % 0.3 % (0.0-1.0); HEMOGLOBIN 11.2 g/dl (12.0-16.0); LYMPH # 1.6 10*3/uL (1.3-4.4); LYMPH % 18.2 % (27.0-41.0); MEAN CELL VOLUME 90.2 fl (81.0-99.0); MEAN CORPUSCULAR HGB 28.1 pg (27.0-31.0); MEAN CORPUSCULAR HGB CONC 31.1 g/dl (33.0-37.0); MEAN PLATELET VOLUME 10.2 fl (9.6-12.3); MONO # 0.7 10*3/uL (0.1-1.0); MONO % 7.5 % (3.0-9.0); NEUT # 6.5 10*3/uL (2.3-7.9); NEUT % 72.3 % (47.0-73.0); PLATELET COUNT AUTOMATED 165 10*3/uL (130-400); RED BLOOD COUNT 3.99 10*6/uL (4.10-5.10)
[2019-09-13 14:55] LABS: ACT PARTIAL THROMBO TIME 23.4 SECONDS (20.0-32.1)
[2019-09-13 15:01] LABS: ALKALINE PHOSPHATASE 137 U/L (45-117); BUN 8 mg/dl (7-24); CHLORIDE 104 mmol/L (98-107); CREATININE 0.89 mg/dL (0.55-1.02); POTASSIUM 3.5 mmol/L (3.5-5.1); SGOT/AST 14 IU/L (3-35); SGPT/ALT 42 U/L (12-78); SODIUM 138 mmol/L (136-145); TOTAL PROTEIN 6.1 gm/dL (6.4-8.2)
[2019-09-13 15:05] LABS: TROPONIN I < 0.015 ng/ml (<0.045)
[2019-09-14] VITALS (7 sets, daily range): BP systolic 105–146; BP diastolic 50–70
[2019-09-14 03:43] LABS: BILIRUBIN NEGATIVE (NEGATIVE); CLARITY CLEAR (CLEAR); COLOR YELLOW (YELLOW); GLUCOSE 3+ (NEGATIVE)
[2019-09-14 03:44] LABS: BLOOD NEGATIVE (NEGATIVE); KETONE TRACE (NEGATIVE); LEUKO ESTERASE NEGATIVE (NEGATIVE); NITRITE NEGATIVE (NEGATIVE); SPECIFIC GRAVITY 1.015 (1.005-1.030); UROBILINOGEN 0.2 E.U./dl (0.2-1.0); WBC 0-2 wbc/hpf (0-5); YEAST TRACE
[2019-09-14 06:06] LABS: HEMATOCRIT 33.9 % (37.0-47.0); HEMOGLOBIN 10.6 g/dl (12.0-16.0); MEAN CELL VOLUME 90.2 fl (81.0-99.0); MEAN CORPUSCULAR HGB 28.2 pg (27.0-31.0); MEAN CORPUSCULAR HGB CONC 31.3 g/dl (33.0-37.0); MEAN PLATELET VOLUME 10.4 fl (9.6-12.3); PLATELET COUNT AUTOMATED 163 10*3/uL (130-400); RED BLOOD COUNT 3.76 10*6/uL (4.10-5.10); RED CELL DISTRI WIDTH 15.1 % (0-14.5); WHITE BLOOD COUNT 6.3 10*3/uL (4.8-10.8)
[2019-09-14 06:37] LABS: ALBUMIN 2.8 gm/dl (3.1-4.5); BUN 9 mg/dl (7-24); CHLORIDE 105 mmol/L (98-107); CHOLESTEROL 129 mg/dL (<200); CREATININE 0.82 mg/dL (0.55-1.02); PHOSPHOROUS 3.2 mg/dL (2.5-4.9); POTASSIUM 3.3 mmol/L (3.5-5.1); SGOT/AST 15 IU/L (3-35); SGPT/ALT 38 U/L (12-78); SODIUM 140 mmol/L (136-145); TRIGLYCERIDES 267 mg/dl (<150); VLDL CHOLESTEROL 53 mg/dL (6-40)
[2019-09-14 06:45] LABS: ALKALINE PHOSPHATASE 122 U/L (45-117); HDL CHOLESTEROL 46 mg/dl (40-60); LDL CHOLESTEROL 30 mg/dL (9-159); TOTAL PROTEIN 5.4 gm/dL (6.4-8.2)
[2019-09-14 07:19] LABS: PLATELET SUFFICIENCY NORMAL (NORMAL); TOTAL CELLS COUNTED 100 #CELLS
[2019-09-14] MEDS ORDERED: CARDIZEM CD180 MG PO (14:28)
== END 2019-09-14 15:28 | disposition home or self-care (01) | DRG 309 ==
LOC: ED 14:04 → 4E 16:37 → EDHOLD 16:37 → 4E 17:28
PROVIDERS: Emergency Medicine; Internal Medicine; ADMIT Internal Medicine
DX: I48.0 Paroxysmal atrial fibrillation (principal); E44.0 Moderate protein-calorie malnutrition; I13.0 Hypertensive heart and chronic kidney disease with heart failure and stage 1 through stage 4 chronic kidney disease, or unspecified chronic kidney disease; I50.32 Chronic diastolic (congestive) heart failure; Z68.43 Body mass index [BMI] 50.0-59.9, adult; J01.90 Acute sinusitis, unspecified; E83.51 Hypocalcemia; E78.5 Hyperlipidemia, unspecified; J44.9 Chronic obstructive pulmonary disease, unspecified; G89.29 Other chronic pain; N18.3 Chronic kidney disease, stage 3 (moderate); E11.22 Type 2 diabetes mellitus with diabetic chronic kidney disease; F41.9 Anxiety disorder, unspecified; E66.01 Morbid (severe) obesity due to excess calories; G47.30 Sleep apnea, unspecified; E11.65 Type 2 diabetes mellitus with hyperglycemia; Z88.8 Allergy status to other drugs, medicaments and biological substances; Z88.2 Allergy status to sulfonamides; Z79.899 Other long term (current) drug therapy; Z79.01 Long term (current) use of anticoagulants; Z90.49 Acquired absence of other specified parts of digestive tract; Z87.891 Personal history of nicotine dependence; Z83.6 Family history of other diseases of the respiratory system

== ENCOUNTER → 2020-05-03 | Outpatient (CLI) | payer MEDICARE ==
[~2020-05-03] MED LIST changes: +BASAG SOL SC; +DECADRON6 M1 PO; +DULOXETINE HCL20 MG PO; +ENOXAPARIN120 MG/0.2 SC; +VITAMIN B121000 MC1 IM; -VITAMIN D32000 UNI1 PO; +VITAMIN D350 MC2 PO
[2020-05-03 11:01] LABS: BASO # 0.1 10*3/uL (0.0-0.1); BASO % 0.6 % (0.0-1.0); LYMPH # 1.1 10*3/uL (1.3-4.4); LYMPH % 8.7 % (27.0-41.0); MEAN CORPUSCULAR HGB 27.3 pg (27.0-31.0); MEAN PLATELET VOLUME 9.6 fl (9.6-12.3); MONO # 0.7 10*3/uL (0.1-1.0); MONO % 5.8 % (3.0-9.0); NEUT # 10.4 10*3/uL (2.3-7.9); NEUT % 83.3 % (47.0-73.0); PLATELET COUNT AUTOMATED 252 10*3/uL (130-400); RED BLOOD COUNT 4.43 10*6/uL (4.10-5.10); RED CELL DISTRI WIDTH 14.6 % (0-14.5); WHITE BLOOD COUNT 12.5 10*3/uL (4.8-10.8)
[2020-05-03 11:35] LABS: ALBUMIN 3.5 gm/dl (3.1-4.5); CREATININE 1.14 mg/dL (0.55-1.02); POTASSIUM 4.2 mmol/L (3.5-5.1); TOTAL PROTEIN 7.7 gm/dL (6.4-8.2)
[2020-05-03 11:47] LABS: ACT PARTIAL THROMBO TIME 24.1 SECONDS (20.0-32.1)
== END | disposition home or self-care (01) ==
LOC: LAB 10:44
PROVIDERS: ATTEND Urology
DX: Z01.818 Encounter for other preprocedural examination (principal); I10 Essential (primary) hypertension; I25.10 Atherosclerotic heart disease of native coronary artery without angina pectoris; D68.8 Other specified coagulation defects

== ENCOUNTER 2020-05-18 18:56 | Emergency (ER) | payer MEDICARE ==
[~2020-05-18] VITALS: Ht 157.4 cm; Wt 141.5 kg
[~2020-05-18 18:56] MED LIST changes: -BASAG SOL SC; -DECADRON6 M1 PO; -DULOXETINE HCL20 MG PO; -ENOXAPARIN120 MG/0.2 SC; -VITAMIN B121000 MC1 IM
[2020-05-18 19:15] VITALS: BP 134/78
[2020-05-18 19:49] LABS: BASO % 0.5 % (0.0-1.0); EOS % 0.1 % (1.0-4.0); HEMATOCRIT 35.7 % (37.0-47.0); LYMPH # 1.2 10*3/uL (1.3-4.4); LYMPH % 15.3 % (27.0-41.0); MEAN CELL VOLUME 89.5 fl (81.0-99.0); MEAN CORPUSCULAR HGB 28.3 pg (27.0-31.0); MEAN CORPUSCULAR HGB CONC 31.7 g/dl (33.0-37.0); MEAN PLATELET VOLUME 10.2 fl (9.6-12.3); MONO # 0.4 10*3/uL (0.1-1.0); MONO % 5.4 % (3.0-9.0); NEUT # 5.9 10*3/uL (2.3-7.9); NEUT % 77.3 % (47.0-73.0); PLATELET COUNT AUTOMATED 251 10*3/uL (130-400); RED BLOOD COUNT 3.99 10*6/uL (4.10-5.10); RED CELL DISTRI WIDTH 16.3 % (0-14.5); WHITE BLOOD COUNT 7.6 10*3/uL (4.8-10.8)
[2020-05-18 20:16] LABS: ALBUMIN 3.3 gm/dl (3.1-4.5); ALKALINE PHOSPHATASE 186 U/L (45-117); BUN 13 mg/dl (7-24); CHLORIDE 101 mmol/L (98-107); CREATININE 1.24 mg/dL (0.55-1.02); POTASSIUM 3.9 mmol/L (3.5-5.1); SGOT/AST 14 IU/L (3-35); SGPT/ALT 21 U/L (12-78); SODIUM 137 mmol/L (136-145); TOTAL PROTEIN 7.1 gm/dL (6.4-8.2)
[2020-05-18 20:29] LABS: TROPONIN I < 0.015 ng/ml (<0.045)
[2020-05-18] MEDS ORDERED: DECADRON6 M1 PO (21:24)
== END 2020-05-18 22:22 | disposition home or self-care (01) ==
LOC: ED 18:56
PROVIDERS: Internal Medicine
DX: F41.9 Anxiety disorder, unspecified (principal); J44.9 Chronic obstructive pulmonary disease, unspecified; E11.65 Type 2 diabetes mellitus with hyperglycemia; Z88.2 Allergy status to sulfonamides; Z79.899 Other long term (current) drug therapy; Z87.891 Personal history of nicotine dependence

== ENCOUNTER → 2020-05-22 | Outpatient (CLI) | payer MEDICARE ==
[~2020-05-22] MED LIST changes: +BASAG SOL SC; +DECADRON6 M1 PO; +DULOXETINE HCL20 MG PO; +ENOXAPARIN120 MG/0.2 SC; +VITAMIN B121000 MC1 IM
== END | disposition home or self-care (01) ==
LOC: COVID19 13:28
PROVIDERS: ATTEND Internal Medicine
DX: U07.1 COVID-19 (principal)

== ENCOUNTER 2020-05-25 13:30 | Inpatient (IN) | payer MEDICARE ==
[~2020-05-25] VITALS: Ht 157.4 cm; Wt 126.7 kg
[2020-05-25 13:30] VITALS: BP 132/57
[~2020-05-25 13:30] MED LIST changes: -BASAG SOL SC; -DULOXETINE HCL20 MG PO; -ENOXAPARIN120 MG/0.2 SC; -VITAMIN B121000 MC1 IM
[2020-05-25 14:15] LABS: BASO % 0.2 % (0.0-1.0); HEMATOCRIT 44.5 % (37.0-47.0); LYMPH # 0.5 10*3/uL (1.3-4.4); LYMPH % 4.3 % (27.0-41.0); MEAN CELL VOLUME 87.1 fl (81.0-99.0); MEAN CORPUSCULAR HGB 27.2 pg (27.0-31.0); MEAN CORPUSCULAR HGB CONC 31.2 g/dl (33.0-37.0); MEAN PLATELET VOLUME 10.6 fl (9.6-12.3); MONO # 0.6 10*3/uL (0.1-1.0); MONO % 4.7 % (3.0-9.0); NEUT # 11.1 10*3/uL (2.3-7.9); PLATELET COUNT AUTOMATED 273 10*3/uL (130-400); RED BLOOD COUNT 5.11 10*6/uL (4.10-5.10); RED CELL DISTRI WIDTH 15.7 % (0-14.5); WHITE BLOOD COUNT 12.5 10*3/uL (4.8-10.8)
[2020-05-25 14:27] LABS: ACT PARTIAL THROMBO TIME 24.8 SECONDS (20.0-32.1)
[2020-05-25 14:32] LABS: ALBUMIN 3.6 gm/dl (3.1-4.5); ALKALINE PHOSPHATASE 197 U/L (45-117); BUN 22 mg/dl (7-24); CHLORIDE 99 mmol/L (98-107); CREATININE 1.09 mg/dL (0.55-1.02); LIPASE 110 U/L (73-393); SGOT/AST 10 IU/L (3-35); SGPT/ALT 19 U/L (12-78); SODIUM 136 mmol/L (136-145); TOTAL PROTEIN 8.7 gm/dL (6.4-8.2)
[2020-05-25 14:33] LABS: TROPONIN I < 0.015 ng/ml (<0.045)
--- NOTE | 2020-05-25 14:38 | NUR ---
NOTIFIED DR CASTELLANO THAT LACTIC ACID IS 2.2
--- NOTE | 2020-05-25 17:32 | NUR ---
PATIENT DENIES WOUNDS A&OX4.
[2020-05-25 20:12] LABS: ABG BASE EXCESS 2.2 mmol/L (-2.0-2.0); ARTERIAL BLOOD GAS PH 7.438 (7.35-7.45)
[2020-05-25 20:15] VITALS: BP 144/69
--- NOTE | 2020-05-25 20:15 | NUR ---
A 59, admitted to 4E, under the services of SOM Hooper DO with a diagnosis of PNEUMONIA DUE TO COVID 19. Chief complaint is SOB. Patient arrived via stretcher from ER. Monitor applied. Initial assessment completed. Vital signs taken and recorded. MED REC COMPLETED DR. CALDERON notified of admission to the FLOOR. See assessment for past medical history, medications and allergies. Patient oriented to ROOM. [address] visitation policy reviewed. Clothing/patient valuable form completed. PT ASSISTED TO THE BR AND RETURNED TO BED. PT ON HIGH FLOW OXYGEN AND HUMIDIFICATION AT 10L NC PT DENIES ANY URGENT NEEDS OR CONCERNS AT THIS TIME PT VERBALIZES UNDERSTANDING OF ALL EDUCATION PROVIDED JOSE M MYERS
--- NOTE | 2020-05-25 22:05 | NUR ---
PT TAKEN FOR CT OF THE CHEST VIA WHEELCHAIR AND STAFF ASSIST.
--- NOTE | 2020-05-25 22:30 | NUR ---
PT RETURNED FROM CT SCAN AND ASSISTED TO BED.
[2020-05-25] MEDS ORDERED: BASAG SOL SC (23:49)
[2020-05-25] MEDS ORDERED: XANAX0.25 MG PO (23:51)
[2020-05-25] MEDS ORDERED: VITAMIN B121000 MC1 IM (23:51)
[2020-05-26] VITALS: BP 124/70
[2020-05-26 06:15] LABS: BASO % 0.3 % (0.0-1.0); HEMATOCRIT 40.4 % (37.0-47.0); LYMPH # 0.4 10*3/uL (1.3-4.4); LYMPH % 4.2 % (27.0-41.0); MEAN CELL VOLUME 86.3 fl (81.0-99.0); MEAN CORPUSCULAR HGB 27.1 pg (27.0-31.0); MEAN CORPUSCULAR HGB CONC 31.4 g/dl (33.0-37.0); MONO # 0.4 10*3/uL (0.1-1.0); MONO % 3.9 % (3.0-9.0); NEUT # 7.9 10*3/uL (2.3-7.9); NEUT % 88.8 % (47.0-73.0); PLATELET COUNT AUTOMATED 217 10*3/uL (130-400); RED BLOOD COUNT 4.68 10*6/uL (4.10-5.10); RED CELL DISTRI WIDTH 15.6 % (0-14.5); WHITE BLOOD COUNT 8.9 10*3/uL (4.8-10.8)
[2020-05-26 06:43] LABS: ALBUMIN 2.8 gm/dl (3.1-4.5); BUN 22 mg/dl (7-24); CHLORIDE 101 mmol/L (98-107); CREATININE 0.89 mg/dL (0.55-1.02); LDH 233 U/L (84-246); POTASSIUM 4.5 mmol/L (3.5-5.1); SGOT/AST 14 IU/L (3-35); SGPT/ALT 16 U/L (12-78); SODIUM 135 mmol/L (136-145)
[2020-05-26 06:44] LABS: ALKALINE PHOSPHATASE 156 U/L (45-117); CPK 48 U/L (26-192)
[2020-05-26 08:00] VITALS: BP 130/73
--- NOTE | 2020-05-26 08:05 | NUR ---
PHYSICAL THERAPY Screen received pt admitted with SOB and is + for COVID, please consult PT if pt has a decline in functional status below baseline thank you Litzy Roger PT
--- NOTE | 2020-05-26 08:16 | NUR ---
Nursing screen received and chart reviewed. Patient admitted with SOB and is COVID-19 positive. If patient has a decline in ADLS, transfers, or mobility, please consult OT. Thank you. Sis Franco, OTR/L
--- NOTE | 2020-05-26 09:00 | NUR ---
Wind Turbine Technician in to talk to patient. Patient states lives at home with family. There are no steps in the home. Physician: alicia Pharmacy: [facility] [place] [facility] services: none Patient's level of ADLs: MINIMAL ASSIST Patient has working utilities: all working DME: hospital bed, walker, nebulizer, home oxygen at 3l, portable tanks, [employer] Follow-up physician's appointment after d/c: patient chooses to make her own follow up appointment Does patient want to access PORTAL?: no Discharge plan discussed with patient, she lives at home with family, she uses a walker for ambulation and requires minimal assistance for adls, she has home oxygen at 3l/min portable tanks, she stated she would return home when discharged if able, she is currently covid positive with pulse ox 93% at 6l, case management will follow. CHRIS COLON
--- NOTE | 2020-05-26 10:26 | NUR ---
Dr Giles's office notified of consult for covid 19 pneumonia.
[2020-05-26 12:00] VITALS: BP 148/60
--- NOTE | 2020-05-26 14:15 | NUR ---
PATIENT TAKEN OFF OF BI-PAP, PLACED ON 10 L/M HIGH FLOW.
[2020-05-26 14:28] LABS: ARTERIAL BLOOD GAS PH 7.427 (7.35-7.45)
--- NOTE | 2020-05-26 14:50 | NUR ---
Nutritional Support Services Note: Appetite is good for meals, she receives an 1800cal diet as ordered. Ht.5'2 Wt.312#. Will continue to follow as needed. Encourage fluids and continued good po intake. Kimberly Pettit Rdn Ld
--- NOTE | 2020-05-26 14:59 | NUR ---
PERCOSET 5/325 MG GIVEN FOR C/O NECK PAIN,03/02.
[2020-05-26 16:00] VITALS: BP 120/61
--- NOTE | 2020-05-26 17:20 | NUR ---
NOTIFIED DR DOWNS OF [facility] 406.
--- NOTE | 2020-05-26 19:03 | NUR ---
PERCOSET 5/325 MG GIVEN FOR C/O NECK PAIN,03/02.
[2020-05-26 20:00] VITALS: BP 144/76
[2020-05-27] VITALS: BP 124/54
--- NOTE | 2020-05-27 03:45 | NUR ---
PATIENT REQUESTING TO COME OFF BIPAP FOR A SHORT BREAK. 12 HIGH FLOW NASAL CANNULA PLACED ON PATIENT.
--- NOTE | 2020-05-27 03:45 | NUR ---
PATIENT C/O BACK AND SIDE PAIN FROM TRYING TO SELF PRONE. RATES 01/30. MEDICATED WITH PERCOCET AT THIS TIME. WILL CHECK EFFECTIVENESS.
--- NOTE | 2020-05-27 04:00 | NUR ---
ON 12L HIGH FLOW NASAL CANNULA PATIENT PULSE OX 88-89% PATIENT PLACED ON 15L HIGH FLOW. PULSE OX NOW 90%. NOTIFIED RESPIRATORY. BIPAP PLACED BACK ON. 07/04 50%.
--- NOTE | 2020-05-27 04:30 | NUR ---
PATIENT STATES PERCOCET IS HELPING.
--- NOTE | 2020-05-27 04:54 | NUR ---
PATIENT SLEEPING. BIPAP ON. 07/04 50%FIO2. PULSE OX 93%. BED IN LOWEST POSITION CALL LIGHT WITHIN REACH. WILL CONTINUE TO MONITOR.
[2020-05-27 06:58] LABS: BASO % 0.2 % (0.0-1.0); HEMATOCRIT 39.8 % (37.0-47.0); LYMPH # 0.8 10*3/uL (1.3-4.4); LYMPH % 8.6 % (27.0-41.0); MEAN CELL VOLUME 86.5 fl (81.0-99.0); MEAN CORPUSCULAR HGB 27.6 pg (27.0-31.0); MEAN CORPUSCULAR HGB CONC 31.9 g/dl (33.0-37.0); MEAN PLATELET VOLUME 11.2 fl (9.6-12.3); MONO # 0.5 10*3/uL (0.1-1.0); MONO % 5.6 % (3.0-9.0); NEUT % 83.5 % (47.0-73.0); PLATELET COUNT AUTOMATED 232 10*3/uL (130-400); RED CELL DISTRI WIDTH 15.6 % (0-14.5); WHITE BLOOD COUNT 9.6 10*3/uL (4.8-10.8)
[2020-05-27 07:19] LABS: BUN 23 mg/dl (7-24); CHLORIDE 104 mmol/L (98-107); CREATININE 0.75 mg/dL (0.55-1.02); POTASSIUM 3.9 mmol/L (3.5-5.1); SODIUM 138 mmol/L (136-145)
--- NOTE | 2020-05-27 07:50 | NUR ---
PATIENT TAKEN OFF OF BI-PAP, PLACED ON 15 L/M HIGH FLOW.
[2020-05-27 08:00] VITALS: BP 127/57
[2020-05-27 08:13] LABS: ABG BASE EXCESS 2.7 mmol/L (-2.0-2.0); ARTERIAL BLOOD GAS PH 7.474 (7.35-7.45)
--- NOTE | 2020-05-27 08:23 | NUR ---
NOTIFIED DR GARCIA OF ABG RESULTS AND THAT PT HFO2 WAS INCREASED FROM 10L HF TO 15L HF.PT ANXIOUS AND SPO2 WHILE ON BIPPAP 88-91%.DR GARCIA WILL ROUND AND SEE PT.
--- NOTE | 2020-05-27 11:50 | NUR ---
DR GARCIA ROUNDED AND REQUESTED PT TO BE TRANSFERRED TO ICU.
[2020-05-27 12:00] VITALS: BP 128/64
--- NOTE | 2020-05-27 12:03 | NUR ---
[facility] NOW [facility]PER DR GARCIA'S ORDER .ROOM HAS TO BE CLEANED ONCE CURRENT PT HAS BEEN TRANSFERRED TO [facility]. PT STABLE AT THIS TIME ON BIPAP. SPO2 87% -91 % ON CONTINUOUS PULSE OX. WILL CONTINUE TO MONITOR. HEALTH PHYSICS TECHNICIAN AWARE. VOICES NO NEEDS AT THIS TIME. CALL LIGHT IN REACH.
--- NOTE | 2020-05-27 16:23 | NUR ---
TRANSFERRED PT TO [facility] [address] GARCIA'S REQUEST.REPORT GIVEN TO JOSE ENRIQUE BARON RN.
[2020-05-27 16:30] VITALS: BP 140/63
--- NOTE | 2020-05-27 16:30 | NUR ---
Transfer recieved to [facility] . PM meds given early, then placed to Bi-Pap per. RT. SAT waivering around 88-90 %. Discussed Ventilator placement and troncoso cath placement w/ this pt. Pt. is agreeable to all procedures stating " I don't want to ." advised to remain on Bi_pap for 2 hours and sleep. Pt. also agreeable to this. Spouse called in and update was given.
--- NOTE | 2020-05-27 17:06 | NUR ---
Carito IBARRA SMALL PIECE CUTTER in to juanis. Discussed proning w/ pt. who stated that she is willing to try.
--- NOTE | 2020-05-27 17:44 | NUR ---
Dr Gray was notified of pt. proning , update was given. ABG to be drawn at 1930.
--- NOTE | 2020-05-27 19:30 | NUR ---
ABG'S DRAWN AT [address] GARCIA NOTIFIED PER RESP THERAPY. NO NEW ORDERS RECEIVED. 1999 PT UNPRONED SELF. #18 DIAZ CATHETER INSERTED UNDER STERILE TECHNIQUE. TOLERATED WELL. IMMEDIATED RETURN OF CLEAR YELLOW URINE. IV LASIX GIVEN PER ORDER. ALBUMIN ALSO GIVEN. K RUN STARTED. RIJ MLC INTACT. BIPAP INTACT. PULSE OX 95%. PT IS ALERT AND ORIENTED. NO DISTRESS NOTED. 2029 PT RETURNED SELF TO PRONING POSITION. WILL CONTTO MONITOR.
[2020-05-27 19:56] LABS: ABG BASE EXCESS 1.3 mmol/L (-2.0-2.0); ARTERIAL BLOOD GAS PH 7.425 (7.35-7.45)
[2020-05-27 20:00] VITALS: BP 136/62
--- NOTE | 2020-05-27 22:24 | NUR ---
RESTING IN BED IN PRONE POSITION. BIPAP REMOVED TO TAKE PO MEDS. TOLERATED WELL. PULSE OX DROPPED TO 88% WHILE OFF BIPAP. PULSE OX BACK UP TO 93% AFTER BIPAP REMOVED. WILL CONT TO MONITOR.
[2020-05-28] VITALS: BP 145/57
--- NOTE | 2020-05-28 00:24 | NUR ---
DIURESED WELL FROM EARLIER IV LASIX. REMAINS IN PRONE POSITION IN BED.
[2020-05-28 04:00] VITALS: BP 140/57
--- NOTE | 2020-05-28 05:29 | NUR ---
0529 PERCOCET 1 PO GIVEN FOR C/O'S GENERALIZED DISCOMFORT FROM SELF PRONING. WILL MONITOR.
[2020-05-28 06:04] LABS: HEMATOCRIT 40.7 % (37.0-47.0); MEAN CELL VOLUME 86.8 fl (81.0-99.0); MEAN CORPUSCULAR HGB 27.7 pg (27.0-31.0); MEAN CORPUSCULAR HGB CONC 31.9 g/dl (33.0-37.0); MEAN PLATELET VOLUME 10.9 fl (9.6-12.3); PLATELET COUNT AUTOMATED 231 10*3/uL (130-400); RED BLOOD COUNT 4.69 10*6/uL (4.10-5.10); RED CELL DISTRI WIDTH 15.5 % (0-14.5); WHITE BLOOD COUNT 5.9 10*3/uL (4.8-10.8)
--- NOTE | 2020-05-28 06:17 | NUR ---
RESTING IN BED WITH BIPAP INTACT. PULSE OX 95%. NO DISTRESS NOTED. RIJ INTACT. DIAZ PATENT. CONDITION GUARDED.
--- NOTE | 2020-05-28 06:29 | NUR ---
0629 EARLIER PERCOCET EFFECTIVE FOR RELIEF OF PAIN.
[2020-05-28 06:30] LABS: BUN 22 mg/dl (7-24); CHLORIDE 104 mmol/L (98-107); CREATININE 0.82 mg/dL (0.55-1.02); POTASSIUM 4.2 mmol/L (3.5-5.1); SODIUM 140 mmol/L (136-145)
[2020-05-28 07:28] LABS: PLATELET SUFFICIENCY NORMAL (NORMAL); TOTAL CELLS COUNTED 100 #CELLS
[2020-05-28 08:00] VITALS: BP 126/60
[2020-05-28 08:39] LABS: ABG BASE EXCESS 2.8 mmol/L (-2.0-2.0); ARTERIAL BLOOD GAS PH 7.425 (7.35-7.45)
--- NOTE | 2020-05-28 08:50 | NUR ---
0800 Awake and alert. VSS. Breakfast ordered. ABG drawn per RT. Resulted.
--- NOTE | 2020-05-28 15:05 | NUR ---
Awake and alert. Dr. Gray in to juanis . Neal Rodriguez here A-line in process.
[2020-05-28 15:55] LABS: ABG BASE EXCESS 0.5 mmol/L (-2.0-2.0); ARTERIAL BLOOD GAS PH 7.405 (7.35-7.45)
[2020-05-28 16:00] VITALS: BP 150/59
--- NOTE | 2020-05-28 17:58 | NUR ---
Assisted to prone after supper. Dr. Gray was notified of ABG . Orders recieved.
--- NOTE | 2020-05-28 19:00 | NUR ---
Pt resting on BiPap comfortably. FiO2 70% - SPO2 96%. Alarms on and audible.
[2020-05-28 20:00] VITALS: BP 162/64
--- NOTE | 2020-05-28 20:20 | NUR ---
1935. REMAINS PRONED. RESTING IN BED WITH EYES CLOSED. APPEARS TO BE SLEEPING., AWAKENS EASILY. NO DISTRESS NOTED. CONT TO C/O PAIN L ARM. RIJ MLC INTACT. L BRACHIAL ART LINE INTACT. ZEROED AND CALIBRATED WITH GOOD WAVEFORM AND DYNAMIC RESPONSE. BIPAP INTACT. PULSE OX 97%. DIAZ PATENT AND DRAINING BLOOD TINGED URINE. NO DISTRESS NOTED,
[2020-05-28 20:37] LABS: ABG BASE EXCESS 0.3 mmol/L (-2.0-2.0); ARTERIAL BLOOD GAS PH 7.408 (7.35-7.45)
--- NOTE | 2020-05-28 20:45 | NUR ---
Called with ABG results. No changes. ABG in the AM.
--- NOTE | 2020-05-28 20:56 | NUR ---
RESP THERAPY CALLED DR. GARCIA WITH ABG RESULTS. ORDERS RECEIVED.
--- NOTE | 2020-05-28 21:05 | NUR ---
2104 PERCOCET 1 PO GIVEN FOR C/O'S PAIN LEFT ARM. REPOSITIONED. WILL MONITOR.
--- NOTE | 2020-05-28 22:05 | NUR ---
2205 EARLIER PERCOCET EFFECTIVE. RESTING IN BED WITH EYES CLOSED. APPEARS TO BE SLEEPING.
--- NOTE | 2020-05-28 23:00 | NUR ---
Pt still resting on BiPap comfortably. Self-proning. FiO2 70% SpO2 94%
[2020-05-29] VITALS: BP 157/44
[2020-05-29 04:00] VITALS: BP 167/77
--- NOTE | 2020-05-29 04:12 | NUR ---
0000 CONT TO SELF PRONE. RESTING IN BED WITH EYES CLOSED. APPEARS TO BE SLEEPING. 0400 BIPAP REMOVED FOR DRINK. TOLERATED FAIR. NO C/O'S VOICED.
[2020-05-29 06:09] LABS: BASO % 0.2 % (0.0-1.0); HEMATOCRIT 38.7 % (37.0-47.0); LYMPH # 0.5 10*3/uL (1.3-4.4); LYMPH % 8.9 % (27.0-41.0); MEAN CORPUSCULAR HGB 27.3 pg (27.0-31.0); MEAN CORPUSCULAR HGB CONC 31.8 g/dl (33.0-37.0); MEAN PLATELET VOLUME 11.2 fl (9.6-12.3); MONO # 0.4 10*3/uL (0.1-1.0); MONO % 7.2 % (3.0-9.0); NEUT # 4.5 10*3/uL (2.3-7.9); PLATELET COUNT AUTOMATED 204 10*3/uL (130-400); RED CELL DISTRI WIDTH 14.9 % (0-14.5); WHITE BLOOD COUNT 5.5 10*3/uL (4.8-10.8)
--- NOTE | 2020-05-29 06:12 | NUR ---
REMAINS PRONED. BIPAP INTACT. PULSE OX 95%. RIJ INTACT. L BRACHIAL INTACT. DIAZ PATENT. MONITOR REMAINS SINUS SARBJIT. CONDITION GUARDED.
[2020-05-29 06:13] LABS: BUN 24 mg/dl (7-24); CHLORIDE 105 mmol/L (98-107); CREATININE 0.65 mg/dL (0.55-1.02); POTASSIUM 4.3 mmol/L (3.5-5.1); SODIUM 140 mmol/L (136-145)
[2020-05-29 08:00] VITALS: BP 156/70
[2020-05-29 08:07] LABS: ABG BASE EXCESS 2.6 mmol/L (-2.0-2.0); ARTERIAL BLOOD GAS PH 7.416 (7.35-7.45)
--- NOTE | 2020-05-29 11:33 | NUR ---
MUSICAL INSTRUMENTS ASSEMBLER FAXED REFERRAL TO [facility] FOR REVIEW.
[2020-05-29 12:00] VITALS: BP 116/85
[2020-05-29 14:27] LABS: ABG BASE EXCESS 3.9 mmol/L (-2.0-2.0); ARTERIAL BLOOD GAS PH 7.446 (7.35-7.45)
[2020-05-29 16:00] VITALS: BP 155/76
[2020-05-29 20:00] VITALS: BP 154/67
--- NOTE | 2020-05-29 23:00 | NUR ---
LEFT OLD ART REMOVAL SITE BEGAN TO LEAK AT THE BEGINNING OF MY SHIFT. I RECIEVED IN REPORT THAT DARIN FORM GRADER HAD TO APPLY PRESSURE FOR UP TO 1 HOUR. KEEPING THIS IN MIND I THOUGHT IT WOULD BE BEST TO KEEP REINFORCING THE BANDAGE INSTEAD OF CHANGING. AFTER PERFORMING A COMPLETE BED BATH ON PATIENT AT 2130 I VENTURED TO CHANGE THE REINFORCED DRESSING WHICH WAS VERY SUCCESSFUL, WHICH I THOUGHT. WITH IN 30 MINUTES THE WHOLE LEFT SIDE OF THE BED WAS SATURATED IN BLOOD WITH MULTIPLE PUDDLES THAT THE PATIENT WAS LYING IN AND ALONG THE FLOOR. AFTER HOLDING PRESSURE TO SITE ALONG WITH A STOP BLEED PATCH FOR 30 MINUTES I ASKED MY COWORKER TO PAGE THE RESIDENT CABINET FINISHER. HE APPEARED THRU THE WINDOW OF THE DOOR INSTRUCTING ME TO APPLY PRESSURE FOR 20 MINUTES. I EXPLAINED THAT I HAVE BEEN PERFORMING THAT MEASURE FOR 30 MINUTES NOW. HE INSTRUCTED ME TO CALL THE NURSE ANESTHETSIS. I ASKED IF HE COULD PLACE THE CALL BECAUSE THE BLOOD WOULD EXSANGUINATE OUT IF I WAS TO RELEASE THE PRESSURE. THE DIRECTOR MOTION PICTURE ENDED UP MAKING THE CALL AND THE NURSE DEFENSE ATTORNEY STATED THAT IT WAS THE RESIDENTS RESPONSIBILITY AND THAT THEIR IS NOTHING HE CAN DO FROM HOME AND INSTRUCTED THAT THE RESIDENT CALL HIM IF THERE IS ANYMORE ISSUES TO DISCUSS. AT THIS MOMENT THERE IS NO MORE BLEEDING AT THE SITE AFTER 45 MINUTES OF PRESSURE TO SITE, 4X4 APPLIED, WRAPPED IN CLING, SECURED WITH TAPE AND A SAND BAG APPLIED.
[2020-05-30] VITALS: BP 120/70
--- NOTE | 2020-05-30 | NUR ---
PT RESTING COMFORTABLY TOLERATING BIPAP WELL. PT UP IN BED AND ASKED FOR BRIEF BREAK TO GET A DRINK. PT BACK ON BIPAP AND ATTEMPTING TO SELF PRONE IN BED.DENIES ANY COMPLAINTS AT THIS TIME. DIAZ INTACT AND IJ HEPLOCKED
[2020-05-30 04:00] VITALS: BP 119/67
[2020-05-30 06:14] LABS: ALBUMIN 3.1 gm/dl (3.1-4.5); CHLORIDE 102 mmol/L (98-107); POTASSIUM 4.6 mmol/L (3.5-5.1); SODIUM 137 mmol/L (136-145)
[2020-05-30 06:26] LABS: ALKALINE PHOSPHATASE 124 U/L (45-117); CREATININE 0.94 mg/dL (0.55-1.02); SGOT/AST 15 IU/L (3-35); SGPT/ALT 22 U/L (12-78); TOTAL PROTEIN 6.5 gm/dL (6.4-8.2)
[2020-05-30 06:42] LABS: BUN 39 mg/dl (7-24)
[2020-05-30 06:43] LABS: HEMATOCRIT 38.1 % (37.0-47.0); MEAN CORPUSCULAR HGB 27.8 pg (27.0-31.0); MEAN CORPUSCULAR HGB CONC 32.3 g/dl (33.0-37.0); MEAN PLATELET VOLUME 12.1 fl (9.6-12.3); RED BLOOD COUNT 4.43 10*6/uL (4.10-5.10); WHITE BLOOD COUNT 16.1 10*3/uL (4.8-10.8)
[2020-05-30 06:46] LABS: PLATELET COUNT AUTOMATED 352 10*3/uL (130-400)
[2020-05-30 06:50] LABS: ATYPICAL LYMPHS 1 % (0-0); TOTAL CELLS COUNTED 100 #CELLS
[2020-05-30 06:51] LABS: PLATELET SUFFICIENCY NORMAL (NORMAL)
[2020-05-30 08:00] VITALS: BP 133/70
[2020-05-30 08:26] LABS: ABG BASE EXCESS -0.3 mmol/L (-2.0-2.0); ARTERIAL BLOOD GAS PH 7.381 (7.35-7.45)
--- NOTE | 2020-05-30 09:00 | NUR ---
PT AAOX3. VSS. PT REMAINS ON BIPAP WITH 70% FIO2. ABG SENT. LUNG GARCIA DIM. ABD. OBESE WITH ACTIVE BOWEL SOUNDS. NO PERIPHERAL EDEMA NOTED. PT DENIES COMPLAINTS. WILL CONTINUE TO MONITOR PT.
--- NOTE | 2020-05-30 09:37 | NUR ---
PATIENT IS NOW ON THE WAITING LIST FOR [facility]. SHE IS 5TH IN LINE WITH THIS LIST CHANGING DAILY.
[2020-05-30 12:00] VITALS: BP 125/65
--- NOTE | 2020-05-30 12:00 | NUR ---
DR ROMERO AND DR GARCIA IN TO SEE PT.
[2020-05-30 16:00] VITALS: BP 110/58
[2020-05-30 16:36] LABS: ABG BASE EXCESS 1.3 mmol/L (-2.0-2.0); ARTERIAL BLOOD GAS PH 7.39 (7.35-7.45)
--- NOTE | 2020-05-30 19:00 | NUR ---
Pt resting on BiPap 16/12 FiO2 60% - alarms on and audible SPO2 98%
--- NOTE | 2020-05-30 19:46 | NUR ---
Shift chart check completed.24 HR chart check completed.
[2020-05-30 20:00] VITALS: BP 128/64
[2020-05-31] VITALS: BP 128/64
--- NOTE | 2020-05-31 | NUR ---
Patient resting comfortably on bipap. No signs of distress, vital signs stable. Patient denies any needs at this time. Monitoring.
--- NOTE | 2020-05-31 00:34 | NUR ---
Pt still resting on BiPap.
[2020-05-31 04:00] VITALS: BP 142/68
[2020-05-31 05:57] LABS: ALBUMIN 2.8 gm/dl (3.1-4.5); BUN 41 mg/dl (7-24); CHLORIDE 99 mmol/L (98-107); CREATININE 0.85 mg/dL (0.55-1.02); LDH 320 U/L (84-246); POTASSIUM 4.1 mmol/L (3.5-5.1); SGOT/AST 14 IU/L (3-35); SGPT/ALT 21 U/L (12-78); SODIUM 133 mmol/L (136-145)
[2020-05-31 05:58] LABS: ALKALINE PHOSPHATASE 119 U/L (45-117)
[2020-05-31 06:05] LABS: HEMATOCRIT 32.3 % (37.0-47.0); MEAN CELL VOLUME 84.1 fl (81.0-99.0); MEAN CORPUSCULAR HGB 27.6 pg (27.0-31.0); MEAN CORPUSCULAR HGB CONC 32.8 g/dl (33.0-37.0); MEAN PLATELET VOLUME 11.8 fl (9.6-12.3); PLATELET COUNT AUTOMATED 248 10*3/uL (130-400); RED BLOOD COUNT 3.84 10*6/uL (4.10-5.10); RED CELL DISTRI WIDTH 14.6 % (0-14.5); WHITE BLOOD COUNT 10.7 10*3/uL (4.8-10.8)
[2020-05-31 07:49] LABS: PLATELET SUFFICIENCY NORMAL (NORMAL); TOTAL CELLS COUNTED 100 #CELLS
[2020-05-31 08:00] VITALS: BP 128/64
--- NOTE | 2020-05-31 08:00 | NUR ---
PT AAOX3. RESP. SLIGHTLY LABOED ON 15L HIGH FLOW OXYGEN. POX 88%. BIPAP REAPPLIED. POX UP TO 95%. WHEEZING NOTED IN LUNG GARCIA. PT WAS ABLE TO COUGH UP A LARGE AMOUNT OF THICK MUCUS PRIOR TO GOING BACK ON BIPAP. WILL CONTNUE TO MONITOR PT.
[2020-05-31 09:23] LABS: ABG BASE EXCESS 1.8 mmol/L (-2.0-2.0); ARTERIAL BLOOD GAS PH 7.362 (7.35-7.45)
--- NOTE | 2020-05-31 10:37 | NUR ---
PATIENT IS NOW 4TH ON THE WAITING LIST FOR [facility].
--- NOTE | 2020-05-31 10:58 | NUR ---
DENTAL TREATMENT COORDINATOR FAXED UPDATES TO [facility] FOR REVIEW.
--- NOTE | 2020-05-31 11:00 | NUR ---
DR GARCIA AND DR ROMERO IN TO SEE PT.
[2020-05-31 12:00] VITALS: BP 145/75
--- NOTE | 2020-05-31 14:26 | NUR ---
PT RESTING ON BIPAP. NO ACUTE DISTRESS NOTED AT THIS TIME.
[2020-05-31 16:00] VITALS: BP 139/69
--- NOTE | 2020-05-31 18:22 | NUR ---
PT EATING DINNER. PT ON 15L HIGH FLOW NASAL CANNULA. POX 93%.
[2020-05-31 20:00] VITALS: BP 158/71
--- NOTE | 2020-05-31 20:00 | NUR ---
PT RESTING IN BED WITH EYES CLOSED, AWAKENS WITH EASE. A&OX3, PLEASANT AND COOPERATIVE WITH STAFF. RESP NONLABORED. BIPAP ON ORDERED. RIGHT IHJ MLC AND RIGHT ARTLINE PATENT, DRESSINGS DRY AND INTACT. DIAZ PATENT FOR DARK [place] URINE. NO S/S OF HYPO/HYPERGLYCEMIA NOTED. NO COMPLAINTS VOICED. ISOLATION PRECAUTIONS MAINTAINED.
[2020-06-01] VITALS: BP 160/71
[2020-06-01 04:00] VITALS: BP 160/72
[2020-06-01 05:34] LABS: ALBUMIN 3.3 gm/dl (3.1-4.5); BUN 37 mg/dl (7-24); CHLORIDE 98 mmol/L (98-107); CREATININE 0.86 mg/dL (0.55-1.02); POTASSIUM 3.7 mmol/L (3.5-5.1); SGOT/AST 9 IU/L (3-35); SGPT/ALT 26 U/L (12-78); SODIUM 134 mmol/L (136-145); TOTAL PROTEIN 6.4 gm/dL (6.4-8.2)
[2020-06-01 05:36] LABS: ALKALINE PHOSPHATASE 113 U/L (45-117); LDH 283 U/L (84-246)
[2020-06-01 06:12] LABS: HEMATOCRIT 31.1 % (37.0-47.0); MEAN CELL VOLUME 82.9 fl (81.0-99.0); MEAN CORPUSCULAR HGB 26.9 pg (27.0-31.0); MEAN CORPUSCULAR HGB CONC 32.5 g/dl (33.0-37.0); PLATELET COUNT AUTOMATED 221 10*3/uL (130-400); RED BLOOD COUNT 3.75 10*6/uL (4.10-5.10); RED CELL DISTRI WIDTH 14.3 % (0-14.5); WHITE BLOOD COUNT 8.7 10*3/uL (4.8-10.8)
[2020-06-01 06:53] LABS: ATYPICAL LYMPHS 1 % (0-0); PLATELET SUFFICIENCY NORMAL (NORMAL); TOTAL CELLS COUNTED 100 #CELLS
[2020-06-01 07:36] LABS: ABG BASE EXCESS 4.7 mmol/L (-2.0-2.0); ARTERIAL BLOOD GAS PH 7.404 (7.35-7.45)
[2020-06-01 08:00] VITALS: BP 161/74
--- NOTE | 2020-06-01 09:21 | NUR ---
PLANT OPERATIONS MANAGER SPOKE WITH [facility] PATIENT REMAINS 4TH ON THE WAITING LIST. PLANT OPERATIONS MANAGER FAXED REFERRAL TO [facility] FOR REVIEW.
[2020-06-01 12:00] VITALS: BP 160/76
--- NOTE | 2020-06-01 12:03 | NUR ---
AIRPORT MAINTENANCE LABORER SPOKE WITH [facility]LAND. THEY ARE UNABLE TO ACCOMMODATE THE BIPAP AT 60%. THEY WILL CONTINUE TO FOLLOW. AIRPORT MAINTENANCE LABORER DID SEND RECENT PROGRESS NOTES. AIRPORT MAINTENANCE LABORER FAXED UPDATES TO [facility] FOR REVIEW.
[2020-06-01 14:27] LABS: ARTERIAL BLOOD GAS PH 7.424 (7.35-7.45)
[2020-06-01 16:00] VITALS: BP 149/75
[2020-06-01 17:09] LABS: ABG BASE EXCESS 4.9 mmol/L (-2.0-2.0); ARTERIAL BLOOD GAS PH 7.416 (7.35-7.45)
--- NOTE | 2020-06-01 18:19 | NUR ---
PT STILL WITH INCREASED HR AND BP, SPOKE WITH DR GARCIA, WILL TRY PRN DILAUDID 0.5MG GIVEN FOR POSSIBLE PAIN
[2020-06-01 20:00] VITALS: BP 157/69
[2020-06-02] VITALS: BP 157/72
[2020-06-02 04:00] VITALS: BP 149/72
[2020-06-02 06:13] LABS: BUN 33 mg/dl (7-24); CHLORIDE 98 mmol/L (98-107); CREATININE 0.74 mg/dL (0.55-1.02); LDH 327 U/L (84-246); POTASSIUM 3.8 mmol/L (3.5-5.1); SODIUM 136 mmol/L (136-145)
[2020-06-02 06:15] LABS: HEMATOCRIT 31.2 % (37.0-47.0); MEAN CELL VOLUME 85.5 fl (81.0-99.0); MEAN CORPUSCULAR HGB 27.7 pg (27.0-31.0); MEAN CORPUSCULAR HGB CONC 32.4 g/dl (33.0-37.0); MEAN PLATELET VOLUME 11.5 fl (9.6-12.3); NUCLEATED RED BLOOD CELL 0.2 % (0.0-0.0); PLATELET COUNT AUTOMATED 228 10*3/uL (130-400); RED BLOOD COUNT 3.65 10*6/uL (4.10-5.10); RED CELL DISTRI WIDTH 14.6 % (0-14.5); WHITE BLOOD COUNT 12.1 10*3/uL (4.8-10.8)
[2020-06-02 08:00] VITALS: BP 132/75
[2020-06-02 08:10] LABS: ARTERIAL BLOOD GAS PH 7.357 (7.35-7.45)
[2020-06-02 08:26] LABS: PLATELET SUFFICIENCY NORMAL (NORMAL); TOTAL CELLS COUNTED 100 #CELLS
[2020-06-02 12:00] VITALS: BP 132/73
--- NOTE | 2020-06-02 13:00 | NUR ---
PT PLACED ON 15L HIGH FLOW O2. TOLERATING WELL. DARIN ESPOSITORN
--- NOTE | 2020-06-02 15:39 | NUR ---
PT REQUEST TO BE PUT BACK ON BIPAP. PULSE OX 93% ON 15L HIGH FLOW. TOLERATED WELL. PLACED ON BIPAP AT 40%. DARIN ESPOSITO RN
[2020-06-02 16:00] VITALS: BP 141/75
[2020-06-02 19:16] LABS: ABG BASE EXCESS 4.6 mmol/L (-2.0-2.0); ARTERIAL BLOOD GAS PH 7.425 (7.35-7.45)
[2020-06-02 20:00] VITALS: BP 135/67
--- NOTE | 2020-06-02 21:00 | NUR ---
PATIENT ASSISTED OFF BEDPAN AT THIS TIME. SMALL MUSHY BROWN BM. REQUESTING TO BE PLACED ON BIPAP SHE STATES SHE FEELS SOB R/T MOVING. PULSE OXIMETRY IS STABLE 98% ON 12LITERS HIGH FLOW. RN PLACED PATIENT ON BIPAP PER HER REQUEST, O2 SAT IS CURRENTLY 94%. RN WILL CONTINUE TO MONITOR
[2020-06-03] VITALS: BP 111/58
[2020-06-03 04:00] VITALS: BP 128/66
--- NOTE | 2020-06-03 05:00 | NUR ---
PATIENT STILL ON BIPAP, BLOOD WORK DRAWN AND SENT ON THIS PATIENT. NO COMPLAINTS
[2020-06-03 05:31] LABS: ALBUMIN 3.1 gm/dl (3.1-4.5); ALKALINE PHOSPHATASE 113 U/L (45-117); BUN 30 mg/dl (7-24); CHLORIDE 101 mmol/L (98-107); CREATININE 0.79 mg/dL (0.55-1.02); LDH 282 U/L (84-246); POTASSIUM 3.7 mmol/L (3.5-5.1); SGOT/AST 13 IU/L (3-35); SGPT/ALT 27 U/L (12-78); SODIUM 136 mmol/L (136-145); TOTAL PROTEIN 6.3 gm/dL (6.4-8.2)
[2020-06-03 06:36] LABS: HEMATOCRIT 32.5 % (37.0-47.0); MEAN CORPUSCULAR HGB 27.4 pg (27.0-31.0); MEAN CORPUSCULAR HGB CONC 32.6 g/dl (33.0-37.0); MEAN PLATELET VOLUME 12.2 fl (9.6-12.3); NUCLEATED RED BLOOD CELL 0.1 % (0.0-0.0); PLATELET COUNT AUTOMATED 240 10*3/uL (130-400); RED BLOOD COUNT 3.87 10*6/uL (4.10-5.10); RED CELL DISTRI WIDTH 14.8 % (0-14.5); WHITE BLOOD COUNT 14.4 10*3/uL (4.8-10.8)
[2020-06-03 07:10] LABS: OVALOCYTES FEW; PLATELET SUFFICIENCY NORMAL (NORMAL); POLYCHROMASIA SLIGHT; TOTAL CELLS COUNTED 100 #CELLS
[2020-06-03 08:00] VITALS: BP 145/66
--- NOTE | 2020-06-03 08:25 | NUR ---
PATIENT TAKEN OFF OF BI-PAP, PLACED ON 15 L/M HIGH FLOW.
--- NOTE | 2020-06-03 08:30 | NUR ---
PT AAOX3. VSS. POX 98% ON 12L HIGH FLOW OXYGEN. LUNG GARCIA DIM. W/ OCCASIONAL WHEEZING NOTED. PT STATES HER COUGH IS NONPRODUCTIVE AT THIS TIME. ABD. OBESE WITH ACTIVE BOWEL SOUNDS. PT DID HAVE A BROWN DIARRHEA STOOL. DIAZ PATENT FOR [place] COLORED URINE. NO PERIPHERAL EDEMA NOTED AT THIS TIME. R IJ MLC SITE ASYMP. BLEEDING NOTED FROM RIGHT BRACHIAL ART. LINE. DRESSING CHANGED. PT ENCOURAGED TO PRONE TOLERATED. PT C/O ANXIETY. MEDICATED PT WITH ROUTINE XANAX. WILL CONTINUE TO MONITOR PT.
[2020-06-03 08:40] LABS: ABG BASE EXCESS 2.4 mmol/L (-2.0-2.0); ARTERIAL BLOOD GAS PH 7.434 (7.35-7.45)
--- NOTE | 2020-06-03 10:45 | NUR ---
PT RESTING. VSS. POX 99% ON 12L HIGH FLOW NASAL CANULA. WILL CONTINUE TO MONITOR PT.
[2020-06-03 12:00] VITALS: BP 136/66
--- NOTE | 2020-06-03 13:23 | NUR ---
PT RESTING. VSS. NO ACUTE DISTRESS NOTED.
--- NOTE | 2020-06-03 15:00 | NUR ---
PATIENT TAKEN OFF OF BI-PAP, PLACED ON 12 L/M HIGH FLOW.
--- NOTE | 2020-06-03 15:36 | NUR ---
ZOFRAN GIVEN FOR NAUSEA & ANXIETY..
--- NOTE | 2020-06-03 15:40 | NUR ---
PT REQUESTING BIPAP TO BE PLACED BACK ON HER AT THIS TIME. EXPLAINED TO HER THAT HER POX IS 96% WHICH IS VERY GOOD AND THAT DR GARCIA WOULD LIKE HER TO BE ON HIGH GITA NASAL CANULA FOR AT LEAST 2 HOURS SO THAT WE CAN GET AN ABG. PT REFUSED. SHE STATED " I CAN'T DO IT.....I NEED THE BIPAP NOW." BIPAP REAPPLIED. WILL CONTINUE TO MONITOR PT.
[2020-06-03 16:00] VITALS: BP 142/62
[2020-06-03 17:17] LABS: ABG BASE EXCESS 3.2 mmol/L (-2.0-2.0); ARTERIAL BLOOD GAS PH 7.434 (7.35-7.45)
--- NOTE | 2020-06-03 17:30 | NUR ---
RIGHT RADIAL ART LINE D/'C INTACT PER ORDER. PRESSURE DRESSING APPLIED. PT TOLERATED PROCEDURE WELL.
--- NOTE | 2020-06-03 18:50 | NUR ---
PT TRANSFERED TO [facility]. PT REPORT GIVEN TO RECEIVING NURSE.
--- NOTE | 2020-06-03 19:43 | NUR ---
24 HR CHART CHECK COMPLETE.
--- NOTE | 2020-06-03 22:10 | NUR ---
DR GRAY CONTACTED REGARDING PATIENTS HR OF 160-170. STAT EKG OBTAINED.
--- NOTE | 2020-06-03 22:30 | NUR ---
PT'S HR NOW NSR IN THE 70'S. RESIDENT NOTIFIED.
[2020-06-04] VITALS: BP 148/81
[2020-06-04 06:29] LABS: MEAN CELL VOLUME 86.1 fl (81.0-99.0); MEAN CORPUSCULAR HGB 27.8 pg (27.0-31.0); MEAN CORPUSCULAR HGB CONC 32.2 g/dl (33.0-37.0); MEAN PLATELET VOLUME 11.3 fl (9.6-12.3); NUCLEATED RED BLOOD CELL 0.1 10*3/uL (0.0-0.0); NUCLEATED RED BLOOD CELL 0.3 % (0.0-0.0); PLATELET COUNT AUTOMATED 278 10*3/uL (130-400); RED BLOOD COUNT 4.18 10*6/uL (4.10-5.10); RED CELL DISTRI WIDTH 15.5 % (0-14.5); WHITE BLOOD COUNT 23.9 10*3/uL (4.8-10.8)
[2020-06-04 06:43] LABS: ALBUMIN 3.2 gm/dl (3.1-4.5); ALKALINE PHOSPHATASE 120 U/L (45-117); BUN 35 mg/dl (7-24); CHLORIDE 102 mmol/L (98-107); CREATININE 0.88 mg/dL (0.55-1.02); LDH 320 U/L (84-246); POTASSIUM 3.4 mmol/L (3.5-5.1); SGOT/AST 16 IU/L (3-35); SGPT/ALT 26 U/L (12-78); SODIUM 141 mmol/L (136-145); TOTAL PROTEIN 6.4 gm/dL (6.4-8.2)
[2020-06-04 07:41] LABS: OVALOCYTES FEW; PLATELET SUFFICIENCY NORMAL (NORMAL); POLYCHROMASIA SLIGHT; TOTAL CELLS COUNTED 100 #CELLS
--- NOTE | 2020-06-04 07:55 | NUR ---
PATIENT PLACED ON BI-PAP 07/06, 40%.
[2020-06-04 08:00] VITALS: BP 128/68
--- NOTE | 2020-06-04 08:13 | NUR ---
24 HR chart check completed.
--- NOTE | 2020-06-04 09:00 | NUR ---
SLEEPING, AWAKENS EASILY. RESPIRATIONS EASY. LUNGS DIMINISHED WITH I&E WHEEZES. PULSE OX 90% ON BI-PAP, CONT PULSE OX MAINTAINED. HACKY COUGH. DIAZ PATENT. CALL LIGHT WITHIN REACH. NO VOICED COMPLAINTS. BED ALARM MAINTAINED FOR SAFETY
[2020-06-04 12:00] VITALS: BP 117/70
--- NOTE | 2020-06-04 12:00 | NUR ---
SLEEPING. RESPIRATIONS EASY. PULSE OX 97% ON BI-PAP WITH CONT PULSE OX MAINTAINED. CALL LIGHT WITHIN REACH. BED ALARM MAINTAINED FOR SAFETY
[2020-06-04 16:00] VITALS: BP 140/58
--- NOTE | 2020-06-04 16:00 | NUR ---
BI-PAP REMOVED AT PATIENT'S REQUEST. PULSE OX 93% 12L HIGH-FLOW. WILL MONITOR
--- NOTE | 2020-06-04 18:15 | NUR ---
PLACED BACK ON BI-PAP AT PATIENT REQUEST, CONT PULSE OX MAINTAINED
--- NOTE | 2020-06-04 19:00 | NUR ---
SLEEPING. BI-PAP IN USE
[2020-06-04 20:00] VITALS: BP 115/76
--- NOTE | 2020-06-04 22:00 | NUR ---
REMAINS ON BI-PAP RESTING WITH NO ACUTE DISTRESS NOTED. CONT PULSE OX MAINTAINED, 95%
[2020-06-05] VITALS: BP 105/53
[2020-06-05 06:21] LABS: ALBUMIN 2.9 gm/dl (3.1-4.5); ALKALINE PHOSPHATASE 123 U/L (45-117); CHLORIDE 101 mmol/L (98-107); CREATININE 1.12 mg/dL (0.55-1.02); LDH 266 U/L (84-246); POTASSIUM 2.9 mmol/L (3.5-5.1); SGOT/AST 9 IU/L (3-35); SGPT/ALT 23 U/L (12-78); SODIUM 137 mmol/L (136-145); TOTAL PROTEIN 6.3 gm/dL (6.4-8.2)
[2020-06-05 06:24] LABS: BUN 45 mg/dl (7-24)
[2020-06-05 07:33] LABS: HEMATOCRIT 35.4 % (37.0-47.0); MEAN CELL VOLUME 87.6 fl (39.0-55.0); MEAN CORPUSCULAR HGB 27.7 pg (27.0-31.0); MEAN CORPUSCULAR HGB CONC 31.6 g/dl (33.0-37.0); MEAN PLATELET VOLUME 12.2 fl (9.6-12.3); NUCLEATED RED BLOOD CELL 0.1 10*3/uL (0.0-0.0); NUCLEATED RED BLOOD CELL 0.2 % (0.0-0.0); PLATELET COUNT AUTOMATED 252 10*3/uL (300-700); RED BLOOD COUNT 4.04 10*6/uL (4.10-5.10); WHITE BLOOD COUNT 25.4 10*3/uL (4.8-10.8)
--- NOTE | 2020-06-05 07:54 | NUR ---
DIRECTOR MEDICAL FAXED UPDATES TO [facility] FOR REVIEW.
[2020-06-05 07:58] LABS: POLYCHROMASIA SLIGHT; TOTAL CELLS COUNTED 100 #CELLS
[2020-06-05 07:59] LABS: OVALOCYTES FEW; PLATELET SUFFICIENCY NORMAL (NORMAL)
[2020-06-05 08:00] VITALS: BP 112/78
--- NOTE | 2020-06-05 08:30 | NUR ---
PT OFF BIPAP AND ON 12L HIGHFLOW NASAL CANNULA TO EAT BREAKFAST. SPO2 97%.
--- NOTE | 2020-06-05 09:27 | NUR ---
SEED MILL SUPERINTENDENT FAXED REFERRAL TO [facility] FOR REVIEW.
[2020-06-05 12:00] VITALS: BP 116/79
--- NOTE | 2020-06-05 12:11 | NUR ---
TOPOGRAPHICAL SURVEYOR ATTEMPTED TO SPEAK WITH THE PATIENT RT ANSWERED AND STATED THIS PATIENT JUST WENT ONTO THE BIPAP AND WILL NOT BE OFF FOR ANOTHER 2 HOURS.
--- NOTE | 2020-06-05 12:15 | NUR ---
[facility]. attempted to call patient and talk with her regarding this, no answer. case management called and discussed this with patient's . educated him on what services were offered at the [facility] and why patient would be discharged there. was in agreement with patient going to [facility]. he will talk with patient, case management will also try and talk with patient
--- NOTE | 2020-06-05 12:15 | NUR ---
Occupational Therapy evaluation completed on four with full evaluation to follow. Recommend occupational therapy per plan of care and SNF upon discharge. Thank you for this referral. Sis Franco OTR/L
--- NOTE | 2020-06-05 12:15 | NUR ---
PHYSICAL THERAPY Physical Therapy evaluation completed on 4E with full evaluation to follow. Moderate complexity skilled PT evaluation per chart review and evaluation, [address]. Recommend physical therapy per plan of care and SNF upon discharge. Thank you for this referral. Aster Wang,PT,DPT
--- NOTE | 2020-06-05 14:44 | NUR ---
OF BIPAP AT THIS TIME ON 9LHFNC
--- NOTE | 2020-06-05 14:55 | NUR ---
RADIO ELECTRONICS TECHNICIAN CONTACTED THIS PATIENT. RADIO ELECTRONICS TECHNICIAN EXPLAINED THE 3 OPTIONS FOR DISCHARGE PLANS, [facility], [facility], AND [facility]. RADIO ELECTRONICS TECHNICIAN EXPLAINED THAT THIS PATIENT IS ACCEPTED TO [facility] AND COULD LIKELY DISCHARGE TOMORROW. PATIENT STATED SHE NEEDED TO SPEAK TO HER . RADIO ELECTRONICS TECHNICIAN TO FOLLOW IN THE MORNING.
--- NOTE | 2020-06-05 17:07 | NUR ---
RIGHT IJ ACCESS DISCONTINUED AT THIS TIME. IV STARTED IN PATIENT'S RAC.
--- NOTE | 2020-06-05 19:50 | NUR ---
24 HR chart check completed.
[2020-06-05 20:00] VITALS: BP 100/59
--- NOTE | 2020-06-05 21:00 | NUR ---
RESTING IN BED WITH NO ACUTE DISTRESS NOTED. RESPIRATIONS EASY. LUNGS DIMINISHED. PULSE OX 97% 8L HIGH FLOW. CLAIMS COUGH PROD FOR BROWN. EMILY PATENT. CALL LIGHT WITHIN REACH. NO VOICED COMPLAINTS
--- NOTE | 2020-06-05 22:00 | NUR ---
INCONT STOOL. PATIENT AND LINENS CHANGED. ENCOURAGED TO CHANGE POSITIONS PATIENT PREFERS LEFT. LAYING ON BACK
[2020-06-06] VITALS: BP 100/56
--- NOTE | 2020-06-06 00:05 | NUR ---
PLACED ON BI-PAP AT PATIENT'S REQUEST. CONT PULSE OX MAINTAINED
--- NOTE | 2020-06-06 00:09 | NUR ---
Nurse placed pt on Bipap for the night. Alarms on and audible.
--- NOTE | 2020-06-06 02:00 | NUR ---
SLEEPING. BI-PAP IN USE.
--- NOTE | 2020-06-06 05:00 | NUR ---
PATIENT REMOVED FROM BI-PAP AND PLACED ON 8L HIGH FLOW. TOLERATING. CONT PULSE OX MAINTAINED, 96%. CALL LIGHT WITHIN REACH. NO VOICED COMPLAINTS
--- NOTE | 2020-06-06 06:00 | NUR ---
SLEEPING, O2 IN USE VIA HIGH FLOW NASAL CANNULA. PULSE OX 99%
[2020-06-06 07:22] LABS: HEMATOCRIT 31.3 % (37.0-47.0); MEAN CELL VOLUME 85.3 fl (81.0-99.0); MEAN CORPUSCULAR HGB 27.5 pg (27.0-31.0); MEAN CORPUSCULAR HGB CONC 32.3 g/dl (33.0-37.0); MEAN PLATELET VOLUME 10.9 fl (9.6-12.3); NUCLEATED RED BLOOD CELL 0.2 % (0.0-0.0); PLATELET COUNT AUTOMATED 215 10*3/uL (130-400); RED BLOOD COUNT 3.67 10*6/uL (4.10-5.10); RED CELL DISTRI WIDTH 15.9 % (0-14.5)
[2020-06-06 07:37] LABS: ALBUMIN 2.7 gm/dl (3.1-4.5); ALKALINE PHOSPHATASE 119 U/L (45-117); BUN 48 mg/dl (7-24); CHLORIDE 98 mmol/L (98-107); CREATININE 1.13 mg/dL (0.55-1.02); LDH 253 U/L (84-246); POTASSIUM 2.7 mmol/L (3.5-5.1); SGOT/AST 12 IU/L (3-35); SGPT/ALT 27 U/L (12-78); SODIUM 134 mmol/L (136-145); TOTAL PROTEIN 5.7 gm/dL (6.4-8.2)
[2020-06-06 08:00] VITALS: BP 118/58
[2020-06-06 08:05] LABS: TOTAL CELLS COUNTED 100 #CELLS
[2020-06-06 08:06] LABS: PLATELET SUFFICIENCY NORMAL (NORMAL); POLYCHROMASIA SLIGHT
--- NOTE | 2020-06-06 08:32 | NUR ---
[employer] BI ARCHITECT SPOKE WITH THIS PATIENT VIA PHONE CALL. PATIENT STATED SHE SPOKE WITH HER AND THEY PREFER HER TO GO TO [facility]. [employer] BI ARCHITECT FAXED UPDATES TO [facility] FOR REVIEW.
--- NOTE | 2020-06-06 09:32 | NUR ---
PER JAYDA-PATIENT IS 1ST ON THE WAITING LIST FOR [facility]. SENIOR CONTROL SYSTEMS ENGINEER CHRIS IS AWARE.
--- NOTE | 2020-06-06 10:25 | NUR ---
OT NOTE Attempted to see pt this A.M. for OT session and upon arrival pt was on BIPAP and under nursing care. Will check at a later time and continue with POC as able. MICHELLE Estrada/Anna
[2020-06-06 12:00] VITALS: BP 108/50
--- NOTE | 2020-06-06 12:00 | NUR ---
DISCONTINUED DIAZ CATH AT THIS TIME PER DR - PT TOLERATED WELL - 200CC CLEAR [place] URINE ON REMOVAL.
--- NOTE | 2020-06-06 12:49 | NUR ---
[facility] IS ABLE TO ACCEPT THE PATIENT TODAY. SOURCING ASSISTANT NOTIFIED OF PATIENT NEEDING DISCHARGED. SOURCING ASSISTANT SPOKE WITH RN VIDAL AND INFORMED HER OF PATIENT GOING TO BE DISCHARGED. PER [facility] SHE REQUESTED A TRANSPORT AFTER 7PM. SOURCING ASSISTANT WILL ARRANGE TRANSPORTATION.
--- NOTE | 2020-06-06 12:57 | NUR ---
[facility] IS AWARE OF PENDING DISCHARGE AND [facility] REQUESTED TIME FOR TRANSPORTATION. MECHANIC SOUND TECHNICIAN ARRANGED FOR [facility] TO TRANSPORT THIS PATIENT AT 7PM THIS EVENING. MECHANIC SOUND TECHNICIAN NOTIFIED SHAISTA LANTIGUA OF TIME. MECHANIC SOUND TECHNICIAN ATTEMPTED TO CALL PATIENT ROOM, NO ANSWER. MECHANIC SOUND TECHNICIAN REACHED OUT TO PATIENTS AND INFORMED HIM OF PENDING DISCHARGE AND TRANSPORTATION. HE IS AGREEABLE. MECHANIC SOUND TECHNICIAN PROVIDED HIM WITH [employer] CONTACT INFORMATION. MECHANIC SOUND TECHNICIAN TO FAX DISCHARGE ORDERS TO [facility] TO [facility].
[2020-06-06] MEDS ORDERED: METOPROLOL SUCC25 M2 PO (13:55)
[2020-06-06] MEDS ORDERED: DULOXETINE HCL20 MG PO (13:55)
[2020-06-06] MEDS ORDERED: ENOXAPARIN120 MG/0.2 SC (13:55)
[2020-06-06] MEDS ORDERED: OXYGEN NAS (13:57)
[2020-06-06 16:00] VITALS: BP 112/62
--- NOTE | 2020-06-06 18:45 | NUR ---
REPORT GIVEN TO RECEIVING NURSE AT [facility].
--- NOTE | 2020-06-06 19:45 | NUR ---
PATIENT DISCHARGED VIA [facility].
--- NOTE | 2020-06-07 07:43 | NUR ---
OCCUPATIONAL THERAPY CO-SIGN I approve of the Occupational Therapy notes written above. ISSA LUO, OTR/L
--- NOTE | 2020-06-07 07:54 | NUR ---
PHYSICAL THERAPY CO-SIGN I approve of the Physical Therapy notes written above. EPHRAIM SHEFFIELD PT,DPT
== END 2020-06-06 19:55 | DRG 871 ==
LOC: ED 13:30 → ICCU 17:34 → 4E 17:34 → EDHOLD 17:34 → 4E 19:25 → ICCU 05-27 11:55 → 4E 06-03 18:31
PROVIDERS: Emergency Medicine; Internal Medicine; Internal Medicine Critical Care Medicine; Social Worker Clinical; Student in an Organized Health Care Education/Training Program; ADMIT Internal Medicine; ATTEND Internal Medicine
PROC: 05HY33Z Insertion of Infusion Device into Upper Vein, Percutaneous Approach (ICD-10-PCS; principal; 2020-05-25)
PROC: B54MZZA Ultrasonography of Right Upper Extremity Veins, Guidance (ICD-10-PCS; 2020-05-25)
PROC: 5A0935A Assistance with Respiratory Ventilation, Less than 24 Consecutive Hours, High Flow/Velocity Cannula (ICD-10-PCS; 2020-05-26)
PROC: XW033E5 Introduction of Remdesivir Anti-infective into Peripheral Vein, Percutaneous Approach, New Technology Group 5 (ICD-10-PCS; 2020-05-26)
PROC: 5A0935A Assistance with Respiratory Ventilation, Less than 24 Consecutive Hours, High Flow/Velocity Cannula (ICD-10-PCS; 2020-05-27)
PROC: 5A09557 Assistance with Respiratory Ventilation, Greater than 96 Consecutive Hours, Continuous Positive Airway Pressure (ICD-10-PCS; 2020-05-27)
PROC: 03HY32Z Insertion of Monitoring Device into Upper Artery, Percutaneous Approach (ICD-10-PCS; 2020-05-28)
PROC: B54NZZA Ultrasonography of Left Upper Extremity Veins, Guidance (ICD-10-PCS; 2020-05-28)
PROC: 03HY32Z Insertion of Monitoring Device into Upper Artery, Percutaneous Approach (ICD-10-PCS; 2020-05-29)
PROC: 5A0935A Assistance with Respiratory Ventilation, Less than 24 Consecutive Hours, High Flow/Velocity Cannula (ICD-10-PCS; 2020-06-03)
PROC: 5A09357 Assistance with Respiratory Ventilation, Less than 24 Consecutive Hours, Continuous Positive Airway Pressure (ICD-10-PCS; 2020-06-03)
PROC: 5A0935A Assistance with Respiratory Ventilation, Less than 24 Consecutive Hours, High Flow/Velocity Cannula (ICD-10-PCS; 2020-06-04)
PROC: 5A09357 Assistance with Respiratory Ventilation, Less than 24 Consecutive Hours, Continuous Positive Airway Pressure (ICD-10-PCS; 2020-06-04)
PROC: 5A0935A Assistance with Respiratory Ventilation, Less than 24 Consecutive Hours, High Flow/Velocity Cannula (ICD-10-PCS; 2020-06-05)
PROC: 5A0935A Assistance with Respiratory Ventilation, Less than 24 Consecutive Hours, High Flow/Velocity Cannula (ICD-10-PCS; 2020-06-06)
PROC: 5A09357 Assistance with Respiratory Ventilation, Less than 24 Consecutive Hours, Continuous Positive Airway Pressure (ICD-10-PCS; 2020-06-06)
DX: A41.9 Sepsis, unspecified organism (principal); U07.1 COVID-19; J12.89 Other viral pneumonia; N17.0 Acute kidney failure with tubular necrosis; J96.21 Acute and chronic respiratory failure with hypoxia; I50.30 Unspecified diastolic (congestive) heart failure; J44.0 Chronic obstructive pulmonary disease with (acute) lower respiratory infection; I13.0 Hypertensive heart and chronic kidney disease with heart failure and stage 1 through stage 4 chronic kidney disease, or unspecified chronic kidney disease; D68.59 Other primary thrombophilia; Z68.43 Body mass index [BMI] 50.0-59.9, adult; R65.20 Severe sepsis without septic shock; I48.91 Unspecified atrial fibrillation; G89.29 Other chronic pain; N18.30 Chronic kidney disease, stage 3 unspecified; E78.5 Hyperlipidemia, unspecified; E66.01 Morbid (severe) obesity due to excess calories; E83.41 Hypermagnesemia; E11.65 Type 2 diabetes mellitus with hyperglycemia; G47.33 Obstructive sleep apnea (adult) (pediatric); E11.22 Type 2 diabetes mellitus with diabetic chronic kidney disease; E87.5 Hyperkalemia; E83.39 Other disorders of phosphorus metabolism; F41.1 Generalized anxiety disorder; T38.0X5A Adverse effect of glucocorticoids and synthetic analogues, initial encounter; Z88.2 Allergy status to sulfonamides; Z88.8 Allergy status to other drugs, medicaments and biological substances; Z98.891 History of uterine scar from previous surgery; Z90.49 Acquired absence of other specified parts of digestive tract; Z87.891 Personal history of nicotine dependence; Z82.5 Family history of asthma and other chronic lower respiratory diseases; Z86.010 Personal history of colon polyps; Z79.01 Long term (current) use of anticoagulants; Y92.89 Other specified places as the place of occurrence of the external cause; Z79.899 Other long term (current) drug therapy